=== PATIENT | female | born 1965 | race Caucasian/White ===

== ENCOUNTER 2025-08-10 14:55 | Emergency (ER) | payer OTHER, SELFPAY ==
--- NOTE | ~2025-08-10 | CT_ITS ---
Nanci Linder EXAMINATION: CT abdomen pelvis w con COMPARISON: None HISTORY: ab pain TECHNIQUE: Axial images were obtained through the abdomen, pelvis post administration of IV contrast. Oral contrast was also administered. Coronal reconstruction images were obtained from the axial views. CT scan performed using dose optimization techniques including the following automated exposure control; adjustment of mA and/or kV; use of iterative reconstruction technique. Automatic exposure control was used to reduce radiation dose. Permanent radiation dose record is archived to PACS. FINDINGS: CT abdomen: LUNG BASES: The lung bases demonstrate pulmonary fibrotic changes with basilar areas of atelectasis. LIVER: Mild hepatic steatosis. Portal vein patent. No intrahepatic biliary duct dilatation. SPLEEN: Unremarkable. KIDNEYS: Right Kidney: Right kidney subcentimeter renal cyst. Left Kidney: Left kidney subcentimeter renal cysts. ADRENAL GLANDS: Unremarkable. PANCREAS: Mild pancreatic atrophy. GALLBLADDER/BILIARY: Post cholecystectomy. STOMACH AND ESOPHAGUS: The stomach appears decompressed. BOWEL/MESENTERY: There are inflammatory changes surrounding the sigmoid colon consistent with acute diverticulitis, there is no perforation or abscess. Moderate fecal content throughout the remaining large bowel. Appendix normal. Mesentery normal. Small bowel prominent. Mild hyperemia noted of the rectum consistent with mild proctitis. ADENOPATHY/RETROPERITONEUM: No lymphadenopathy. AORTA/VASCULATURE: Partially imaged bilateral breast implants. FREE FLUID OR FREE AIR: Small amount of free fluid.. CT pelvis: SOLID ORGANS/REPRODUCTIVE: Uterine cavity is abnormally prominent in this postmenopausal patient, pelvic ultrasound recommended. No adnexal mass. BLADDER: Within normal limits. OSSEOUS STRUCTURES: No acute osseous abnormality.No suspicious lesions. OVERLYING SOFT TISSUES: Unremarkable. IMPRESSION: 1. Acute diverticulitis. No perforation or abscess. 2. incidental findings above Reviewed, dictated and finalized at location A.
[2025-08-10 15:03] VITALS: BP 155/110; PULSE 110; RESP 20; TEMP 36.6; O2SAT 96
--- NOTE | 2025-08-10 15:41 | ED.GENADULT ---
HPI - General Adult General Chief complaint: Abdominal Pain Stated complaint: abd pain Time Seen by Provider: 08/10/25 15:10 History of Present Illness HPI narrative: 60-year-old female presents emergency department for evaluation for diffuse abdominal pain. Patient states abdominal pain started last night and has progressively worsened. Patient stated initially began as lower abdominal pain and she suspected she was having issues with constipation. Patient reports over the course of the night that the pain became more diffuse. Patient states she did have some associated nausea and vomiting. Patient does have prior history of diverticulitis. Patient does have history of cholecystectomy. Patient still has her appendix. Related Data Allergies Allergy/AdvReac Type Severity Reaction Status Date / Time No Known Allergies Allergy Verified 08/10/25 15:00 Review of Systems Review of Systems: All systems reviewed & are unremarkable except as noted in HPI and below Exam Narrative: APPEARANCE: Well appearing, no pain, no distress, well-nourished. HEAD: normocephalic, atraumatic. EYES: PERRLA/EOMI, conjunctivae clear. NOSE: Normal no drainage EARS:TMS clear with good light reflex. THROAT: Pharynx clear, no exudate. NECK: Supple. No adenopathy, no masses. RESPIRATORY: Airway patent, respirations nonlabored. Clear to auscultation bilaterally, no rales, rhonchi, wheezing. CARDIOVASCULAR: Regular rate and rhythm without murmurs rubs or gallops. ABDOMINAL: Diffuse abdominal tenderness to palpation MUSCULOSKELETAL: Moves all extremities. Strength/ROM intact, No edema, No calf tenderness. NEURO: Alert. Cranial nerves II through XII intact. Good gait. Good coordination SKIN: Warm, dry. Normal Color Course Vital Signs Vital signs: Vital Signs Temperature 97.8 F 08/10/25 15:03 Pulse Rate 110 H 08/10/25 15:03 Respiratory Rate 08/10/25 15:03 Blood Pressure 155/110 H 08/10/25 15:03 Pulse Oximetry 96 08/10/25 15:03 Temperature 97.8 F 08/10/25 15:03 Pulse Rate 99 08/10/25 16:02 Respiratory Rate 08/10/25 16:02 Blood Pressure 164/105 H 08/10/25 16:02 Pulse Oximetry 100 08/10/25 16:02 Oxygen Delivery Room Air 08/10/25 16:02 Medical Decision Making [facility] Narrative Medical decision making narrative: 60-year-old female presents emergency department for evaluation for lower abdominal pain. Patient is afebrile but does have a leukocytosis of 18.7 hemoglobin 15.0. Patient is INR 1.0. No significant abnormalities on her CMP. UA was negative for infection. CT scan did show evidence of diverticulitis, with no abscess no perforation. Patient family updated the results of the workup. Patient was started on Augmentin in the emergency department will be discharged home on Augmentin. Patient did receive Dilaudid and a L of lactated Ringer's in the emergency department. Patient will be provided outpatient follow-up with GI. All questions concerns were addressed patient was well-appearing at time of discharge. Patient did feel improved with treatment. Differential Diagnosis Differential Diagnosis: Colitis, diverticulitis, UTI, appendicitis, perforated gastric ulcer Vital Signs Vital Signs: Vital Signs Temperature 97.8 F 08/10/25 15:03 Pulse Rate 110 H 08/10/25 15:03 Respiratory Rate 20 08/10/25 15:03 Blood Pressure 155/110 H 08/10/25 15:03 Pulse Oximetry 96 08/10/25 15:03 Temperature 97.8 F 08/10/25 15:03 Pulse Rate 99 08/10/25 16:02 Respiratory Rate 20 08/10/25 16:02 Blood Pressure 164/105 H 08/10/25 16:02 Pulse Oximetry 100 08/10/25 16:02 Oxygen Delivery Room Air 08/10/25 16:02 Lab Data Lab results reviewed: Yes I reviewed the patient's lab results. 08/10/25 16:01 08/10/25 16:01 Labs: Lab Results 08/10/25 Range/Units 16:01 WBC 18.7 H (4.5-10.0) K/mm3 RBC 4.81 (4.2-5.4) M/mm3 Hgb 15.0 (12.0-15.0) g/dL Hct 44.7 (37.0-47.0) % MCV 92.9 (80-100) fl MCH 31.2 (26-34) pg MCHC 33.6 (32-36) g/dl RDW 12.3 (11.5-14.5) % Plt Count 327 (150-375) k/mm3 MPV 9.0 (7.4-10.4) fl Immature Gran % (Auto) 0.5 (0-0.5) % Neut % (Auto) 85.4 H (45.5-73.1) % Lymph % (Auto) 6.2 L (18.3-44.2) % [place] % (Auto) 7.3 (2.6-8.5) % Eos % (Auto) 0.4 (0-4.4) % Baso % (Auto) 0.2 (0.2-1.2) % Lymph # (Auto) 1.15 (0.9-3.2) K/mm3 [place] # (Auto) 1.4 H (0.1-0.6) K/mm3 Eos # (Auto) 0.1 (0-0.3) K/mm3 Baso # (Auto) 0.0 (0.0-0.1) K/mm3 Abs Immat Gran (auto) 0.10 H (0.00-0.031) K/mm3 Absolute Neuts (auto) 15.9 H (1.3-6.7) K/mm3 Absolute Nucleated RBC 0.000 (0.0-0.012) K/mm3 Nucleated RBC % 0.0 (0.0-0.2) % PT 13.4 (11.1-14.7) Seconds INR 1.0 APTT 32.0 (22.3-36.8) Seconds Sodium 135 L (137-145) mmol/L Potassium 3.8 (3.4-5.0) mmol/L Chloride 101 (98-107) mmol/L Carbon Dioxide 25 (22-30) mmol/L Anion Gap 9 (4-12) mmol/L BUN 15 (7-17) mg/dL Creatinine 0.78 (0.7-1.0) mg/dL Estim Creat Clear Calc 57 ml/min Estimated GFR > 60 (59 - ) Glucose 119 H (65-110) mg/dL Lactic Acid 1.2 (0.7-2.0) mmol/L Calcium 9.1 (8.4-10.2) mg/dL Total Bilirubin 1.0 (0.2-1.3) mg/dL AST 25 (14-36) U/L ALT 22 (6-35) U/L Alkaline Phosphatase 102 (38-126) U/L Total Protein 7.2 (6.3-8.2) g/dL Albumin 4.1 (3.5-5.1) g/dL Lipase 25 (23-300) U/L Urine Color Dark yellow (Yellow) Urine Appearance Clear (Clear) Urine pH 6.0 (5.0-9.0) Ur Specific [place] 1.025 (1.001-1.035) Urine Protein Trace (Negative) mg/dL Urine Glucose (UA) Negative (Negative) mg/dL Urine Ketones Trace H (Negative) mg/dL Ur Blood (Man) 2+ H (Negative) Urine Nitrate Negative (Negative) Urine Bilirubin Negative (Negative) Urine Urobilinogen 1.0 (<2.0) mg/dL Leukocyte Esterase Rfl Trace H (Negative) LESLIE/UL Urine RBC 11-20 H (0-2) /hpf Urine WBC 0-5 (0-3) /hpf Ur Squamous Epith Cells Few (Few) /hpf Urine Bacteria None seen /hpf Urine Casts 0-2 Imaging Data Radiologist's impression: Impressions Abdomen/Pelvis CT 08/10/25 16:56 IMPRESSION: 1. Acute diverticulitis. No perforation or abscess. 2. incidental findings above Discharge Plan Discharge Clinical Impression: Diverticulitis Patient Disposition: Home Condition: Stable Instructions: Antibiotic Form, Diverticulitis (DC), Abdominal Pain (ED) Additional Instructions: Antibiotic as directed until completed. Ibuprofen for pain control. Media as needed for additional pain control. MiraLax to help with constipation. Switch to a clear liquid diet for the next 1-3 days. If you have any worsening symptoms please call or return to the emergency department. Have close follow-up with GI. Patient Language: Ivorian Prescriptions: New hydrocodone-acetaminophen 5-325 mg tablet 1 tablet PO Q12H PRN (Reason: pain) Qty: 10 0RF ondansetron 4 mg tablet,disintegrating 4 mg PO Q8H PRN (Reason: nausea and vomiting) Qty: 14 0RF amoxicillin-pot clavulanate 875-125 mg tablet 1 tablet PO Q12H 7 Days Qty: 14 0RF Follow-up/Referrals: PHYSICIAN,CIVIL ENGINEERING PROJECT MANAGER [Primary Care Provider, Internal Medicine] Foster Bhardwaj MD [Physician, Gastroenterology]
[2025-08-10 16:02] VITALS: BP 164/105; PULSE 99; RESP 20; O2SAT 100
[2025-08-10] MEDS: LACTATED RINGERS 1,000 ML 999 ML IV CONT (16:08)
[2025-08-10 16:09] LABS: Hematocrit 44.7 % (37.0-47.0); Hemoglobin 15.0 g/dL (12.0-15.0); Immature Granulocyte Percent A 0.5 % (0-0.5); Lymphocytes Absolute Auto 1.15 K/mm3 (0.9-3.2); Mean Corpuscular HGB Conc 33.6 g/dl (32-36); Mean Corpuscular Hemoglobin 31.2 pg (26-34); Mean Corpuscular Volume 92.9 fl (80-100); Nucleated Red Blood Cells Absolute Auto 0.000 K/mm3 (0.0-0.012); Nucleated Red Blood Cells Perc 0.0 % (0.0-0.2); Platelet Count Result 327 k/mm3 (150-375); Red Blood Count 4.81 M/mm3 (4.2-5.4); White Blood Count 18.7 K/mm3 (4.5-10.0)
[2025-08-10] MEDS: ONDANSETRON INJ 4 MG/2 ML VIAL IV PUSH (16:09)
[2025-08-10] MEDS: HYDROmorphone HCL INJ (*CRX) 1 MG/ML SYR IV PUSH (16:09)
[2025-08-10 16:13] LABS: Add Urine Microscopic? YES; Appearance Urine Clear (Clear); Glucose Urine UA Negative (Negative); Leukocyte Esterase Ur Trace LEU/UL (Negative); Nitrate Urine Negative (Negative); Non Pathogenic Casts 0-2; Specific Grav Ur 1.025 (1.001-1.035)
[2025-08-10 16:20] LABS: Alanine Aminotransferase 22 U/L (6-35); Albumin Level 4.1 g/dL (3.5-5.1); Alkaline Phosphatase 102 U/L (38-126); Anion Gap 9 mmol/L (4-12); Aspartate Amino Transferase 25 U/L (14-36); Bilirubin,Total 1.0 mg/dL (0.2-1.3); Blood Urea Nitrogen 15 mg/dL (7-17); Calcium 9.1 mg/dL (8.4-10.2); Carbon Dioxide 25 mmol/L (22-30); Chloride 101 mmol/L (98-107); Estimated CRCL calculation 57 ml/min; Estimated Glomerular Filt Rate > 60; Glucose 119 mg/dL (65-110); Lipase 25 U/L (23-300); Potassium 3.8 mmol/L (3.4-5.0); Sodium 135 mmol/L (137-145); Total Protein 7.2 g/dL (6.3-8.2)
[2025-08-10 16:27] LABS: INR 1.0; Prothrombin Time 13.4 Seconds (11.1-14.7)
[2025-08-10 16:28] LABS: Partial Thromboplastin Time 32.0 Seconds (22.3-36.8)
== END 2025-08-10 18:24 | disposition home or self-care (01) ==
PROVIDERS: Emergency Provider Emergency Medicine
DX: K57.92 Diverticulitis of intestine, part unspecified, without perforation or abscess without bleeding (principal)
CPT/HCPCS: 36415; 74177; 80053; 81001; 83605; 83690; 85025; 85610; 85730; 96361; 96374; 96375; 99284; A9270; J1171; J2405; J7120; Q9967

== ENCOUNTER 2025-08-11 22:27 | Inpatient (IN) | payer OTHER, SELFPAY ==
--- OUTSIDE RECORDS SUMMARY | 2025-07-15 09:45 | XMS_ITS | Continuity of Care Document ---
Author Organization [facility] Address [address] [place] [address] Phone Care Team Providers Care Liberal Arts Teacher Name Role Phone Scott Wood MD Unavailable Unavailable Allergies, Adverse Reactions, Alerts Substance Reaction Status Criticality alendronate sodium Other Active No Inform ation Medications Medication Instructions Dosage Effective Dates (start - stop) Status Comments Adderall 20 mg tablet take 4 tablets by oral route every day - Active F98.8 dicyclomine 20 mg tablet take 1 tablet by oral route 4 times every day as needed - Active Adderall 20 mg tablet take 4 tablets by oral route every day - No Longer Active F98.8 Procedures Procedure Date PREVENTATIVE-EST: 40-64 FALL PLAN OF CARE DOC'D URINE INCON PLAN DOC'D PRES/ABSN URINE INCON ASSESS OFFICE [id number] Advance Directives Directive Yes / No Effective Date File Name Life Support Not Answered N/A N/A Intubation Not Answered N/A N/A Antibiotics Not Answered N/A N/A IV Fluid Support Not Answered N/A N/A Tube Feed Not Answered N/A N/A Other Directive N/A N/A WARNING:The information contained in this section is historical and is provided for information only and does not constitute a legal document or any assurance that the information is still accurate. Please verify the information with the bateman of the legal document before using it for clinical purposes. Encounters Encounter Description Practice Location Reason(s) For Visit Diagnoses Date Provider Providers Copied on Encounter [facility], [address], [place], [place], [address] , tel: [phone] [facility] No Information 5 Israel Chavez. [address] [place] [address], [address] , [place], [place], [address], . tel:[phone] [facility], [address], [place], [place], [address] , tel: [phone] [facility] No Information 5 Israel Chavez. [address] [place] [address], [address], [place], [place], [address], . tel:[phone] [facility], [address], [place], [place], [address] , tel: [phone] [facility] No Information 4 Israel Chavez. [address] [place] [address], [address] , [place], [place], [address], . tel:[phone] PREVENTATIVE -EST: 40-64 [facility], [address], [place], [place], [address] , tel: [phone] [facility] Chronic Conditions (chief complaint) Encounter for annual health examinationAttenti on deficit disorder (ADD) without hyperactivityBody mass index [BMI] 28.0-28.9, adult 2 Israel Chavez. [address] [place] [address], [address] , [place], [place], [address], . tel:[phone] Referring Provider: Scott Wood, [address] [place] [address] Suite [facility], [place], [address] . tel:[phone] [facility], [address], [place], [place], [address] , tel: [phone] [facility] Chest pain, unspecified type 1 Israel Chavez. [address] [place] [address], [address] , [place], [place], [address], . tel:[phone] OFFICE [id number]-FMT-VN TAILED [facility], [address], [place], [place], [address] , tel: [phone] [facility] bumps in scalp (chief complaint) Scaly patch rashBody mass index (BMI) 28.0-28.9, adult 9 Ash Randolph. [address] [place] [address], [address] , [place], [place], [address], . tel:[phone] Referring Provider: Scott Wood, [address] [place] [address] [address] , [place], [address] . tel:[phone] [facility], [address], [place], [place], [address] , tel:[phone] [facility] Encounter for general health examinationLactose intoleranceADD (attention deficit disorder) without hyperactivityAnxie ty and depression 8 Israel Chavez. [address] [place] [address], [address] , [place], [place], [address], . tel:[phone] Referring Provider: Scott Wood, [address] [place] [address], [place], [place], [address] [place] [address] . tel:[phone] [facility] [address], [place], [place], [address] , tel:[phone] [facility] Encounter for general health examinationADD (attention deficit disorder)Anxiety and depressionIrritabl e bowel syndrome without diarrheaHeadache 5 Israel Chavez. [address] [place] [address], [address] , [place], [place], [address], . tel:[phone] Referring Provider: Scott Wood, [address] [place] [address] [address] , [place], [address] . tel:[phone] [facility], Box [facility], [place], [place], [address] , tel:[phone] [facility] Attention deficit disorder without mention of hyperactivityDysth ymic disorderAbdominal pain 2 Israel Chavez. [address] [place] [address], [address] , [place], [place], [address], . tel:[phone] Referring Provider: Scott Wood, [address] [place] [address] [address] , [place], [address] . tel:[phone] [facility], [address], [place], [place], [address] , tel: [phone] [facility] Menopausal or female climacteric states Israel Chavez. [address] [place] [address], [address], [place], [place], [address], . tel: [phone] [facility], [address], [place], [place], [address] , [place] tel: [phone] [facility] ATTN DEFIC NONHYPERACT 0 Israel Chavez. [address] [place] [address], [address], [place], [place], [address], [place]. tel: [phone] [facility], [address], [place], [place], [address] , [place] tel: [phone] [facility] DEPRESSIVE DISORDER NEC 0200 9 Conversion Doctor. [facility] [place], [address], [place]. [facility], [address], [place], [place], [address] , [place] tel: [phone] [facility] LUMBAGO 9200 8 Conversion Doctor. [facility] [place], [address], [place]. [facility], [address], [place], [place], [address] , [place] tel: [phone] [facility] ANXIETY STATE NOS 200 8 Conversion Doctor. [facility] [place], [address], [place]. [facility], [address], [place], [place], [address] , [place] tel: [phone] [facility] THRUSH 200 8 Conversion Doctor. [facility] [place], [address], [place]. [facility], [address], [place], [place], [address] , [place] tel: [phone] [facility] BONE & CARTILAGE DIS NOS 6 Israel Chavez. [address] [place] [address], [address], [place], [place], [address], [place]. tel: [phone] [facility], [address], [place], [place], [address] , [place] tel: [phone] [facility] ESOPHAGEAL REFLUX 5 Israel Chavez. [address] [place] [address], [address], [place], [place], [address], [place]. tel:[phone] [facility], [address], [place], [place], [address] , tel: [phone] [facility] GOITER NOS Sep-0 3 Israel Chavez. [address] [place] [address], [address], [place], [place], [address], [place]. tel:[phone] Family History Family Member Type Diagnosis Age At Onset Mother Problem (finding) Cancer, brain Mother Problem (finding) hypertension Mother Problem (finding) depression Payers Payer name Insurance type Covered republican ID Authoriza tion(s) No Information Social History Type Description Quantity Date Captured Comments Alcohol Use Details Unknown Caffeine Use Details Unknown Tobacco Use Status No Information Smoking Status No Information Sex Female Chief Complaint And Reason For Visit No Information Reason For Referral Reason For Referral No Information Plan Of Treatment Date Type Action Status Goal Dietary manageme nt education, guidance, and counseling completed Goal Dietary manageme nt education, guidance, and counseling completed Patient Education Rash: Care Instructions completed History Of Present Illness Encounter Date Complaint History Of Prese nt Illness Chronic Conditions *See Chronic Conditions HPI bumps in scalp The symptoms be alfonso 5 weeks ago. She notes for about 5 weeks she has had 'itchy bumps on her scalp. Initially on right side at base of scalp and neck, but now through out scalp. She states she has used antifungal cream, essential oils, olive oil, coconut oil, and apple cider vinegar. She states she used baby shampoo, Head and Shoulders shampoo but usually uses Suave or Equate Aussie. She states she has not recently used hair color on her hair. Functional Status Date Functional Assessmen t No Information Instructions Date Instruction Additional Infor mation Continue current medications for now. Related to Attention deficit disorder (ADD) without hyperactivity Get appropriate vacc steph. Return 1 year Related to Encounter for annual health examination Giving encouragement to exercise Related to Body mass index (BMI) 28.0-28.9, adult Dietary management e ducation, guidance, and counseling Related to Body mass index (BMI) 28.0-28.9, adult Disease process She notes for about 5 weeks she has had 'itchy bumps on her scalp. Initially on right side at base of scalp and neck, but now through out scalp. She states she has used antifungal cream, essential oils, olive oil, coconut oil, and apple cider vinegar. She states she used baby shampoo, Head and Shoulders shampoo but usually uses Suave or Equate Aussie. She states she has not recently used hair color on her hair. Related to Scaly patch rash Disease process Prescribed activity/ exercise education Related to Body mass index (BMI) 28.0-28.9, adult Dietary management e ducation, guidance, and counseling Related to Body mass index (BMI) 28.0-28.9, adult Assessments Type Assessment Date No Information Patient Care Teams Name Effective Dates (start - stop) Status Members No Information
--- OUTSIDE RECORDS SUMMARY | 2025-07-15 09:45 | XMS_ITS | Continuity of Care Document ---
Author Organization [facility] Address [address] [place] [address] Phone Care Team Providers Care Coal Inspector Name Role Phone Scott Wood MD Unavailable [...] PLAN DOC'D PRES/ABSN URINE INCON ASSESS OFFICE [id number] Advance Directives Directive Yes / No Effective [...] Diagnoses Date Provider Providers Copied on Encounter [facility], [address], [place], [place], [address] , tel: [phone] [facility] No Information 5 Israel Chavez. [address] [place] [address], [address] , [place], [place], [address], . tel:[phone] [facility], [address], [place], [place], [address] , tel: [phone] [facility] No Information 5 Israel Chavez. [address] [place] [address], [address], [place], [place], [address], . tel:[phone] [facility], [address], [place], [place], [address] , tel: [phone] [facility] No Information 4 Israel Chavez. [address] [place] [address], [address] , [place], [place], [address], . tel:[phone] PREVENTATIVE -EST: 40-64 [facility], [address], [place], [place], [address] , tel: [phone] [facility] Chronic Conditions (chief complaint) Encounter for annual health examinationAttenti on deficit disorder (ADD) without hyperactivityBody mass index [BMI] 28.0-28.9, adult 2 Israel Chavez. [address] [place] [address], [address] , [place], [place], [address], . tel: [phone] Referring Provider: Scott Wood, [address] [place] [address] Suite [facility], [place], [address] . tel:[phone] [facility], [address], [place], [place], [address] , tel: [phone] [facility] Chest pain, unspecified type 1 Israel Chavez. [address] [place] [address], [address] , [place], [place], [address], . tel:[phone] OFFICE [id number]-VZD-EP TAILED [facility], [address], [place], [place], [address] , tel: [phone] [facility] bumps in scalp (chief complaint) Scaly patch rashBody mass index (BMI) 28.0-28.9, adult 9 Ash Randolph. [address] [place] [address], [address] , [place], [place], [address], . tel:[phone] Referring Provider: Scott Wood, [address] [place] [address] [address] , [place], [address] . tel:[phone] [facility], [address], [place], [place], [address] , tel:[phone] [facility] Encounter for general health examinationLactose intoleranceADD (attention deficit disorder) without hyperactivityAnxie ty and depression 8 Israel Chavez. [address] [place] [address], [address] , [place], [place], [address], . tel:[phone] Referring Provider: Scott Wood, [address] [place] [address], [place], [address] [place] [address] . tel:[phone] [facility] [address], [place], [place], [address] , tel:[phone] [facility] Encounter for general health examinationADD (attention deficit disorder)Anxiety and depressionIrritabl e bowel syndrome without diarrheaHeadache 5 Israel Chavez. [address] [place] [address], [address] , [place], [place], [address], . tel:[phone] Referring Provider: Scott Wood, [address] [place] [address] [address] , [place], [address] . tel:[phone] [facility], Box [facility], [place], [place], [address] , tel:[phone] [facility] Attention deficit disorder without mention of hyperactivityDysth ymic disorderAbdominal pain 2 Israel Chavez. [address] [place] [address], [address] , [place], [place], [address], . tel:[phone] Referring Provider: Scott Wood, [address] [place] [address] [address] , [place], [address] . tel:[phone] [facility], [address], [place], [place], [address] , tel: [phone] [facility] Menopausal or female climacteric states Israel Chavez. [address] [place] [address], [address], [place], [place], [address], . tel: [phone] [facility], [address], [place], [place], [address] , [place] tel: [phone] [facility] ATTN DEFIC NONHYPERACT 0 Israel Chavez. [address] [place] [address], [address], [place], [place], [address], [place]. tel: [phone] [facility], [address], [place], [place], [address] , [place] tel: [phone] [facility] DEPRESSIVE DISORDER NEC 0200 9 Conversion Doctor. [facility] [place], [address], [place]. [facility], [address], [place], [place], [address] , [place] tel: [phone] [facility] LUMBAGO 9200 8 Conversion Doctor. [facility] [place], [address], [place]. [facility], [address], [place], [place], [address] , [place] tel: [phone] [facility] ANXIETY STATE NOS 200 8 Conversion Doctor. [facility] [place], [address], [place]. [facility], [address], [place], [place], [address] , [place] tel: [phone] [facility] THRUSH 200 8 Conversion Doctor. [facility] [place], [address], [place]. [facility], [address], [place], [place], [address] , [place] tel: [phone] [facility] BONE & CARTILAGE DIS NOS 6 Israel Chavez. [address] [place] [address], [address], [place], [place], [address], [place]. tel: [phone] [facility], [address], [place], [address] , [place] tel: [phone] [facility] ESOPHAGEAL REFLUX [address] [place] [address], [address], [place], [place], [address], [place]. tel:[phone] [facility], [address], [place], [place], [address] , tel: [phone] [facility] GOITER NOS Sep-0 3 Israel Chavez. [address] [place] [address], [address], [place], [place], [address], [place]. tel:[phone] Family History Family Member Type Diagnosis Age At Onset Mother Problem (finding) Cancer, brain Mother Problem (finding) hypertension Mother Problem (finding) depression Payers Payer name Insurance type Covered green party ID Authoriza tion(s) No Information Social History [...]
--- NOTE | ~2025-08-11 | XR_ITS ---
Examination: XR chest 1V portable Clinical History: chest pain Comparison: 08/12/2025 Technique: Portable AP Findings: Heart size normal. Worsening right basilar opacity. Unchanged to slight worsening left basilar opacity. No acute bony abnormality. IMPRESSION: 1. Further worsening bibasilar atelectasis and/or airspace disease. Reviewed, dictated and finalized at location R.
--- NOTE | ~2025-08-11 | XR_ITS ---
Abdominal radiograph(s) INDICATION: Abdominal pain COMPARISON: CT abdomen and pelvis 08/12/2025 TECHNIQUE: Supine AP abdomen FINDINGS: Gaseous dilatation of small bowel loops with air-fluid levels. Scattered colonic gas. Left upper quadrant subdiaphragmatic gastric air. Midline skin shannon. IMPRESSION: 1. Consistent with small bowel obstruction. Reviewed, dictated and finalized at location R.
--- NOTE | ~2025-08-11 | CT_ITS ---
CT abdomen pelvis w con Clinical History: small bowel obstruction . Comparison: X-rays today CT abdomen pelvis 08/19/2025 Technique: Axial images lung bases to symphysis pubis IV contrast information not listed in PACS Coronal, sagittal reformats CT images acquired with automatic exposure control for dose reduction DLP: 566 mGy-cm Findings: Lung bases: Small effusions, associated dependent atelectasis, right side worse. Visualized heart and pericardium: Unremarkable. Liver: Unremarkable. Gallbladder: Removed. Spleen: Unremarkable. Pancreas: Unremarkable. Adrenal glands: Unremarkable. Kidneys: Right kidney- No hydronephrosis. No renal stones. Small cyst. Left kidney- No hydronephrosis. No renal stones. Distal esophagus/stomach: Unremarkable. Small bowel loops: Dilated loops, air-fluid levels. Wall thickening loops lower mid abdomen. Transition point best seen left lower quadrant coronal sequence image 38. Colon: Leslee pouch. Left lower quadrant end colostomy. Diverticula. Normal right lower quadrant appendix. Nodes: No enlarged nodes. Peritoneum: Moderate scattered ascites. No free air. Urinary bladder: Unremarkable. Uterus: Unremarkable. Adnexa: No masses. Small pelvic free fluid, enhancing periphery. Bones: No acute bony abnormality. Soft tissues: Breast implants, with intracapsular rupture left side. Aorta: No aneurysm or dissection. IVC: Unremarkable. Main portal vein/SMV/splenic vein: Patent. IMPRESSION: 1. Small bowel obstruction due to enteritis. 2. Moderate scattered ascites, including fluid within rectouterine space. Peritonitis cannot be excluded. Reviewed, dictated and finalized at location R. IMPRESSION: 1. Small bowel obstruction due to enteritis. 2. Moderate scattered ascites, including fluid within rectouterine space. Lizeth tonitis cannot be excluded.
--- NOTE | ~2025-08-11 | XR_ITS ---
EXAMINATION: XR abdomen gastric tube insert, 08/17/2025 16:54 CDT HISTORY: NG confirmation COMPARISON: No comparisons available. Technique: 3 view. Findings: There are dilated loops of small bowel the largest 4 cm. No free air. No abnormal calcifications No acute osseous abnormality. Nasogastric tube terminates in the mid stomach. Impression: 1. Nasogastric tube in appropriate location. Small bowel obstruction Reviewed, dictated and finalized at location P. Impression: 1. Nasogastric tube in appropriate location. Small bowel obstruction
--- NOTE | ~2025-08-11 | CT_ITS ---
EXAMINATION: CT abdomen pelvis w con DATE: 08/12/2025 01:05 INDICATION: Generalized abdominal pain. TECHNIQUE: Computed tomography (CT) of the abdomen and pelvis was performed with 100 mL Omnipaque 350 intravenous contrast. Automated exposure control and iterative reconstruction technique were employed. The dose-length product was 648.90 mGy-cm. COMPARISON: CT abdomen and pelvis 08/10/2025 FINDINGS: The visualized portions of lung bases demonstrate moderate atelectasis. No pleural effusion. The heart size is normal. No pericardial effusion. There are bilateral breast implants with intracapsular rupture on the left. The liver and spleen are normal. There are changes of cholecystectomy. The pancreas and adrenal glands are normal. There are cysts in the kidneys measuring up to 12 mm on the right. There are scattered diverticula in the colon. There is distention of the sigmoid colon with surrounding fat stranding and extraluminal gas. The appendix is normal. There are no pathologically enlarged lymph nodes. There is a small volume of ascites. There is mild thoracic spondylosis and moderate lumbar spondylosis. IMPRESSION: 1. Perforated sigmoid diverticulitis. 2. Small volume of ascites. Reviewed, dictated and finalized at location E.
--- NOTE | ~2025-08-11 | XR_ITS ---
Examination: XR chest 1V portable Clinical History: hypoxia, abnormal lung exam Comparison: None Technique: Portable AP Findings: Heart size normal. Streaky bibasilar opacities. No acute bony abnormality. IMPRESSION: 1. Worsening bibasilar atelectasis and/or airspace disease. Reviewed, dictated and finalized at location R.
[2025-08-11 22:29] VITALS: BP 138/81; PULSE 133; RESP 18; TEMP 36.5; O2SAT 93
--- OUTSIDE RECORDS SUMMARY | 2025-08-11 22:30 | XMS_ITS | Encounter Summary ---
Author Organization [facility] Health Address [address] [place] [address] Care Team Providers Care Special Procedure Technologist Name Role Phone Unavailable Primary Care Provider Unavailabl e Prior Encounters Date Type Department Care Team Description 01/27/2023 11:30 AM MANAGER TRACK Office Visit [facility] [address] [place] [phone] Bobo Noe DDS Last Filed Vital Signs Vital Sign Reading Time Taken Comments Blood Pressure 151/96 01/27/2023 12:35 PM MANAGER TRACK Pulse 92 01/27/2023 12:35 PM MANAGER TRACK Temperature - - Respiratory Rate - - Oxygen Saturation - - Inhaled Oxygen Concentration - - Weight 68 kg (150 lb) 01/27/2023 12:35 PM MANAGER TRACK Height 154.9 cm (5' 1) 01/27/2023 12:35 PM MANAGER TRACK Body Mass Index 28.34 01/27/2023 12:35 PM MANAGER TRACK Plan of Treatment Not on file Procedures Procedure Name Priority Date/Time Associated Diagnosis Comments INTRAORAL PHOTO Routine 01/27/2023 11:30 AM MANAGER TRACK INTRAORAL PHOTO Routine 01/27/2023 11:30 AM MANAGER TRACK INTRAORAL PHOTO Routine 01/27/2023 11:30 AM MANAGER TRACK INTRAORAL PHOTO Routine 01/27/2023 11:30 AM MANAGER TRACK PANORAMIC RADIOGRAPHIC IMAGE Routine 01/27/2023 11:30 AM MANAGER TRACK INTRAORAL - COMPREHENSIVE SERIES OF RADIOGRAPHIC IMAGES Routine 01/27/2023 11:30 AM MANAGER TRACK COMPREHENSIVE ORAL EVALUATION - NEW OR ESTABLISHED PATIENT Routine 01/27/2023 11:30 AM MANAGER TRACK 30 MODL COMPOSITE FILLING Routine 2022 12:00 AM MANAGER TRACK 31 O AMALGAM FILLING Routine 01/27/2023 12:00 AM MANAGER TRACK 20 O AMALGAM FILLING Routine 01/27/2023 12:00 AM MANAGER TRACK 19 O AMALGAM FILLING Routine 01/27/2023 12:00 AM MANAGER TRACK 18 O AMALGAM FILLING Routine 01/27/2023 12:00 AM MANAGER TRACK 15 O AMALGAM FILLING Routine 01/27/2023 12:00 AM MANAGER TRACK 14 LO AMALGAM FILLING Routine 01/27/2023 12:00 AM MANAGER TRACK 13 O COMPOSITE FILLING Routine 12:00 AM MANAGER TRACK 10 L COMPOSITE FILLING Routine 12:00 AM MANAGER TRACK 4 O AMALGAM FILLING Routine 01/27/2023 1 2:00 AM MANAGER TRACK 3 LO AMALGAM FILLING Routine 01/27/2023 12:00 AM MANAGER TRACK 2 O AMALGAM FILLING Routine 01/27/2023 1 2:00 AM MANAGER TRACK Visit Diagnoses Not on file [facility]
--- OUTSIDE RECORDS SUMMARY | 2025-08-11 22:30 | XMS_ITS | Clinical Summary ---
Author Organization [facility] Health Address [address] [place] [address] Care Team Providers Care History Department Chair Name Role Phone Unavailable Primary Care Provider Unavailabl e Medications amphetamine-dext roamphetamine (ADDERALL) 20 mg tablet Take 20 mg by mouth 1 (one) time each day. Active Active Problems Problem Noted Date Diagnosed Date Screening for condition 11/15/2010 Overview (01/27/2023): Adult Abstraction Problem List Screening Pap Smear: Result: 11/01/2010 abnormal lgsil Mammogram: Unknown not in chart Social History Tobacco Use Types Packs/Day Years Used Date Smoking Tobacco: Never Assessed Comments Unknown Sex and Gender Information Value Date Recorded Sex Assigned at Not on file Legal Sex Female 7:21 AM PST Gender Identity Female 01/26/2023 6:30 AM PST Sexual Orientation Not on file Last Filed Vital Signs Vital Sign Reading Time Taken Comments Blood Pressure 151/96 01/27/2023 12:35 PM RELATIONS COORDINATOR Pulse 92 01/27/2023 12:35 PM RELATIONS COORDINATOR Temperature - - Respiratory Rate - - Oxygen Saturation - - Inhaled Oxygen Concentration - - Weight 68 kg (150 lb) 01/27/2023 12:35 PM RELATIONS COORDINATOR Height 154.9 cm (5' 1) 01/27/2023 12:35 PM RELATIONS COORDINATOR Body Mass Index 28.34 01/27/2023 12:35 PM RELATIONS COORDINATOR Plan of Treatment Health Maintenance Due Date Last Done Comments Dental Prophylaxis 1965 Dental Oral Exam 07/31/2023 01/27/2023 Dental X-Ray: Bitewings 07/31/2023 01/27/2023 Dental X-Ray: Full Mouth 01/28/2026 01/27/2023 Dental X-Ray: Panoramic 01/28/2026 01/27/2023 Procedures Procedure Name Priority Date/Time Associated Diagnosis Comments PANORAMIC RADIOGRAPHIC IMAGE Routine 01/27/2023 11:30 AM RELATIONS COORDINATOR INTRAORAL - COMPREHENSIVE SERIES OF RADIOGRAPHIC IMAGES Routine 01/27/2023 11:30 AM RELATIONS COORDINATOR COMPREHENSIVE ORAL EVALUATION - NEW OR ESTABLISHED PATIENT Routine 01/27/2023 11:30 AM RELATIONS COORDINATOR from Last 3 Months or Most Recently Relevant to Health Maintenance [facility] [place] [id number]
[2025-08-11 22:50] LABS: Hematocrit 42.8 % (37.0-47.0); Hemoglobin 14.5 g/dL (12.0-15.0); Immature Granulocyte Percent A 1.7 % (0-0.5); Lymphocytes Absolute Auto 1.34 K/mm3 (0.9-3.2); Mean Corpuscular HGB Conc 33.9 g/dl (32-36); Mean Corpuscular Hemoglobin 31.5 pg (26-34); Mean Corpuscular Volume 93.0 fl (80-100); Nucleated Red Blood Cells Absolute Auto 0.000 K/mm3 (0.0-0.012); Nucleated Red Blood Cells Perc 0.0 % (0.0-0.2); Platelet Count Result 311 k/mm3 (150-375); Red Blood Count 4.60 M/mm3 (4.2-5.4); White Blood Count 31.6 K/mm3 (4.5-10.0)
[2025-08-11 23:08] LABS: Alanine Aminotransferase 26 U/L (6-35); Albumin Level 3.7 g/dL (3.5-5.1); Alkaline Phosphatase 99 U/L (38-126); Anion Gap 9 mmol/L (4-12); Aspartate Amino Transferase 39 U/L (14-36); Bilirubin,Total 1.3 mg/dL (0.2-1.3); Blood Urea Nitrogen 13 mg/dL (7-17); Calcium 8.8 mg/dL (8.4-10.2); Carbon Dioxide 22 mmol/L (22-30); Chloride 100 mmol/L (98-107); Estimated CRCL calculation 56 ml/min; Estimated Glomerular Filt Rate > 60; Glucose 138 mg/dL (65-110); Lipase 14 U/L (23-300); Potassium 3.9 mmol/L (3.4-5.0); Sodium 131 mmol/L (137-145); Total Protein 6.8 g/dL (6.3-8.2)
[2025-08-11 23:16] VITALS: BP 123/81; PULSE 122; RESP 31; O2SAT 93
[2025-08-11 23:45] VITALS: BP 132/83; PULSE 112; RESP 19; O2SAT 91
[2025-08-11 23:51] VITALS: BP 141/75; PULSE 106; RESP 18; O2SAT 99
--- NOTE | 2025-08-11 23:55 | PC.NURSE ---
Pt was seen in ED yesterday for similar symptoms but have worsen, pt was diagnosed with diverticulitis but states medication has not helped.
--- OUTSIDE RECORDS SUMMARY | 2025-08-11 23:58 | XMS_ITS | Clinical Summary ---
Author Organization [facility] Health Address [address] [place] [address] Care Team Providers Care Leadership Program Associate Name Role Phone Unavailable Primary Care Provider [...] Comments Blood Pressure 151/96 01/27/2023 12:35 PM TRAINING INSTRUCTOR Pulse 92 01/27/2023 12:35 PM TRAINING INSTRUCTOR Temperature - - Respiratory Rate - - Oxygen Saturation - - Inhaled Oxygen Concentration - - Weight 68 kg (150 lb) 01/27/2023 12:35 PM TRAINING INSTRUCTOR Height 154.9 cm (5' 1) 01/27/2023 12:35 PM TRAINING INSTRUCTOR Body Mass Index 28.34 01/27/2023 12:35 PM TRAINING INSTRUCTOR Plan of Treatment Health Maintenance Due Date Last Done Comments Dental Prophylaxis 1965 Dental Oral Exam 07/31/2023 01/27/2023 Dental X-Ray: Bitewings 07/31/2023 01/27/2023 Dental X-Ray: Full Mouth 01/28/2026 01/27/2023 Dental X-Ray: Panoramic 01/28/2026 01/27/2023 Procedures Procedure Name Priority Date/Time Associated Diagnosis Comments PANORAMIC RADIOGRAPHIC IMAGE Routine 01/27/2023 11:30 AM TRAINING INSTRUCTOR INTRAORAL - COMPREHENSIVE SERIES OF RADIOGRAPHIC IMAGES Routine 01/27/2023 11:30 AM TRAINING INSTRUCTOR COMPREHENSIVE ORAL EVALUATION - NEW OR ESTABLISHED PATIENT Routine 01/27/2023 11:30 AM TRAINING INSTRUCTOR from Last 3 Months or Most Recently Relevant to Health Maintenance [facility] [place] [place] [id number]
--- OUTSIDE RECORDS SUMMARY | 2025-08-11 23:58 | XMS_ITS | Encounter Summary ---
Author Organization [facility] Health Address [address] [place] [address] Care Team Providers Care Torch Shearer Name Role Phone Unavailable Primary Care Provider Unavailabl e Prior Encounters Date Type Department Care Team Description 01/27/2023 11:30 AM FLASH DRIER OPERATOR Office Visit [facility] [address] [place] [phone] Bobo Noe DDS Last Filed Vital Signs Vital Sign Reading Time Taken Comments Blood Pressure 151/96 01/27/2023 12:35 PM FLASH DRIER OPERATOR Pulse 92 01/27/2023 12:35 PM FLASH DRIER OPERATOR Temperature - - Respiratory Rate - - Oxygen Saturation - - Inhaled Oxygen Concentration - - Weight 68 kg (150 lb) 01/27/2023 12:35 PM FLASH DRIER OPERATOR Height 154.9 cm (5' 1) 01/27/2023 12:35 PM FLASH DRIER OPERATOR Body Mass Index 28.34 01/27/2023 12:35 PM FLASH DRIER OPERATOR Plan of Treatment Not on file Procedures Procedure Name Priority Date/Time Associated Diagnosis Comments INTRAORAL PHOTO Routine 01/27/2023 11:30 AM FLASH DRIER OPERATOR INTRAORAL PHOTO Routine 01/27/2023 11:30 AM FLASH DRIER OPERATOR INTRAORAL PHOTO Routine 01/27/2023 11:30 AM FLASH DRIER OPERATOR INTRAORAL PHOTO Routine 01/27/2023 11:30 AM FLASH DRIER OPERATOR PANORAMIC RADIOGRAPHIC IMAGE Routine 01/27/2023 11:30 AM FLASH DRIER OPERATOR INTRAORAL - COMPREHENSIVE SERIES OF RADIOGRAPHIC IMAGES Routine 01/27/2023 11:30 AM FLASH DRIER OPERATOR COMPREHENSIVE ORAL EVALUATION - NEW OR ESTABLISHED PATIENT Routine 01/27/2023 11:30 AM FLASH DRIER OPERATOR 30 MODL COMPOSITE FILLING Routine 2022 12:00 AM FLASH DRIER OPERATOR 31 O AMALGAM FILLING Routine 01/27/2023 12:00 AM FLASH DRIER OPERATOR 20 O AMALGAM FILLING Routine 01/27/2023 12:00 AM FLASH DRIER OPERATOR 19 O AMALGAM FILLING Routine 01/27/2023 12:00 AM FLASH DRIER OPERATOR 18 O AMALGAM FILLING Routine 01/27/2023 12:00 AM FLASH DRIER OPERATOR 15 O AMALGAM FILLING Routine 01/27/2023 12:00 AM FLASH DRIER OPERATOR 14 LO AMALGAM FILLING Routine 01/27/2023 12:00 AM FLASH DRIER OPERATOR 13 O COMPOSITE FILLING Routine 12:00 AM FLASH DRIER OPERATOR 10 L COMPOSITE FILLING Routine 12:00 AM FLASH DRIER OPERATOR 4 O AMALGAM FILLING Routine 01/27/2023 1 2:00 AM FLASH DRIER OPERATOR 3 LO AMALGAM FILLING Routine 01/27/2023 12:00 AM FLASH DRIER OPERATOR 2 O AMALGAM FILLING Routine 01/27/2023 1 2:00 AM FLASH DRIER OPERATOR Visit Diagnoses Not on file [place] [address]
--- OUTSIDE RECORDS SUMMARY | 2025-08-11 23:58 | XMS_ITS | Clinical Summary ---
Author Organization [facility] Address [address] [place] [id number] Care Team Providers Care Senior Sales Representative Name Role Phone Scott Wood MD Primary Care Provider [phone] Medications dextroamphetamin e-amphetamine (ADDERALL) 20 mg tablet Take 20 mg by mouth daily. Active bupropion HCl (WELLBUTRIN ORAL) Take by mouth. Active ibuprofen (MOTRIN) 600 mg tablet Take 1 Tablet (600 mg) by mouth 3 times daily with meals. 20 Tablet 01/17/2019 Active Social History Tobacco Use Types Packs/Day Years Used Date Smoking Tobacco: Never Smokeless Tobacco: Never Alcohol Use Standard Drinks/Week Comments No 0 (1 standard drink = 0.6 oz pur e alcohol) Comments No Sex and Gender Information Value Date Recorded Sex Assigned at Not on file Legal Sex Female 3:06 PM ESTATE ATTORNEY Gender Identity Not on file Sexual Orientation Not on file Last Filed Vital Signs Vital Sign Reading Time Taken Comments Blood Pressure 151/83 01/17/2019 3:20 PM ESTATE ATTORNEY Pulse 116 01/17/2019 3:20 PM ESTATE ATTORNEY Temperature 36.7 C (98.1 F) 01/17/2019 3:20 PM ESTATE ATTORNEY Respiratory Rate 18 01/17/2019 3:20 PM ESTATE ATTORNEY Oxygen Saturation 98% 01/17/2019 3:20 PM ESTATE ATTORNEY Inhaled Oxygen Concentration - - Weight 65.8 kg (145 lb) 01/17/2019 3:20 PM ESTATE ATTORNEY Height 154.9 cm (5' 1) 01/17/2019 3:20 PM ESTATE ATTORNEY Body Mass Index 27.4 01/17/2019 3:20 PM ESTATE ATTORNEY Plan of Treatment Health Maintenance Due Date Last Done Comments DTAP/TDAP/TD VACCINES (1 - Tdap) 1982 HPV/Cotest (21-29) 1984 CERVICAL CANCER SCREENING 1993 HPV/Cotest (30-65) 1993 PAP SMEAR 1993 COLORECTAL SCREENING 2008 Colorectal Cancer Screening 2008 FIT-DNA Q 3 years 2008 FIT/FOBT Q 1 year 2008 Flex Sig/CT Colonography Q 5 years 2008 ZOSTER VACCINE (1 of 2) 2013 BREAST CANCER SCREENING 11/02/2017 11/02/2016, 11/02 INFLUENZA VACCINE (#1) 2025 RSV VACCINE (60+ or ) (1 - 1-dose 75+ series) 2038 Insurance [employer] Care Teams Senior Sales Representative Relationship Specialty [place] [id number] [facility] [address] [place] [address] PCP - General Internal Medicine 01/17/19
[2025-08-12] VITALS (45 sets, daily range): BP systolic 109–147; BP diastolic 66–97; PULSE 100–124; RESP 14–33; TEMP 36.6–37.4; O2SAT 83–99; BMI 34.4
[2025-08-12] MEDS: LACTATED RINGERS 1,000 ML 999 ML IV CONT ×2 (00:16→04:25)
[2025-08-12 00:32] LABS: Non Pathogenic Casts 0-2
[2025-08-12] MEDS: HYDROmorphone HCL INJ (*CRX) 1 MG/ML SYR 0.5 MG IV PUSH ×2 (00:36→06:07)
[2025-08-12] MEDS: METOCLOPRAMIDE HCL INJ 10 MG/2 ML VIAL IV PUSH (00:37)
[2025-08-12 00:42] LABS: Add Urine Microscopic? YES; Appearance Urine Cloudy (Clear); Glucose Urine UA Negative (Negative); Leukocyte Esterase Ur Trace LEU/UL (Negative); Nitrate Urine Negative (Negative); Specific Grav Ur 1.028 (1.001-1.035)
--- NOTE | 2025-08-12 01:11 | PC.NURSE ---
pt returned from CT
[2025-08-12] MEDS: HYDROmorphone HCL INJ (*CRX) 1 MG/ML SYR IV PUSH ×4 (03:10→20:53)
[2025-08-12] MEDS: PIPERACILLIN/TAZOBACTAM SOD 3.375 GM in SODIUM CHLORIDE 0.9% IV 50 ML 100 ML IVPB (03:58)
--- NOTE | 2025-08-12 05:34 | P.HP_ITS ---
H&P: HPI History of Present Illness Date/Time: 08/12/25 05:34 Chief Complaint: Abdominal pain Narrative: 60-year-old female, prior smoker, current vape addiction, presents with abdominal pain worse the day prior she was reportedly diagnosed with diverticulitis recently. She reports she drinks alcohol but cannot tell me how much. She is to focused on her abdominal pain. Initial evaluation in the ER revealed WBC 63109, hemoglobin 14.5, no bandemia but neutrophilia, INR PTT pending. Sodium 131, creatinine 0.79, glucose 138, lactic acid 1.2, AST 39, ALT 26, alkaline phosphatase 99, BNP pending, lipase 14. Urinalysis grossly contaminated. Abdomen pelvis CT preliminary read demonstrating perforated sigmoid diverticulitis. She received 2 L lactated Ringer's, morphine, Dilaudid, and diphenhydramine, Reglan, Zosyn. Afterwards, her pain was no better. Upon examination the patient screams when trying to lie on her back for examination. She has guarding, exquisite tenderness to palpation and distended abdomen. She was placed on 2 L nasal cannula, I am told this was after she received multiple narcotic doses. The patient however does not complain of shortness of breath or chest pain. Denies cough. Review of Systems Review of Systems: All systems reviewed & are unremarkable except as noted in HPI and below (Subjective) Meds Home Medications and Allergies Home Medications ?Medication ?Instructions ?Recorded ?Confirmed ?Type amoxicillin 875 mg-potassium 1 tablet PO Q12H 7 days # 14 tabs 08/10/25 Rx clavulanate 125 mg tablet hydrocodone 5 mg-acetaminophen 325 1 tablet PO Q12H ND N pain #10 tabs 08/10/25 Rx mg tablet ondansetron 4 mg disintegrating 4 mg PO Q8H PRN nausea and 08/10/25 Rx tablet vomiting #14 tabs Allergies Allergy/AdvReac Type Severity Reaction Status Date / Time No Known Allergies Allergy Verified 08/11/25 22:35 Vital Signs Vital Signs - 24 hr 08/11/25 22:29 08/11/25 23:16 08/11/25 23:45 Temperature 97.7 F Pulse Rate 133 H 122 H 112 H Respiratory Rate 18 31 H 19 Blood Pressure 138/81 123/81 132/83 Pulse Oximetry 93 93 91 08/11/25 23:51 08/12/25 00:00 08/12/25 00:01 Temperature Pulse Rate 106 H 110 H 114 H Respiratory Rate 18 25 H 19 Blood Pressure 141/75 H 126/71 Pulse Oximetry 99 94 92 08/12/25 00:15 08/12/25 00:16 08/12/25 00:32 Temperature Pulse Rate 112 H 110 H 112 H Respiratory Rate 20 29 H 25 H Blood Pressure 110/85 Pulse Oximetry 94 89 L 97 08/12/25 00:45 08/12/25 00:46 08/12/25 01:10 Temperature Pulse Rate 112 H 110 H 114 H Respiratory Rate 25 H 22 H 17 Blood Pressure 138/67 Pulse Oximetry 95 96 84 L 08/12/25 01:12 08/12/25 01:15 08/12/25 01:16 Temperature Pulse Rate 116 H 112 H 111 H Respiratory Rate 33 H 19 24 H Blood Pressure 133/84 122/97 H Pulse Oximetry 83 L 86 L 90 08/12/25 01:30 08/12/25 01:31 08/12/25 01:45 Temperature Pulse Rate 108 H 109 H 117 H Respiratory Rate 19 28 H 22 H Blood Pressure 122/66 Pulse Oximetry 93 08/12/25 02:00 08/12/25 02:01 08/12/25 02:15 Temperature Pulse Rate 106 H 108 H 111 H Respiratory Rate 26 H 22 H 28 H Blood Pressure 135/86 Pulse Oximetry 95 94 95 08/12/25 02:16 08/12/25 02:30 08/12/25 03:01 Temperature Pulse Rate 110 H 124 H 121 H Respiratory Rate 28 H 27 H 29 H Blood Pressure 132/78 Pulse Oximetry 94 08/12/25 03:03 08/12/25 04:00 08/12/25 04:14 Temperature Pulse Rate 119 H 112 H 115 H Respiratory Rate 21 H 19 25 H Blood Pressure 135/85 122/86 Pulse Oximetry 93 94 94 08/12/25 04:16 08/12/25 04:30 08/12/25 04:31 Temperature Pulse Rate 107 H 109 H 108 H Respiratory Rate 20 23 H 20 Blood Pressure 120/84 120/79 Pulse Oximetry 93 96 96 08/12/25 04:46 08/12/25 05:01 08/12/25 05:16 Temperature Pulse Rate 107 H 112 H Respiratory Rate 27 H 24 H Blood Pressure 111/83 128/90 139/81 Pulse Oximetry 99 95 97 Exam Const: General: in distress HENMT: Mouth: Yes moist mucous membranes Eyes: Pupils: Equal, round and reactive pupils present Neck: Neck: supple Resp: Effort & Inspection: normal respiratory effort Other: Significant crackles bibasilar Cardio: Rate: tachycardic Rhythm: regular rhythm GI: Inspection: distended GI Palp: Yes Tenderness to palpation present (GI) and Yes Guarding due to palpation present (GI) : General: Yes bladder normal to palpation Neuro: Motor exam (neuro): 5/5 motor strength present throughout Extrem: General: no edema H&P: Results Labs Labs: Short CBC 08/11/25 Range/Units 22:41 WBC 31.6 H (4.5-10.0) K/mm3 Hgb 14.5 (12.0-15.0) g/dL Hct 42.8 (37.0-47.0) % Plt Count 311 (150-375) k/mm3 BMP 08/11/25 22:40 Sodium 131 L Potassium 3.9 Chloride 100 Carbon Dioxide 22 BUN 13 Creatinine 0.79 Glucose 138 H Calcium 8.8 Liver Function 08/11/25 Range/Units 22:40 Total Bilirubin 1.3 (0.2-1.3) mg/dL AST 39 H (14-36) U/L ALT 26 (6-35) U/L Alkaline Phosphatase 99 (38-126) U/L Albumin 3.7 (3.5-5.1) g/dL Urine 08/11/25 Range/Units 23:40 Urine Color Dark yellow (Yellow) Urine Appearance Cloudy H (Clear) Urine pH 5.5 (5.0-9.0) Ur Specific [place] 1.028 (1.001-1.035) Urine Protein 2+ H (Negative) mg/dL Urine Glucose (UA) Negative (Negative) mg/dL Assessment and Plan Assessment and plan (1) Perforation of sigmoid colon due to diverticulitis: Code(s): K57.20 - Diverticulitis of large intestine with perforation and abscess without bleeding Status: Acute (2) Sepsis: Code(s): A41.9 - Sepsis, unspecified organism Status: Acute Plan 60-year-old female, prior smoker, current vape addiction, presents with abdominal pain worse the day prior she was reportedly diagnosed with diverticulitis recently. She reports she drinks alcohol but cannot tell me how much. She is to focused on her abdominal pain. Initial evaluation in the ER revealed WBC 78023, hemoglobin 14.5, no bandemia but neutrophilia, INR PTT pending. Sodium 131, creatinine 0.79, glucose 138, lactic acid 1.2, AST 39, ALT 26, alkaline phosphatase 99, BNP pending, lipase 14. Urinalysis grossly contaminated. Abdomen pelvis CT preliminary read demonstrating perforated sigmoid diverticulitis. She received 2 L lactated Ringer's, morphine, Dilaudid, and diphenhydramine, Reglan, Zosyn. Afterwards, her pain was no better. Upon examination the patient screams when trying to lie on her back for examination. She has guarding, exquisite tenderness to palpation and distended abdomen. She was placed on 2 L nasal cannula, I am told this was after she received multiple narcotic doses. The patient however does not complain of shortness of breath or chest pain. Denies cough. ----- Perforated sigmoid diverticulitis with peritonitis, lactic acid is normal but she does have sepsis with tachycardia, tachypnea, leukocytosis. I requested General surgery to be contacted for time sensitive intervention. ER physician made a call out again to General surgery, anticipate surgical intervention. Patient is amenable. Type and screen, check INR/PTT, check magnesium. Hold fluids for now. She received 2 L lactated Ringer's and she has bibasilar crackles. Also received narcotics. Denies any history of pulmonary edema or heart failure. Will do a chest x-ray, check BNP. Continue oxygen per protocol. She is already on Zosyn. Continue that. Order incentive spirometer after s urgery. Considered surface echocardiogram. Trend leukocytosis, follow-up on blood cultures. Bed rest and NPO for now. Patient wishes to be full code. SCDs. Saline lock IV. high level MDM performed. Hospitalist MIPS Advance Care Plan I have confirmed that the patient's Advanced Care Plan is present, code status is documented, or surrogate decision maker is listed in patient medical record.: Yes Medication Reconciliation I have utilized all available resources to obtain, update and review the patients current medications (includes all prescriptions, OTC, herbals, cannabis, and nutritional supplements).: Yes
--- NOTE | 2025-08-12 05:46 | ED_ITS ---
HPI - Abdominal Pain General Chief Complaint: Abdominal Pain Stated Complaint: Diverticulitis-Abd pain, No BM x 4-5 days Time Seen by Provider: 08/11/25 23:49 History of Present Illness HPI narrative: Patient seen here yesterday for diverticulitis, however the pain has gotten much worse and is completely intolerable; initially was only on 1 side but now her entire abdomen hurts. Also having fevers. Related Data Allergies Allergy/AdvReac Type Severity Reaction Status Date / Time No Known Allergies Allergy Verified 08/11/25 22:35 Review of Systems 2 Review of Systems: All systems reviewed & are unremarkable except as noted in HPI and below Exam 2 Narrative: EXAMINATION OF ORGAN SYSTEMS/BODY AREAS: Constitutional: Vital signs per nursing GENERAL: Moaning continuously and crying in pain HEAD: Normal with no signs of head trauma. EYES: EOMI, conjunctiva normal ENT: Hearing grossly intact LUNGS: Nonlabored breathing. HEART: Tachycardic ABD: Very tender to palpation over the diffuse abdomen EXT: Normal range of motion SKIN: [No rashes or lesions.] NEURO: [Alert and oriented x 3. No gross focal sensory or strength deficits.] PSYCH: Normal affect Course Vital Signs Vital signs: Vital Signs Temperature 97.7 F 08/11/25 22:29 Pulse Rate 133 H 08/11/25 22:29 Respiratory Rate 18 08/11/25 22:29 Blood Pressure 138/81 08/11/25 22:29 Pulse Oximetry 93 08/11/25 22:29 Temperature 97.7 F 08/11/25 22:29 Pulse Rate 112 H 08/12/25 05:01 Respiratory Rate 24 H 08/12/25 05:01 Blood Pressure 139/81 08/12/25 05:16 Pulse Oximetry 97 08/12/25 05:16 MDM - Abdominal Pain MDM Narrative Medical decision making narrative: Electronic medical record was reviewed. Patient presented to the ED with complaint of [severe diffuse abdominal pain; diagnosed with diverticulitis yesterday]. Vitals notable for tachycardia. Physical exam revealed severe tenderness over entire abdomen, patient moaning continuously and crying in pain, heart rate 133. Based on the patient's history and physical exam, I am highly concerned for perforated diverticulitis. [IV access was established by nursing staff. Patient was given Dilaudid]. CBC, BMP, lipase, LFTs, bilirubin and alk phos were obtained. Labs were pertinent for white count of 31.6, patient started on antibiotics. [Decision was made to obtain a CT-abdomen to evaluate for acute abdominal process. I was called by radiologist due to concern for perforated diverticulitis.] Patient updated. Case discussed with General surgery he will be taking patient to operating room. Discussed with hospitalist. I did update patient's over the phone. Lab Data 08/11/25 22:41 08/11/25 22:40 Labs: Lab Results 08/11/25 08/11/25 08/11/25 Range/Units 22:40 22:41 23:40 WBC 31.6 H (4.5-10.0) K/mm3 RBC 4.60 (4.2-5.4) M/mm3 Hgb 14.5 (12.0-15.0) g/dL Hct 42.8 (37.0-47.0) % MCV 93.0 (80-100) fl MCH 31.5 (26-34) pg MCHC 33.9 (32-36) g/dl RDW 12.8 (11.5-14.5) % Plt Count 311 (150-375) k/mm3 MPV 9.1 (7.4-10.4) fl Immature Gran % (Auto) 1.7 H (0-0.5) % Neut % (Auto) 86.4 H (45.5-73.1) % Lymph % (Auto) 4.2 L (18.3-44.2) % [place] % (Auto) 7.4 (2.6-8.5) % Eos % (Auto) 0.0 (0-4.4) % Baso % (Auto) 0.3 (0.2-1.2) % Lymph # (Auto) 1.34 (0.9-3.2) K/mm3 [place] # (Auto) 2.3 H (0.1-0.6) K/mm3 Eos # (Auto) 0.0 (0-0.3) K/mm3 Baso # (Auto) 0.1 (0.0-0.1) K/mm3 Abs Immat Gran (auto) 0.54 H (0.00-0.031) K/mm3 Absolute Neuts (auto) 27.3 H (1.3-6.7) K/mm3 Absolute Nucleated RBC 0.000 (0.0-0.012) K/mm3 Nucleated RBC % 0.0 (0.0-0.2) % PT (11.1-14.7) Seconds INR Sodium 131 L (137-145) mmol/L Potassium 3.9 (3.4-5.0) mmol/L Chloride 100 (98-107) mmol/L Carbon Dioxide 22 (22-30) mmol/L Anion Gap 9 (4-12) mmol/L BUN 13 (7-17) mg/dL Creatinine 0.79 (0.7-1.0) mg/dL Estim Creat Clear Calc 56 ml/min Estimated GFR > 60 (59 - ) Glucose 138 H (65-110) mg/dL Lactic Acid (0.7-2.0) mmol/L Calcium 8.8 (8.4-10.2) mg/dL Total Bilirubin 1.3 (0.2-1.3) mg/dL AST 39 H (14-36) U/L ALT 26 (6-35) U/L Alkaline Phosphatase 99 (38-126) U/L NT-Pro-B Natriuret Pep Total Protein 6.8 (6.3-8.2) g/dL Albumin 3.7 (3.5-5.1) g/dL Lipase 14 L (23-300) U/L Urine Color Dark yellow (Yellow) Urine Appearance Cloudy H (Clear) Urine pH 5.5 (5.0-9.0) Ur Specific [place] 1.028 (1.001-1.035) Urine Protein 2+ H (Negative) mg/dL Urine Glucose (UA) Negative (Negative) mg/dL Urine Ketones 2+ H (Negative) mg/dL Ur Blood (Man) 2+ H (Negative) Urine Nitrate Negative (Negative) Urine Bilirubin 1+ H (Negative) Urine Urobilinogen 1.0 (<2.0) mg/dL Leukocyte Esterase Rfl Trace H (Negative) LESLIE/UL Urine RBC 21-50 H (0-2) /hpf Urine WBC 11-20 H (0-3) /hpf Ur Squamous Epith Cells Many H (Few) /hpf Urine Bacteria None seen /hpf Urine Casts 0-2 Blood Type Antibody Screen 08/12/25 08/12/25 08/12/25 Range/Units 03:23 05:28 05:29 WBC (4.5-10.0) K/mm3 RBC (4.2-5.4) M/mm3 Hgb (12.0-15.0) g/dL Hct (37.0-47.0) % MCV (80-100) fl MCH (26-34) pg MCHC (32-36) g/dl RDW (11.5-14.5) % Plt Count (150-375) k/mm3 MPV (7.4-10.4) fl Immature Gran % (Auto) (0-0.5) % Neut % (Auto) (45.5-73.1) % Lymph % (Auto) (18.3-44.2) % [place] % (Auto) (2.6-8.5) % Eos % (Auto) (0-4.4) % Baso % (Auto) (0.2-1.2) % Lymph # (Auto) (0.9-3.2) K/mm3 [place] # (Auto) (0.1-0.6) K/mm3 Eos # (Auto) (0-0.3) K/mm3 Baso # (Auto) (0.0-0.1) K/mm3 Abs Immat Gran (auto) (0.00-0.031) K/mm3 Absolute Neuts (auto) (1.3-6.7) K/mm3 Absolute Nucleated RBC (0.0-0.012) K/mm3 Nucleated RBC % (0.0-0.2) % PT 15.4 H (11.1-14.7) Seconds INR 1.2 Sodium (137-145) mmol/L Potassium (3.4-5.0) mmol/L Chloride (98-107) mmol/L Carbon Dioxide (22-30) mmol/L Anion Gap (4-12) mmol/L BUN (7-17) mg/dL Creatinine (0.7-1.0) mg/dL Estim Creat Clear Calc ml/min Estimated GFR (59 - ) Glucose (65-110) mg/dL Lactic Acid 1.2 (0.7-2.0) mmol/L Calcium (8.4-10.2) mg/dL Total Bilirubin (0.2-1.3) mg/dL AST (14-36) U/L ALT (6-35) U/L Alkaline Phosphatase (38-126) U/L NT-Pro-B Natriuret Pep Pending Total Protein (6.3-8.2) g/dL Albumin (3.5-5.1) g/dL Lipase (23-300) U/L Urine Color (Yellow) Urine Appearance (Clear) Urine pH (5.0-9.0) Ur Specific [place] (1.001-1.035) Urine Protein (Negative) mg/dL Urine Glucose (UA) (Negative) mg/dL Urine Ketones (Negative) mg/dL Ur Blood (Man) (Negative) Urine Nitrate (Negative) Urine Bilirubin (Negative) Urine Urobilinogen (<2.0) mg/dL Leukocyte Esterase Rfl (Negative) LESLIE/UL Urine RBC (0-2) /hpf Urine WBC (0-3) /hpf Ur Squamous Epith Cells (Few) /hpf Urine Bacteria /hpf Urine Casts Blood Type Pending Antibody Screen Pending Critical Care Time Critical Care Time Critical Care Time: Yes Total Critical Care Time: 31 Discharge Plan Discharge Clinical Impression: Perforation of sigmoid colon due to diverticulitis, Sepsis Patient Disposition: Still a Patient Condition: Serious
[2025-08-12 05:48] LABS: INR 1.2; Prothrombin Time 15.4 Seconds (11.1-14.7)
[2025-08-12 06:02] LABS: NT Pro B Type Natriuretic Pept 223 pg/mL (19.9-100)
--- NOTE | 2025-08-12 06:21 | PM.CNGS ---
Assessment and Plan Assessment and plan (1) Perforation of sigmoid colon due to diverticulitis: Code(s): K57.20 - Diverticulitis of large intestine with perforation and abscess without bleeding Status: Acute Assessment and Plan: exam consistent with peritonitis and intra-abdominal sepsis, IV antibiotics, NPO, OR for emergent exploration (2) Sepsis: Code(s): A41.9 - Sepsis, unspecified organism Status: Acute Assessment and Plan: secondary to above, IV antibiotics, OR for emergent exploration History of Present Illness Consult details Consult date: 08/12/25 Reason for consult: abdominal pain Requesting physician: Shanelle Fuller MD Narrative: The patient is a 60-year-old female presenting to the emergency department complaining of severe abdominal pain. Patient was actually seen in the emergency department yesterday with left lower quadrant abdominal pain and acute uncomplicated diverticulitis. The patient reports the symptoms have been worsening over the last week. The patient reports after being discharged from the hospital she had worsening pain. She reports the pain is now throughout the entirety of her abdomen and is 10/10. The patient reports no appetite and reports subjective fevers and chills at home. The patient reports she has had multiple episodes of uncomplicated diverticulitis in the past. Workup, including imaging, is significant for acute perforated diverticulitis. Review of Systems Review of Systems: All systems reviewed & are unremarkable except as noted in HPI and below PMFSH Comments PMH - diverticulitis, nicotine and ETOH abuse PSH - cholecystectomy SH - +ETOH, +tobacco FH - no CRC Meds Home Medications and Allergies Home Medications ?Medication ?Instructions ?Recorded ?Confirmed ?Type amoxicillin 875 mg-potassium 1 tablet PO Q12H 7 days #14 tabs 08/10/25 Rx clavulanate 125 mg tablet hydrocodone 5 mg-acetaminophen 325 1 tablet PO Q12H PRN pain #10 tabs 08/10/25 Rx mg tablet ondansetron 4 mg disintegrating 4 mg PO Q8H PRN nausea and 08/10/25 Rx tablet vomiting #14 tabs Allergies Allergy/AdvReac Type Severity Reaction Status Date / Time No Known Allergies Allergy Verified 08/11/25 22:35 Vital Signs Vital Signs - 24 hr 08/11/25 22:29 08/11/25 23:16 08/11/25 23:45 Temperature 36.5 C Pulse Rate 133 H 122 H 112 H Respiratory Rate 18 31 H 19 Blood Pressure 138/81 123/81 132/83 Pulse Oximetry 93 93 91 08/11/25 23:51 08/12/25 00:00 08/12/25 00:01 Temperature Pulse Rate 106 H 110 H 114 H Respiratory Rate 18 25 H 19 Blood Pressure 141/75 H 126/71 Pulse Oximetry 99 94 92 08/12/25 00:15 08/12/25 00:16 08/12/25 00:32 Temperature Pulse Rate 112 H 110 H 112 H Respiratory Rate 20 29 H 25 H Blood Pressure 110/85 Pulse Oximetry 94 89 L 97 08/12/25 00:45 08/12/25 00:46 08/12/25 01:10 Temperature Pulse Rate 112 H 110 H 114 H Respiratory Rate 25 H 22 H 17 Blood Pressure 138/67 Pulse Oximetry 95 96 84 L 08/12/25 01:12 08/12/25 01:15 08/12/25 01:16 Temperature Pulse Rate 116 H 112 H 111 H Respiratory Rate 33 H 19 24 H Blood Pressure 133/84 122/97 H Pulse Oximetry 83 L 86 L 90 08/12/25 01:30 08/12/25 01:31 08/12/25 01:45 Temperature Pulse Rate 108 H 109 H 117 H Respiratory Rate 19 28 H 22 H Blood Pressure 122/66 Pulse Oximetry 93 08/12/25 02:00 08/12/25 02:01 08/12/25 02:15 Temperature Pulse Rate 106 H 108 H 111 H Respiratory Rate 26 H 22 H 28 H Blood Pressure 135/86 Pulse Oximetry 95 94 95 08/12/25 02:16 08/12/25 02:30 08/12/25 03:01 Temperature Pulse Rate 110 H 124 H 121 H Respiratory Rate 28 H 27 H 29 H Blood Pressure 132/78 Pulse Oximetry 94 08/12/25 03:03 08/12/25 04:00 08/12/25 04:14 Temperature Pulse Rate 119 H 112 H 115 H Respiratory Rate 21 H 19 25 H Blood Pressure 135/85 122/86 Pulse Oximetry 93 94 94 08/12/25 04:16 08/12/25 04:30 08/12/25 04:31 Temperature Pulse Rate 107 H 109 H 108 H Respiratory Rate 20 23 H 20 Blood Pressure 120/84 120/79 Pulse Oximetry 93 96 96 08/12/25 04:46 08/12/25 05:01 08/12/25 05:16 Temperature Pulse Rate 107 H 112 H Respiratory Rate 27 H 24 H Blood Pressure 111/83 128/90 139/81 Pulse Oximetry 99 95 97 Exam Const: General: acute distress severe, ill appearing, uncomfortable and overweight HENMT: Head: normal to inspection, normocephalic and atraumatic Eyes: General: appearance normal, both eyes and all related structures Neck: Neck: normal visual inspection, full ROM and no lymphadenopathy Resp: Auscultation: diminished lung sounds Cardio: Rate: tachycardic Rhythm: regular rhythm GI: Inspection: normal to inspection, distended and obesity GI Palp: Yes abdominal tenderness, Yes Soft to palpation, Yes Tenderness to palpation present (GI), Yes Guarding due to palpation present (GI) and Yes Rigid due to palpation Skin: General skin exam: normal color and no rashes or lesions noted Neuro: General: patient oriented x3 and CN's II-XI intact bilaterally Extrem: General: normal to inspection and full ROM Results Labs 08/11/25 22:41 08/11/25 22:40 Labs: Abnormal lab results 08/11/25 08/11/25 08/11/25 Range/Units 22:40 22:41 23:40 WBC 31.6 H (4.5-10.0) K/mm3 Immature Gran % (Auto) 1.7 H (0-0.5) % Neut % (Auto) 86.4 H (45.5-73.1) % Lymph % (Auto) 4.2 L (18.3-44.2) % [place] # (Auto) 2.3 H (0.1-0.6) K/mm3 Abs Immat Gran (auto) 0.54 H (0.00-0.031) K/mm3 Absolute Neuts (auto) 27.3 H (1.3-6.7) K/mm3 PT (11.1-14.7) Seconds Sodium 131 L (137-145) mmol/L Glucose 138 H (65-110) mg/dL AST 39 H (14-36) U/L NT-Pro-B Natriuret Pep (19.9-100) pg/mL Lipase 14 L (23-300) U/L Urine Appearance Cloudy H (Clear) Urine Protein 2+ H (Negative) mg/dL Urine Ketones 2+ H (Negative) mg/dL Ur Blood (Man) 2+ H (Negative) Urine Bilirubin 1+ H (Negative) Leukocyte Esterase Rfl Trace H (Negative) LESLIE/UL Urine RBC 21-50 H (0-2) /hpf Urine WBC 11-20 H (0-3) /hpf Ur Squamous Epith Cells Many H (Few) /hpf 08/12/25 08/12/25 Range/Units 05:28 05:29 WBC (4.5-10.0) K/mm3 Immature Gran % (Auto) (0-0.5) % Neut % (Auto) (45.5-73.1) % Lymph % (Auto) (18.3-44.2) % [place] # (Auto) (0.1-0.6) K/mm3 Abs Immat Gran (auto) (0.00-0.031) K/mm3 Absolute Neuts (auto) (1.3-6.7) K/mm3 PT 15.4 H (11.1-14.7) Seconds Sodium (137-145) mmol/L Glucose (65-110) mg/dL AST (14-36) U/L NT-Pro-B Natriuret Pep 223 H (19.9-100) pg/mL Lipase (23-300) U/L Urine Appearance (Clear) Urine Protein (Negative) mg/dL Urine Ketones (Negative) mg/dL Ur Blood (Man) (Negative) Urine Bilirubin (Negative) Leukocyte Esterase Rfl (Negative) LESLIE/UL Urine RBC (0-2) /hpf Urine WBC (0-3) /hpf Ur Squamous Epith Cells (Few) /hpf Diabetes panel 08/11/25 Range/Units 22:40 Sodium 131 L (137-145) mmol/L Potassium 3.9 (3.4-5.0) mmol/L Chloride 100 (98-107) mmol/L Carbon Dioxide 22 (22-30) mmol/L BUN 13 (7-17) mg/dL Creatinine 0.79 (0.7-1.0) mg/dL Glucose 138 H (65-110) mg/dL Calcium 8.8 (8.4-10.2) mg/dL AST 39 H (14-36) U/L ALT 26 (6-35) U/L Alkaline Phosphatase 99 (38-126) U/L Total Protein 6.8 (6.3-8.2) g/dL Albumin 3.7 (3.5-5.1) g/dL Calcium panel 08/11/25 Range/Units 22:40 Calcium 8.8 (8.4-10.2) mg/dL Albumin 3.7 (3.5-5.1) g/dL Pituitary panel 08/11/25 Range/Units 22:40 Sodium 131 L (137-145) mmol/L Potassium 3.9 (3.4-5.0) mmol/L Chloride 100 (98-107) mmol/L Carbon Dioxide 22 (22-30) mmol/L BUN 13 (7-17) mg/dL Creatinine 0.79 (0.7-1.0) mg/dL Glucose 138 H (65-110) mg/dL Calcium 8.8 (8.4-10.2) mg/dL Adrenal panel 08/11/25 Range/Units 22:40 Sodium 131 L (137-145) mmol/L Potassium 3.9 (3.4-5.0) mmol/L Chloride 100 (98-107) mmol/L Carbon Dioxide 22 (22-30) mmol/L BUN 13 (7-17) mg/dL Creatinine 0.79 (0.7-1.0) mg/dL Glucose 138 H (65-110) mg/dL Calcium 8.8 (8.4-10.2) mg/dL Total Bilirubin 1.3 (0.2-1.3) mg/dL AST 39 H (14-36) U/L ALT 26 (6-35) U/L Alkaline Phosphatase 99 (38-126) U/L Total Protein 6.8 (6.3-8.2) g/dL Albumin 3.7 (3.5-5.1) g/dL All other labs normal. Imaging Abdomen CT scan report/results: image reviewed
--- NOTE | 2025-08-12 06:27 | WPDHPUPDATE1 ---
History and Physical Update Update Date/Time: 08/12/25 06:27 History and Physical has been reviewed, including an updated exam of the patient. There are NO changes in the patient's condition. Risks, benefits, and alternatives have been discussed and questions answered. Patient agrees to proceed with procedure. OR for exploratory laparotomy, possible bowel resection, possible ostomy
--- NOTE | 2025-08-12 06:47 | WPDANESEPPF ---
Anes - Initial Pre Proc Eval Procedure: Operation Date: 08/12/25 07:00 Proposed Procedures p Exploratory Laparotomy, Pos Bowel Resec - Maxine Wolfe MD Date/Time: 08/12/25 06:47 Surgeon: Shanelle Fuller MD Pre Op Diagnosis: perf diverticulitis Patient Data Age: 60 Gender: F Height: 1.52 m Weight: 70.5 kg Last Vital Signs Temp 36.5 C 08/11/25 22:29 Pulse 118 H 08/12/25 06:36 Resp 14 08/12/25 06:36 BP 147/93 H 08/12/25 06:36 Pulse Ox 93 08/12/25 06:36 O2 Del Method Nasal Cannula 08/12/25 06:36 O2 Flow Rate 2 08/12/25 06:36 Allergies Allergy/AdvReac Type Severity Reaction Status Date / Time No Known Allergies Allergy Verified 08/11/25 22:35 Home Medications ?Medication ?Instructions ?Recorded ?Confirmed ?Type amoxicillin 875 mg-potassium 1 tablet PO Q12H 7 days #14 tabs 08/10/25 Rx clavulanate 125 mg tablet hydrocodone 5 mg-acetaminophen 325 1 tablet PO Q12H PRN pain #10 tabs 08/10/25 Rx mg tablet ondansetron 4 mg disintegrating 4 mg PO Q8H PRN nausea and 08/10/25 Rx tablet vomiting #14 tabs Laboratory Tests 08/11/25 08/11/25 08/11/25 22:40 22:41 23:40 WBC 31.6 H K/mm3 (4.5-10.0) RBC 4.60 M/mm3 (4.2-5.4) Hgb 14.5 g/dL (12.0-15.0) Hct 42.8 % (37.0-47.0) MCV 93.0 fl (80-100) MCH 31.5 pg (26-34) MCHC 33.9 g/dl (32-36) RDW 12.8 % (11.5-14.5) Plt Count 311 k/mm3 (150-375) MPV 9.1 fl (7.4-10.4) Immature Gran % (Auto) 1.7 H % (0-0.5) Neut % (Auto) 86.4 H % (45.5-73.1) Lymph % (Auto) 4.2 L % (18.3-44.2) [place] % (Auto) 7.4 % (2.6-8.5) Eos % (Auto) 0.0 % (0-4.4) Baso % (Auto) 0.3 % (0.2-1.2) Lymph # (Auto) 1.34 K/mm3 (0.9-3.2) [place] # (Auto) 2.3 H K/mm3 (0.1-0.6) Eos # (Auto) 0.0 K/mm3 (0-0.3) Baso # (Auto) 0.1 K/mm3 (0.0-0.1) Abs Immat Gran (auto) 0.54 H K/mm3 (0.00-0.031) Absolute Neuts (auto) 27.3 H K/mm3 (1.3-6.7) Absolute Nucleated RBC 0.000 K/mm3 (0.0-0.012) Nucleated RBC % 0.0 % (0.0-0.2) PT INR Sodium 131 L mmol/L (137-145) Potassium 3.9 mmol/L (3.4-5.0) Chloride 100 mmol/L (98-107) Carbon Dioxide 22 mmol/L (22-30) Anion Gap 9 mmol/L (4-12) BUN 13 mg/dL (7-17) Creatinine 0.79 mg/dL (0.7-1.0) Estim Creat Clear Calc 56 ml/min Estimated GFR > 60 (59 - ) Glucose 138 H mg/dL (65-110) Lactic Acid Calcium 8.8 mg/dL (8.4-10.2) Total Bilirubin 1.3 mg/dL (0.2-1.3) AST 39 H U/L (14-36) ALT 26 U/L (6-35) Alkaline Phosphatase 99 U/L (38-126) NT-Pro-B Natriuret Pep Total Protein 6.8 g/dL (6.3-8.2) Albumin 3.7 g/dL (3.5-5.1) Lipase 14 L U/L (23-300) Urine Color Dark yellow (Yellow) Urine Appearance Cloudy H (Clear) Urine pH 5.5 (5.0-9.0) Ur Specific [place] 1.028 (1.001-1.035) Urine Protein 2+ H mg/dL (Negative) Urine Glucose (UA) Negative mg/dL (Negative) Urine Ketones 2+ H mg/dL (Negative) Ur Blood (Man) 2+ H (Negative) Urine Nitrate Negative (Negative) Urine Bilirubin 1+ H (Negative) Urine Urobilinogen 1.0 mg/dL (<2.0) Leukocyte Esterase Rfl Trace H LESLIE/UL (Negative) Urine RBC 21-50 H /hpf (0-2) Urine WBC 11-20 H /hpf (0-3) Ur Squamous Epith Cells Many H /hpf (Few) Urine Bacteria None seen /hpf Urine Casts 0-2 Blood Type Antibody Screen 08/12/25 08/12/25 08/12/25 03:23 05:28 05:29 WBC RBC Hgb Hct MCV MCH MCHC RDW Plt Count MPV Immature Gran % (Auto) Neut % (Auto) Lymph % (Auto) [place] % (Auto) Eos % (Auto) Baso % (Auto) Lymph # (Auto) [place] # (Auto) Eos # (Auto) Baso # (Auto) Abs Immat Gran (auto) Absolute Neuts (auto) Absolute Nucleated RBC Nucleated RBC % PT 15.4 H Seconds (11.1-14.7) INR 1.2 Sodium Potassium Chloride Carbon Dioxide Anion Gap BUN Creatinine Estim Creat Clear Calc Estimated GFR Glucose Lactic Acid 1.2 mmol/L (0.7-2.0) Calcium Total Bilirubin AST ALT Alkaline Phosphatase NT-Pro-B Natriuret Pep 223 H pg/mL (19.9-100) Total Protein Albumin Lipase Urine Color Urine Appearance Urine pH Ur Specific [place] Urine Protein Urine Glucose (UA) Urine Ketones Ur Blood (Man) Urine Nitrate Urine Bilirubin Urine Urobilinogen Leukocyte Esterase Rfl Urine RBC Urine WBC Ur Squamous Epith Cells Urine Bacteria Urine Casts Blood Type O Positive Antibody Screen Negative Patient hx anesthesia problems: none Family hx anesthesia problems: none Results Review: All pre-operative results and documents have been reviewed as part of the pre-operative evaluation. [facility] Past Medical History Medical History Perforation of sigmoid colon due to diverticulitis Sepsis Overweight Smoker ETOH abuse Surgical History Surgical History (Updated 08/12/25 @ 06:48 by Hipolito Leslie MD) Hx of tonsillectomy H/O laparoscopy Social History Social History (Updated 08/12/25 @ 06:49 by Hipolito Leslie MD) Smoking status: Current every day smoker Alcohol intake: current Alcohol use details: every day drinker Anes - Eval Final PreProcedure Day of Procedure 08/12/25 06:47 Patient weight: obese Heart: regular rate and rhythm Lungs: clear to auscultation Airway: Mallampati scale class II Neurological: alert and oriented Last oral intake: >/= 8 hours ASA classification: III Emergent: yes Anesthetic plan: proceed Anesthesia type and monitoring: general ETT and standard monitoring Results Review: All pre-operative results and documents have been reviewed as part of the pre-operative evaluation. Informed Consent: The patient's anesthetic plan and its attendant risks and benefits were discussed with the patient/family/POA. Questions were solicited and answers provided to the satisfaction of the patient/family/POA.
--- NOTE | 2025-08-12 07:21 | S_PTH ---
PATIENT: Nanci Linder LOC: [id number] U#:[id number] AGE/SX: 60/F ROOM: 344 RE08/12/[address]: Edna Andrade MD : [id number] BED: 01 DIS: 08/20/2025 SPEC #: [id number] RECD: 08/12/25 07:43 STATUS: MARLIN REQ #: [id number] TONY: 08/12/25 07:[address]: Maxine Wolfe DEPT: [facility] Surgical RECD BY: Shonda Reich ENTERED: 08/12/25 07:43 SP TYPE: Surgical OTHR DR: Shanelle Fuller MD [facility] Tissues: A - Colon Segment NonTumor Procedures: Hematoxylin and Eosin Stain Gross and Microscopic Level 5
[2025-08-12] MEDS: SOD HYALURONATE/CARBOXYMETHYLCELLULOSE 5X6 1 EACH TOPICAL (07:31)
--- NOTE | 2025-08-12 08:06 | P.OP_ITS ---
Procedure Note - Detailed Date of Procedure 08/12/25 Pre-op Diagnosis acute perforated diverticulitis, intra-abdominal sepsis Post-op Diagnosis Same Procedure Performed exploratory laparotomy, resection of perforated sigmoid diverticulitis, creation of end colostomy Surgeon Maxine Wolfe MD Anesthesia General and Local Indications 60-year-old female presenting to the emergency department with sepsis secondary to perforated diverticulitis Findings perforated sigmoid diverticulitis Description of Procedure The patient was taken to the operating room and placed in the supine position. After adequate induction of general anesthesia, the patient was prepped and draped in the normal sterile fashion. A time-out was then done to verify the patient's identity, as well as the procedure being performed. I began by making a generous lower midline incision. This was carried down into the peritoneal cavity. Once access was gained into the peritoneal cavity, a gush of free air was noted indicating perforation. There was also a copious amount of inflammatory, serous fluid. I then gained access into the pelvis. Stuck down in this area was a very inflamed area of sigmoid colon. There was noted to be some areas of small perforation. Of note, there was some minimal intra- abdominal succus. This was copiously washed out. I then and examined the rest of the abdomen which was noted to be largely unremarkable. At this point, I was able to free up this area of sigmoid colon out of the pelvis this was done by taking down the lateral attachments. The area was severely inflamed and distended. The proximal sigmoid colon did have diverticulosis, however no acute diverticulitis was noted. The distal sigmoid colon and upper rectum were noted to be inflamed but no area of perforation was noted. Given these findings, the decision was made to perform a Leslee's type procedure. There was also noted to be a large amount of stool burden within the colon. The distal sigmoid colon was then transected with a contour stapler. I then transected the proximal sigmoid colon with a 75 MIKE stapler. The mesenteric attachments to the perforated area was taken down with a LigaSure device. We stayed close to the colon given the large amount of inflammation in the area. The specimen was then completely detached and sent to pathology for further review. I then copiously irrigated the abdomen. The distal stump was marked with PDS suture x2. The distal stump was wrapped with a piece of Seprafilm. I then freed up the lateral attachments of the proximal sigmoid colon and descending colon to allow creation of a end colostomy. Once freed up, the colon easily reached an area in the left lower quadrant. A circumferential incision was made in the left lower quadrant for the ostomy. This was done at the area of the lateral rectus. I made a cruciate incision in the anterior fascia and the rectus was split in the direction of its fibers. Finally the posterior fascia was cut. I was able to get 2 fingerbreadths through this opening. The proximal sigmoid colon was then brought out through this left lower quadrant ostomy site. I then closed the fascia at the midline using looped 0 PDS suture x2. The skin was then closed with skin shannon. I then matured the left lower quadrant colostomy using interrupted 3-0 Vicryl sutures. Sterile dressing and ostomy appliance was then placed. The patient tolerated the procedure well. Was largely stable throughout the procedure. She will be extubated and sent to the recovery room in stable condition. Estimated Blood Loss 25 Pathology Yes Complications No immediate complications Condition Stable Disposition PACU [facility] Billing Surgery - Charge Forward: Surgery Billing
[2025-08-12] MEDS: LACTATED RINGERS 1,000 ML 30 ML IV CONT ×2 (08:09)
--- NOTE | 2025-08-12 08:40 | P.PNIM_ITS ---
Progress Note: A&P Assessment and Plan (1) Perforation of sigmoid colon due to diverticulitis: Code(s): K57.20 - Diverticulitis of large intestine with perforation and abscess without bleeding Status: Inactive (2) Sepsis: Code(s): A41.9 - Sepsis, unspecified organism Status: Inactive Plan 60-year-old female, prior smoker, current vape addiction, presents with abdominal pain worse the day prior she was reportedly diagnosed with diverticulitis recently. Initial evaluation in the ER revealed WBC 71609, hemoglobin 14.5, no bandemia but neutrophilia, INR at 1.2. Sodium 131, creatinine 0.79, glucose 138, lactic acid 1.2, AST 39, ALT 26, alkaline phosphatase 99, lipase 14. Normal lactate. BNP 223 Urinalysis grossly contaminated. Abdomen pelvis CT preliminary read demonstrating perforated sigmoid diverticulitis. She received 2 L lactated Ringer's, morphine, Dilaudid, and diphenhydramine, Reglan, Zosyn. Chest x-ray with worsening bibasilar atelectasis/airspace disease # Perforated sigmoid diverticulitis with peritonitis, lactic acid is normal but she does have sepsis with tachycardia, tachypnea, leukocytosis. General surgery consulted. Status post exploratory laparotomy resection of perforated sigmoid diverticulitis recent of end-colostomy. Continue IV Zosyn DVT prophylaxis Lovenox Code status full code Subjective Date/time seen: 08/12/25 08:40 Interval history: Patient seen after surgery. Patient sleepy from anesthesia. Able to answer questions. Reports abdomen is sore. Family at bedside and discussed with him. Review of Systems Review of Systems: All systems reviewed & are unremarkable except as noted in HPI and below (Subjective) Exam Narrative: GENERAL: The patient is well developed, not in acute distress HEENT: Nonicteric sclerae, PERRLA, EOMI. Oropharynx clear. Moist mucous membranes. Conjunctivae appear well perfused. CHEST: Chest wall is nontender. HEART: Regular rate and rhythm without murmur, rubs, or gallops LUNGS: Clear to auscultation bilaterally. no respiratory distress ABDOMEN: Soft, surgical dressing in place left-sided colostomy in situ hypoactive bowel sounds SKIN: No rash, no excessive bruising, petechiae, or purpura. NEUROLOGIC: Cranial nerves II-XII intact, alert and oriented x 3, no gross motor deficits EXTREMITIES: no edema, cyanosis or clubbing Objective Data Vital Signs Vital Signs: Vital Signs - 24 hr 08/11/25 22:29 08/11/25 23:16 08/11/25 23:45 Temperature 97.7 F Pulse Rate 133 H 122 H 112 H Respiratory Rate 18 31 H 19 Blood Pressure 138/81 123/81 132/83 Pulse Oximetry 93 93 91 Oxygen Delivery Oxygen Flow Rate 08/11/25 23:51 08/12/25 00:00 08/12/25 00:01 Temperature Pulse Rate 106 H 110 H 114 H Respiratory Rate 18 25 H 19 Blood Pressure 141/75 H 126/71 Pulse Oximetry 99 94 92 Oxygen Delivery Oxygen Flow Rate 08/12/25 00:15 08/12/25 00:16 08/12/25 00:32 Temperature Pulse Rate 112 H 110 H 112 H Respiratory Rate 20 29 H 25 H Blood Pressure 110/85 Pulse Oximetry 94 89 L 97 Oxygen Delivery Oxygen Flow Rate 08/12/25 00:45 08/12/25 00:46 08/12/25 01:10 Temperature Pulse Rate 112 H 110 H 114 H Respiratory Rate 25 H 22 H 17 Blood Pressure 138/67 Pulse Oximetry 95 96 84 L Oxygen Delivery Oxygen Flow Rate 08/12/25 01:12 08/12/25 01:15 08/12/25 01:16 Temperature Pulse Rate 116 H 112 H 111 H Respiratory Rate 33 H 19 24 H Blood Pressure 133/84 122/97 H Pulse Oximetry 83 L 86 L 90 Oxygen Delivery Oxygen Flow Rate 08/12/25 01:30 08/12/25 01:31 08/12/25 01:45 Temperature Pulse Rate 108 H 109 H 117 H Respiratory Rate 19 28 H 22 H Blood Pressure 122/66 Pulse Oximetry 93 Oxygen Delivery Oxygen Flow Rate 08/12/25 02:00 08/12/25 02:01 08/12/25 02:15 Temperature Pulse Rate 106 H 108 H 111 H Respiratory Rate 26 H 22 H 28 H Blood Pressure 135/86 Pulse Oximetry 95 94 95 Oxygen Delivery Oxygen Flow Rate 08/12/25 02:16 08/12/25 02:30 08/12/25 03:01 Temperature Pulse Rate 110 H 124 H 121 H Respiratory Rate 28 H 27 H 29 H Blood Pressure 132/78 Pulse Oximetry 94 Oxygen Delivery Oxygen Flow Rate 08/12/25 03:03 08/12/25 04:00 08/12/25 04:14 Temperature Pulse Rate 119 H 112 H 115 H Respiratory Rate 21 H 19 25 H Blood Pressure 135/85 122/86 Pulse Oximetry 93 94 94 Oxygen Delivery Oxygen Flow Rate 08/12/25 04:16 08/12/25 04:30 08/12/25 04:31 Temperature Pulse Rate 107 H 109 H 108 H Respiratory Rate 20 23 H 20 Blood Pressure 120/84 120/79 Pulse Oximetry 93 96 96 Oxygen Delivery Oxygen Flow Rate 08/12/25 04:46 08/12/25 05:01 08/12/25 05:16 Temperature Pulse Rate 107 H 112 H Respiratory Rate 27 H 24 H Blood Pressure 111/83 128/90 139/81 Pulse Oximetry 99 95 97 Oxygen Delivery Oxygen Flow Rate 08/12/25 06:36 Temperature Pulse Rate 118 H Respiratory Rate 14 Blood Pressure 147/93 H Pulse Oximetry 93 Oxygen Delivery Nasal Cannula Oxygen Flow Rate 2 Intake/Output Intake/Output: Intake & Output 08/09/25 08/10/25 08/11/25 08/12/25 23:59 23:59 23:59 23:59 Intake Total 2049 Balance 2049 Meds/Results Medications: Active Medications Generic Name Dose Route Start Last Admin Trade Name Freq PRN Reason Stop Dose Admin Fentanyl Citrate 25 mcg 08/12/25 06:49 Fentanyl Citrate Inj (*Crx) 100 Mcg/2 Ml Vial IV PUSH Q2M PRN Pain Hydromorphone HCl 0.5 mg 08/12/25 05:33 08/12/25 06:07 Hydromorphone Hcl Inj (*Crx) 1 Mg/Ml Syr IV PUSH 0.5 mg Q3HR PRN Administration severe pain 7-10 Piperacillin Sod/Tazobactam 100 mls @ 200 mls/hr 08/12/25 10:00 Sod 4.5 gm/ Sodium Chloride IVPB Q6H ARSLAN Lactated Ringer's 1,000 mls @ 30 mls/hr 08/12/25 06:50 Lr - Lactated Ringers Iv IV CONT .Q24H ARSLAN Lactated Ringer's 1,000 mls @ 30 mls/hr 08/12/25 06:50 Lr - Lactated Ringers Iv IV CONT .Q24H ARSLAN Ondansetron HCl 4 mg 08/12/25 06:49 Ondansetron Inj 4 Mg/2 Ml Vial IV PUSH ONCE PRN Nausea Radiology Results: ITS Impressions Chest X-Ray 08/12/25 05:58 IMPRESSION: 1. Worsening bibasilar atelectasis and/or airspace disease. Labs Labs: Laboratory Results - last 24 hr 08/11/25 08/11/25 08/11/25 22:40 22:41 23:40 WBC 31.6 H RBC 4.60 Hgb 14.5 Hct 42.8 MCV 93.0 MCH 31.5 MCHC 33.9 RDW 12.8 Plt Count 311 MPV 9.1 Immature Gran % (Auto) 1.7 H Neut % (Auto) 86.4 H Lymph % (Auto) 4.2 L [place] % (Auto) 7.4 Eos % (Auto) 0.0 Baso % (Auto) 0.3 Lymph # (Auto) 1.34 [place] # (Auto) 2.3 H Eos # (Auto) 0.0 Baso # (Auto) 0.1 Abs Immat Gran (auto) 0.54 H Absolute Neuts (auto) 27.3 H Absolute Nucleated RBC 0.000 Nucleated RBC % 0.0 PT INR Sodium 131 L Potassium 3.9 Chloride 100 Carbon Dioxide 22 Anion Gap 9 BUN 13 Creatinine 0.79 Estim Creat Clear Calc 56 Estimated GFR > 60 Glucose 138 H Lactic Acid Calcium 8.8 Total Bilirubin 1.3 AST 39 H ALT 26 Alkaline Phosphatase 99 NT-Pro-B Natriuret Pep Total Protein 6.8 Albumin 3.7 Lipase 14 L Urine Color Dark yellow Urine Appearance Cloudy H Urine pH 5.5 Ur Specific [place] 1.028 Urine Protein 2+ H Urine Glucose (UA) Negative Urine Ketones 2+ H Ur Blood (Man) 2+ H Urine Nitrate Negative Urine Bilirubin 1+ H Urine Urobilinogen 1.0 Leukocyte Esterase Rfl Trace H Urine RBC 21-50 H Urine WBC 11-20 H Ur Squamous Epith Cells Many H Urine Bacteria None seen Urine Casts 0-2 Blood Type Antibody Screen 08/12/25 08/12/25 08/12/25 03:23 05:28 05:29 WBC RBC Hgb Hct MCV MCH MCHC RDW Plt Count MPV Immature Gran % (Auto) Neut % (Auto) Lymph % (Auto) [place] % (Auto) Eos % (Auto) Baso % (Auto) Lymph # (Auto) [place] # (Auto) Eos # (Auto) Baso # (Auto) Abs Immat Gran (auto) Absolute Neuts (auto) Absolute Nucleated RBC Nucleated RBC % PT 15.4 H INR 1.2 Sodium Potassium Chloride Carbon Dioxide Anion Gap BUN Creatinine Estim Creat Clear Calc Estimated GFR Glucose Lactic Acid 1.2 Calcium Total Bilirubin AST ALT Alkaline Phosphatase NT-Pro-B Natriuret Pep 223 H Total Protein Albumin Lipase Urine Color Urine Appearance Urine pH Ur Specific [place] Urine Protein Urine Glucose (UA) Urine Ketones Ur Blood (Man) Urine Nitrate Urine Bilirubin Urine Urobilinogen Leukocyte Esterase Rfl Urine RBC Urine WBC Ur Squamous Epith Cells Urine Bacteria Urine Casts Blood Type O Positive Antibody Screen Negative
[2025-08-12] MEDS: fentaNYL CITRATE INJ (*CRX) 100 MCG/2 ML VIAL 25 MCG IV PUSH ×4 (08:48→09:17)
[2025-08-12 09:03] LABS: Hematocrit 43.0 % (37.0-47.0); Hemoglobin 13.8 g/dL (12.0-15.0); Immature Granulocyte Percent A 2.0 % (0-0.5); Lymphocytes Absolute Auto 1.03 K/mm3 (0.9-3.2); Mean Corpuscular HGB Conc 32.1 g/dl (32-36); Mean Corpuscular Hemoglobin 31.5 pg (26-34); Mean Corpuscular Volume 98.2 fl (80-100); Nucleated Red Blood Cells Absolute Auto 0.000 K/mm3 (0.0-0.012); Nucleated Red Blood Cells Perc 0.0 % (0.0-0.2); Platelet Count Result 294 k/mm3 (150-375); Red Blood Count 4.38 M/mm3 (4.2-5.4); White Blood Count 23.6 K/mm3 (4.5-10.0)
[2025-08-12 09:14] LABS: Alanine Aminotransferase 29 U/L (6-35); Albumin Level 3.2 g/dL (3.5-5.1); Alkaline Phosphatase 118 U/L (38-126); Anion Gap 7 mmol/L (4-12); Aspartate Amino Transferase 51 U/L (14-36); Bilirubin,Total 1.3 mg/dL (0.2-1.3); Blood Urea Nitrogen 12 mg/dL (7-17); Calcium 8.4 mg/dL (8.4-10.2); Carbon Dioxide 23 mmol/L (22-30); Chloride 101 mmol/L (98-107); Estimated CRCL calculation 49 ml/min; Estimated Glomerular Filt Rate > 60; Glucose 125 mg/dL (65-110); Magnesium 1.6 mg/dL (1.6-2.3); Potassium 3.9 mmol/L (3.4-5.0); Sodium 131 mmol/L (137-145); Total Protein 6.0 g/dL (6.3-8.2)
--- NOTE | 2025-08-12 09:47 | ADMGEN ---
This patient, Nanci Linder, was admitted to Medical Room 344-01. Patient/family oriented to hospital policies and general routines including ID bracelet, bed and alarms, visiting hours, pain management, procedures, bathroom and other care routines, personal items, smoking policy, room service/diet, and visiting hours. Information on how to activate the Rapid Response Team has been discussed. Patient/Family are encouraged to report perceived risks to care and to ask questions if they do not understand what they are told or what they should do.
[2025-08-12] MEDS: PIPERACILLIN/TAZOBACTAM SOD 4.5 GM in SODIUM CHLORIDE 0.9% IV 100 ML 200 ML IVPB ×3 (10:15→20:54)
[2025-08-12] MEDS: LACTATED RINGERS 1,000 ML 100 ML IV CONT ×2 (10:18→20:52)
[2025-08-12] MEDS: ENOXAPARIN 40 MG/0.4 ML SYRINGE SUB-Q (10:29)
[2025-08-12] MEDS: FAMOTIDINE 20 MG/2 ML VIAL IV PUSH ×2 (10:30→20:52)
[2025-08-12] MEDS: IBUPROFEN IV 800 MG/200 ML 800 MG/200 ML BAG 400 MG IVPB (21:01)
[2025-08-13 04:41] VITALS: BP 100/62; PULSE 86; RESP 18; TEMP 37; O2SAT 95
[2025-08-13] MEDS: LACTATED RINGERS 1,000 ML 100 ML IV CONT ×2 (04:50→21:43)
[2025-08-13] MEDS: PIPERACILLIN/TAZOBACTAM SOD 4.5 GM in SODIUM CHLORIDE 0.9% IV 100 ML 200 ML IVPB ×4 (04:50→21:43)
[2025-08-13 05:29] LABS: Hematocrit 32.0 % (37.0-47.0); Hemoglobin 10.0 g/dL (12.0-15.0); Immature Granulocyte Percent A 0.7 % (0-0.5); Lymphocytes Absolute Auto 0.58 K/mm3 (0.9-3.2); Mean Corpuscular HGB Conc 31.3 g/dl (32-36); Mean Corpuscular Hemoglobin 31.2 pg (26-34); Mean Corpuscular Volume 99.7 fl (80-100); Nucleated Red Blood Cells Absolute Auto 0.000 K/mm3 (0.0-0.012); Nucleated Red Blood Cells Perc 0.0 % (0.0-0.2); Platelet Count Result 221 k/mm3 (150-375); Red Blood Count 3.21 M/mm3 (4.2-5.4); White Blood Count 13.5 K/mm3 (4.5-10.0)
[2025-08-13 05:47] LABS: Alanine Aminotransferase 16 U/L (6-35); Albumin Level 2.2 g/dL (3.5-5.1); Alkaline Phosphatase 72 U/L (38-126); Anion Gap 3 mmol/L (4-12); Aspartate Amino Transferase 23 U/L (14-36); Bilirubin,Total 1.0 mg/dL (0.2-1.3); Blood Urea Nitrogen 18 mg/dL (7-17); Calcium 7.7 mg/dL (8.4-10.2); Carbon Dioxide 21 mmol/L (22-30); Chloride 106 mmol/L (98-107); Estimated CRCL calculation 55 ml/min; Estimated Glomerular Filt Rate > 60; Glucose 114 mg/dL (65-110); Magnesium 2.1 mg/dL (1.6-2.3); Potassium 4.0 mmol/L (3.4-5.0); Sodium 130 mmol/L (137-145); Total Protein 4.9 g/dL (6.3-8.2)
[2025-08-13 05:55] LABS: Procalcitonin 4.0 ng/mL
[2025-08-13] MEDS: HYDROmorphone HCL INJ (*CRX) 1 MG/ML SYR IV PUSH ×2 (06:32→17:14)
[2025-08-13 08:45] VITALS: O2SAT 95
[2025-08-13] MEDS: ENOXAPARIN 40 MG/0.4 ML SYRINGE SUB-Q (08:45)
[2025-08-13] MEDS: FAMOTIDINE 20 MG/2 ML VIAL IV PUSH ×2 (08:45→21:42)
[2025-08-13] MEDS: IBUPROFEN IV 800 MG/200 ML 800 MG/200 ML BAG 400 MG IVPB (09:55)
--- NOTE | 2025-08-13 11:18 | PM.PNGS ---
Progress Note: A&P Assessment and Plan (1) Perforated abdominal viscus: Code(s): R19.8 - Other specified symptoms and signs involving the digestive system and abdomen Status: Acute Assessment and Plan: doing well, continue routine postoperative care, await ostomy function, continue NG tube and bowel rest for now, continue IV antibiotics Subjective Subjective Date/Time Seen: 08/13/25 11:18 Interval history: feels better, incisional soreness Review of Systems Review of Systems: All systems reviewed & are unremarkable except as noted in HPI and below Exam Const: General: cooperative, comfortable and no acute distress Resp: Auscultation: clear to auscultation bilaterally Cardio: Rate: regular rate Rhythm: regular rhythm GI: Inspection: normal to inspection, non-distended and incision Other: ostomy viable, some sweat Objective Data Vital Signs Vital Signs: Vital Signs - 24 hr 08/12/25 12:04 08/12/25 14:00 08/12/25 14:34 Temperature 36.7 C 36.6 C Pulse Rate 105 H 109 H Respiratory Rate 18 18 Blood Pressure 109/76 118/76 Pulse Oximetry 91 91 91 Oxygen Delivery Nasal Cannula Oxygen Flow Rate 3 08/12/25 20:00 08/12/25 23:09 08/13/25 04:41 Temperature 36.6 C 37.0 C Pulse Rate 100 86 Respiratory Rate 16 18 Blood Pressure 136/80 100/62 Pulse Oximetry 92 94 95 Oxygen Delivery Nasal Cannula Oxygen Flow Rate 3 Intake/Output Intake/Output: Intake & Output 08/10/25 08/11/25 08/12/25 08/13/25 23:59 23:59 23:59 23:59 Intake Total 3850 896.7 Output Total 410 300 Balance 3440 596.7 Meds/Results Medications: Active Medications Generic Name Dose Route Start Last Admin Trade Name Freq PRN Reason Stop Dose Admin Cyclobenzaprine HCl 10 mg 08/13/25 11:00 Cyclobenzaprine Hcl 10 Mg Tablet PO Q8H PRN Muscle Spasm Enoxaparin Sodium 40 mg 08/12/25 09:31 08/13/25 08:45 Enoxaparin 40 Mg/0.4 Ml Syringe SUB-Q 40 mg DAILY ARSLAN Administration Famotidine 20 mg 08/12/25 09:31 08/13/25 08:45 Famotidine 20 Mg/2 Ml Vial IV PUSH 20 mg Q12HR ARSLAN Administration Hydromorphone HCl 1 mg 08/12/25 09:31 08/13/25 06:32 Hydromorphone Hcl Inj (*Crx) 1 Mg/Ml Syr IV PUSH 1 mg Q2H PRN Administration Breakthrough Pain Rated 7-10 or NPO Hydromorphone HCl 0.5 mg 08/12/25 09:31 Hydromorphone Hcl Inj (*Crx) 1 Mg/Ml Syr IV PUSH Q2H PRN Breakthrough Pain Rated 4-6 or NPO Piperacillin Sod/Tazobactam 100 mls @ 200 mls/hr 08/12/25 10:00 08/13/25 09:49 Sod 4.5 gm/ Sodium Chloride IVPB 200 mls/hr Q6H ARSLAN Administration Lactated Ringer's 1,000 mls @ 100 mls/hr 08/12/25 09:31 08/13/25 04:50 Lr - Lactated Ringers Iv IV CONT 100 mls/hr .Q10H ARSLAN Administration Ibuprofen 800 mg in 200 mls @ 400 mls/hr 08/12/25 09:31 08/13/25 09:55 Caldolor 800 Mg/200 Ml IVPB 400 mls/hr Q6H PRN Administration Breakthrough Pain Rated 1-3 or NPO Naloxone HCl 0.1 mg 08/12/25 09:31 Naloxone Hcl 0.4 Mg/Ml Vial IV PUSH Q2M PRN Opiate Reversal Ondansetron HCl 4 mg 08/12/25 09:31 Ondansetron Inj 4 Mg/2 Ml Vial IV PUSH Q4H PRN Nausea And Vomiting Radiology Results: ITS Impressions Chest X-Ray 08/12/25 05:58 IMPRESSION: 1. Worsening bibasilar atelectasis and/or airspace disease. Abdomen/Pelvis CT 08/12/25 08:51 IMPRESSION: 1. Perforated sigmoid diverticulitis. 2. Small volume of ascites. Labs Labs: Laboratory Results - last 24 hr 08/13/25 05:09 WBC 13.5 H RBC 3.21 L Hgb 10.0 L D Hct 32.0 L MCV 99.7 MCH 31.2 MCHC 31.3 L RDW 12.9 Plt Count 221 MPV 9.7 Immature Gran % (Auto) 0.7 H Neut % (Auto) 88.5 H Lymph % (Auto) 4.3 L [place] % (Auto) 6.1 Eos % (Auto) 0.1 Baso % (Auto) 0.3 Lymph # (Auto) 0.58 L [place] # (Auto) 0.8 H Eos # (Auto) 0.0 Baso # (Auto) 0.0 Abs Immat Gran (auto) 0.10 H Absolute Neuts (auto) 11.9 H Absolute Nucleated RBC 0.000 Nucleated RBC % 0.0 Sodium 130 L Potassium 4.0 Chloride 106 Carbon Dioxide 21 L Anion Gap 3 L BUN 18 H Creatinine 0.87 Estim Creat Clear Calc 55 Estimated GFR > 60 Glucose 114 H Calcium 7.7 L Magnesium 2.1 Total Bilirubin 1.0 AST 23 ALT 16 Alkaline Phosphatase 72 Total Protein 4.9 L Albumin 2.2 L Procalcitonin 4.0
[2025-08-13] MEDS: CYCLOBENZAPRINE HCL 10 MG TABLET PO (12:32)
[2025-08-13 14:00] VITALS: BP 103/64; PULSE 78; RESP 18; TEMP 36.7; O2SAT 96
--- NOTE | 2025-08-13 14:26 | PM.IMPN ---
Progress Note: A&P Assessment and Plan (1) Perforation of sigmoid colon due to diverticulitis: Code(s): K57.20 - Diverticulitis of large intestine with perforation and abscess without bleeding Status: Acute (2) Sepsis: Code(s): A41.9 - Sepsis, unspecified organism Status: Acute (3) Diverticulitis: Code(s): K57.92 - Diverticulitis of intestine, part unspecified, without perforation or abscess without bleeding Status: Acute (4) Peritonitis: Code(s): K65.9 - Peritonitis, unspecified Status: Acute Plan 60-year-old female, prior smoker, current vape addiction, presents with abdominal pain worse the day prior she was reportedly diagnosed with diverticulitis recently. Initial evaluation in the ER revealed WBC 00935, hemoglobin 14.5, no bandemia but neutrophilia, INR at 1.2. Sodium 131, creatinine 0.79, glucose 138, lactic acid 1.2, AST 39, ALT 26, alkaline phosphatase 99, lipase 14. Normal lactate. BNP 223 Urinalysis grossly contaminated. Abdomen pelvis CT preliminary read demonstrating perforated sigmoid diverticulitis. She received 2 L lactated Ringer's, morphine, Dilaudid, and diphenhydramine, Reglan, Zosyn. Chest x-ray with worsening bibasilar atelectasis/airspace disease # Perforated sigmoid diverticulitis with peritonitis, lactic acid is normal but she does have sepsis with tachycardia, tachypnea, leukocytosis. General surgery consulted. Status post exploratory laparotomy resection of perforated sigmoid diverticulitis recent of end-colostomy. Increase activity when able. Remove Shah once out of bed and more mobile. Waiting for bowel function to return. WBC ru. Continue IV Zosyn DVT prophylaxis Lovenox Code status full code Subjective Date/time seen: 08/13/25 14:26 Interval history: 60-year-old female, prior smoker, current vape addiction, presents with abdominal pain worse the day prior she was reportedly diagnosed with diverticulitis recently. Assuming care. Chart reviewed. Patient having abdominal cramps. She has not been out of bed. Complains of nausea but this is improved overall. Exam Narrative: AF 98.6 100/62 86 18 95% 2L GENERAL: No acute distress HEENT: NG tube secured CHEST: Clear anteriorly in the flanks HEART: Regular rate and rhythm ABDOMEN: Soft, surgical dressing in place left-sided colostomy in situ hypoactive bowel sounds -urinary catheter secured draining clear yellow urine. SKIN: Warm and dry NEUROLOGIC: Nonfocal EXTREMITIES: no edema Objective Data Vital Signs Vital Signs: Vital Signs - 24 hr 08/12/25 14:34 08/12/25 20:00 08/12/25 23:09 Temperature 98 F Pulse Rate 100 Respiratory Rate 16 Blood Pressure 136/80 Pulse Oximetry 91 92 94 Oxygen Delivery Nasal Cannula Nasal Cannula Oxygen Flow Rate 3 3 08/13/25 04:41 08/13/25 08:45 Temperature 98.6 F Pulse Rate 86 Respiratory Rate 18 Blood Pressure 100/62 Pulse Oximetry 95 95 Oxygen Delivery Nasal Cannula Oxygen Flow Rate 2 Intake/Output Intake/Output: Intake & Output 08/10/25 08/11/25 08/12/25 08/13/25 23:59 23:59 23:59 23:59 Intake Total 3850 1196.7 Output Total 410 300 Balance 3440 896.7 Meds/Results Medications: Active Medications Generic Name Dose Route Start Last Admin Trade Name Freq PRN Reason Stop Dose Admin Cyclobenzaprine HCl 10 mg 08/13/25 11:00 08/13/25 12:32 Cyclobenzaprine Hcl 10 Mg Tablet PO 10 mg Q8H PRN Administration Muscle Spasm Enoxaparin Sodium 40 mg 08/12/25 09:31 08/13/25 08:45 Enoxaparin 40 Mg/0.4 Ml Syringe SUB-Q 40 mg DAILY ARSLAN Administration Famotidine 20 mg 08/12/25 09:31 08/13/25 08:45 Famotidine 20 Mg/2 Ml Vial IV PUSH 20 mg Q12HR ARSLAN Administration Hydromorphone HCl 1 mg 08/12/25 09:31 08/13/25 06:32 Hydromorphone Hcl Inj (*Crx) 1 Mg/Ml Syr IV PUSH 1 mg Q2H PRN Administration Breakthrough Pain Rated 7-10 or NPO Hydromorphone HCl 0.5 mg 08/12/25 09:31 Hydromorphone Hcl Inj (*Crx) 1 Mg/Ml Syr IV PUSH Q2H PRN Breakthrough Pain Rated 4-6 or NPO Piperacillin Sod/Tazobactam 100 mls @ 200 mls/hr 08/12/25 10:00 08/13/25 10:19 Sod 4.5 gm/ Sodium Chloride IVPB Infused Q6H ARSLAN Infusion Lactated Ringer's 1,000 mls @ 100 mls/hr 08/12/25 09:31 08/13/25 04:50 Lr - Lactated Ringers Iv IV CONT 100 mls/hr .Q10H ARSLAN Administration Ibuprofen 800 mg in 200 mls @ 400 mls/hr 08/12/25 09:31 08/13/25 10:25 Caldolor 800 Mg/200 Ml IVPB Infused Q6H PRN Infusion Breakthrough Pain Rated 1-3 or NPO Naloxone HCl 0.1 mg 08/12/25 09:31 Naloxone Hcl 0.4 Mg/Ml Vial IV PUSH Q2M PRN Opiate Reversal Ondansetron HCl 4 mg 08/12/25 09:31 Ondansetron Inj 4 Mg/2 Ml Vial IV PUSH Q4H PRN Nausea And Vomiting Radiology Results: ITS Impressions Chest X-Ray 08/12/25 05:58 IMPRESSION: 1. Worsening bibasilar atelectasis and/or airspace disease. Abdomen/Pelvis CT 08/12/25 08:51 IMPRESSION: 1. Perforated sigmoid diverticulitis. 2. Small volume of ascites. Labs Labs: Laboratory Results - last 24 hr 08/13/25 05:09 WBC 13.5 H RBC 3.21 L Hgb 10.0 L D Hct 32.0 L MCV 99.7 MCH 31.2 MCHC 31.3 L RDW 12.9 Plt Count 221 MPV 9.7 Immature Gran % (Auto) 0.7 H Neut % (Auto) 88.5 H Lymph % (Auto) 4.3 L [place] % (Auto) 6.1 Eos % (Auto) 0.1 Baso % (Auto) 0.3 Lymph # (Auto) 0.58 L [place] # (Auto) 0.8 H Eos # (Auto) 0.0 Baso # (Auto) 0.0 Abs Immat Gran (auto) 0.10 H Absolute Neuts (auto) 11.9 H Absolute Nucleated RBC 0.000 Nucleated RBC % 0.0 Sodium 130 L Potassium 4.0 Chloride 106 Carbon Dioxide 21 L Anion Gap 3 L BUN 18 H Creatinine 0.87 Estim Creat Clear Calc 55 Estimated GFR > 60 Glucose 114 H Calcium 7.7 L Magnesium 2.1 Total Bilirubin 1.0 AST 23 ALT 16 Alkaline Phosphatase 72 Total Protein 4.9 L Albumin 2.2 L Procalcitonin 4.0
[2025-08-13 20:00] VITALS: O2SAT 94
[2025-08-13 20:05] VITALS: PULSE 101; O2SAT 94
[2025-08-13 22:00] VITALS: BP 114/78; PULSE 98; RESP 18; TEMP 36.6; O2SAT 95
[2025-08-14] MEDS: LACTATED RINGERS 1,000 ML 100 ML IV CONT ×3 (05:00→20:11)
[2025-08-14] MEDS: IBUPROFEN IV 800 MG/200 ML 800 MG/200 ML BAG 400 MG IVPB (05:00)
[2025-08-14] MEDS: PIPERACILLIN/TAZOBACTAM SOD 4.5 GM in SODIUM CHLORIDE 0.9% IV 100 ML 200 ML IVPB ×4 (05:00→21:19)
[2025-08-14 06:00] VITALS: BP 135/80; PULSE 98; RESP 20; TEMP 36.7; O2SAT 93
[2025-08-14 06:14] LABS: Hematocrit 31.8 % (37.0-47.0); Hemoglobin 10.2 g/dL (12.0-15.0); Mean Corpuscular HGB Conc 32.1 g/dl (32-36); Mean Corpuscular Hemoglobin 31.3 pg (26-34); Mean Corpuscular Volume 97.5 fl (80-100); Platelet Count Result 254 k/mm3 (150-375); Red Blood Count 3.26 M/mm3 (4.2-5.4); White Blood Count 12.9 K/mm3 (4.5-10.0)
[2025-08-14 06:37] LABS: Anion Gap 6 mmol/L (4-12); Blood Urea Nitrogen 15 mg/dL (7-17); Calcium 8.0 mg/dL (8.4-10.2); Carbon Dioxide 24 mmol/L (22-30); Chloride 106 mmol/L (98-107); Estimated CRCL calculation 60 ml/min; Estimated Glomerular Filt Rate > 60; Glucose 66 mg/dL (65-110); Potassium 3.6 mmol/L (3.4-5.0); Sodium 136 mmol/L (137-145)
[2025-08-14 08:40] VITALS: O2SAT 93
[2025-08-14] MEDS: ENOXAPARIN 40 MG/0.4 ML SYRINGE SUB-Q (08:41)
[2025-08-14] MEDS: FAMOTIDINE 20 MG/2 ML VIAL IV PUSH ×2 (08:41→20:04)
--- NOTE | 2025-08-14 09:15 | PM.PNGS ---
Progress Note: A&P Assessment and Plan (1) Perforation of sigmoid colon due to diverticulitis: Code(s): K57.20 - Diverticulitis of large intestine with perforation and abscess without bleeding Status: Acute Assessment and Plan: doing well, clamp and likely remove NG, start clears if NG out, OOB/IS Subjective Subjective Date/Time Seen: 08/14/25 09:15 Interval history: feels pretty good, +ostomy fxn Review of Systems Review of Systems: All systems reviewed & are unremarkable except as noted in HPI and below Exam Const: General: cooperative, comfortable and no acute distress Resp: Auscultation: clear to auscultation bilaterally Cardio: Rate: regular rate Rhythm: regular rhythm GI: Inspection: normal to inspection, distended and incision GI Palp: Yes abdominal tenderness and Yes Soft to palpation Other: incision C/D/I, ostomy - +fxn Objective Data Vital Signs Vital Signs: Vital Signs - 24 hr 08/13/25 14:00 08/13/25 20:00 08/13/25 20:05 Temperature 36.7 C Pulse Rate 78 101 H Respiratory Rate 18 Blood Pressure 103/64 Pulse Oximetry 96 94 94 Oxygen Delivery Nasal Cannula Nasal Cannula Oxygen Flow Rate 1 1 08/13/25 22:00 08/14/25 06:00 Temperature 36.6 C 36.7 C Pulse Rate 98 98 Respiratory Rate 18 20 Blood Pressure 114/78 135/80 Pulse Oximetry 95 93 Oxygen Delivery Oxygen Flow Rate Intake/Output Intake/Output: Intake & Output 08/11/25 08/12/25 08/13/25 08/14/25 23:59 23:59 23:59 23:59 Intake Total 3850 2396.7 728.3 Output Total 410 710 650 Balance 3440 1686.7 78.3 Meds/Results Medications: Active Medications Generic Name Dose Route Start Last Admin Trade Name Freq PRN Reason Stop Dose Admin Cyclobenzaprine HCl 10 mg 08/13/25 11:00 08/13/25 12:32 Cyclobenzaprine Hcl 10 Mg Tablet PO 10 mg Q8H PRN Administration Muscle Spasm Diphenhydramine HCl 25 mg 08/13/25 21:01 08/13/25 21:47 Diphenhydramine Hcl Inj 50 Mg/Ml Vial IV PUSH 25 mg HS PRN Administration Insomnia Enoxaparin Sodium 40 mg 08/12/25 09:31 08/14/25 08:41 Enoxaparin 40 Mg/0.4 Ml Syringe SUB-Q 40 mg DAILY ARSLAN Administration Famotidine 20 mg 08/12/25 09:31 08/14/25 08:41 Famotidine 20 Mg/2 Ml Vial IV PUSH 20 mg Q12HR ARSLAN Administration Hydromorphone HCl 1 mg 08/12/25 09:08/13/25 17:14 Hydromorphone Hcl Inj (*Crx) 1 Mg/Ml Syr IV PUSH 1 mg Q2H PRN Administration Breakthrough Pain Rated 7-10 or NPO Hydromorphone HCl 0.5 mg 08/12/25 09:31 Hydromorphone Hcl Inj (*Crx) 1 Mg/Ml Syr IV PUSH Q2H PRN Breakthrough Pain Rated 4-6 or NPO Piperacillin Sod/Tazobactam 100 mls @ 200 mls/hr 08/12/25 10:00 08/14/25 05:00 Sod 4.5 gm/ Sodium Chloride IVPB 200 mls/hr Q6H ARSLAN Administration Lactated Ringer's 1,000 mls @ 100 mls/hr 08/12/25 09:31 08/14/25 05:00 Lr - Lactated Ringers Iv IV CONT 100 mls/hr .Q10H ARSLAN Administration Ibuprofen 800 mg in 200 mls @ 400 mls/hr 08/12/25 09:31 08/14/25 05:00 Caldolor 800 Mg/200 Ml IVPB 400 mls/hr Q6H PRN Administration Breakthrough Pain Rated 1-3 or NPO Naloxone HCl 0.1 mg 08/12/25 09:31 Naloxone Hcl 0.4 Mg/Ml Vial IV PUSH Q2M PRN Opiate Reversal Ondansetron HCl 4 mg 08/12/25 09:31 Ondansetron Inj 4 Mg/2 Ml Vial IV PUSH Q4H PRN Nausea And Vomiting Phenol 1 spray 08/13/25 21:01 Phenol/Sod Pheno [place] Mg (*Bkc) MUCOUS MEM PRN PRN Sore Throat Radiology Results: ITS Impressions Chest X-Ray 08/12/25 05:58 IMPRESSION: 1. Worsening bibasilar atelectasis and/or airspace disease. Abdomen/Pelvis CT 08/12/25 08:51 IMPRESSION: 1. Perforated sigmoid diverticulitis. 2. Small volume of ascites. Labs Labs: Laboratory Results - last 24 hr 08/14/25 05:50 WBC 12.9 H RBC 3.26 L Hgb 10.2 L Hct 31.8 L MCV 97.5 MCH 31.3 MCHC 32.1 RDW 12.8 Plt Count 254 MPV 9.9 Sodium 136 L Potassium 3.6 Chloride 106 Carbon Dioxide 24 Anion Gap 6 BUN 15 Creatinine 0.79 Estim Creat Clear Calc 60 Estimated GFR > 60 Glucose 66 Calcium 8.0 L
[2025-08-14] MEDS: CYCLOBENZAPRINE HCL 10 MG TABLET PO ×2 (09:55→20:08)
--- NOTE | 2025-08-14 11:27 | P.PNIM_ITS ---
Progress Note: A&P Assessment and Plan (1) Perforation of sigmoid colon due to diverticulitis: Code(s): K57.20 - Diverticulitis of large intestine with perforation and abscess without bleeding Status: Acute (2) Sepsis: Code(s): A41.9 - Sepsis, unspecified organism Status: Acute (3) Diverticulitis: Code(s): K57.92 - Diverticulitis of intestine, part unspecified, without perforation or abscess without bleeding Status: Acute (4) Peritonitis: Code(s): K65.9 - Peritonitis, unspecified Status: Acute Plan 60-year-old female, prior smoker, current vape addiction, presents with abdominal pain worse the day prior she was reportedly diagnosed with diverticulitis recently. Initial evaluation in the ER revealed WBC 23652, hemoglobin 14.5, no bandemia but neutrophilia, INR at 1.2. Sodium 131, creatinine 0.79, glucose 138, lactic acid 1.2, AST 39, ALT 26, alkaline phosphatase 99, lipase 14. Normal lactate. BNP 223 Urinalysis grossly contaminated. Abdomen pelvis CT preliminary read demonstrating perforated sigmoid diverticulitis. She received 2 L lactated Ringer's, morphine, Dilaudid, and diphenhydramine, Reglan, Zosyn. Chest x-ray with worsening bibasilar atelectasis/airspace disease # Perforated sigmoid diverticulitis with peritonitis, lactic acid is normal but she does have sepsis with tachycardia, tachypnea, leukocytosis. General surgery consulted. Status post exploratory laparotomy resection of perforated sigmoid diverticulitis recent of end-colostomy on 08/12. Shah is out. Waiting for bowel function to return. WBC slightly better. BCx NGTD. Continue IV Zosyn. Increase activity DVT prophylaxis Lovenox Code status full code Subjective Date/time seen: 08/14/25 11:27 Interval history: 60-year-old female, prior smoker, current vape addiction, presents with abdominal pain worse the day prior she was reportedly diagnosed with diverticulitis recently. Shah was removed earlier this morning. She had voided by the time of this visit. No nausea or vomiting. Abdominal pain is tolerable. No chest pain or shortness of breath. Exam Narrative: AF 98.0 135/80 98 20 93% 1L Gen - NARD HEENT: NG tube secured Chest -lungs clear anteriorly in the flanks. CV - RRR S1/S2 Abd -soft. Midline incision well approximated with shannon in place. One small area of dehiscence noted distal incision site. Colostomy left lower quadrant with pink stoma and serous sanguinous fluid in bag - urinary catheter secured draining clear yellow urine. Ext - No pedal edema Neuro - Alert and appropriate Psych - Nml mood and affect Skin - Warm and dry Objective Data Vital Signs Vital Signs: Vital Signs - 24 hr 08/13/25 14:00 08/13/25 20:00 08/13/25 20:05 Temperature 98.1 F Pulse Rate 78 101 H Respiratory Rate 18 Blood Pressure 103/64 Pulse Oximetry 96 94 94 Oxygen Delivery Nasal Cannula Nasal Cannula Oxygen Flow Rate 1 1 08/13/25 22:00 08/14/25 06:00 08/14/25 08:40 Temperature 97.9 F 98.0 F Pulse Rate 98 98 Respiratory Rate 18 20 Blood Pressure 114/78 135/80 Pulse Oximetry 95 93 93 Oxygen Delivery Nasal Cannula Oxygen Flow Rate 1 Intake/Output Intake/Output: Intake & Output 08/11/25 08/12/25 08/13/25 08/14/25 23:59 23:59 23:59 23:59 Intake Total 3850 2396.7 1320.0 Output Total 410 710 650 Balance 3440 1686.7 670.0 Meds/Results Medications: Active Medications Generic Name Dose Route Start Last Admin Trade Name Freq PRN Reason Stop Dose Admin Cyclobenzaprine HCl 10 mg 08/13/25 11:00 08/14/25 09:55 Cyclobenzaprine Hcl 10 Mg Tablet PO 10 mg Q8H PRN Administration Muscle Spasm Diphenhydramine HCl 25 mg 08/13/25 21:01 08/13/25 21:47 Diphenhydramine Hcl Inj 50 Mg/Ml Vial IV PUSH 25 mg HS PRN Administration Insomnia Enoxaparin Sodium 40 mg 08/12/25 09:31 08/14/25 08:41 Enoxaparin 40 Mg/0.4 Ml Syringe SUB-Q 40 mg DAILY ARSLAN Administration Famotidine 20 mg 08/12/25 09:31 08/14/25 08:41 Famotidine 20 Mg/2 Ml Vial IV PUSH 20 mg Q12HR ARSLAN Administration Hydromorphone HCl 1 mg 08/12/25 09:08/13/25 17:14 Hydromorphone Hcl Inj (*Crx) 1 Mg/Ml Syr IV PUSH 1 mg Q2H PRN Administration Breakthrough Pain Rated 7-10 or NPO Hydromorphone HCl 0.5 mg 08/12/25 09:31 Hydromorphone Hcl Inj (*Crx) 1 Mg/Ml Syr IV PUSH Q2H PRN Breakthrough Pain Rated 4-6 or NPO Piperacillin Sod/Tazobactam 100 mls @ 200 mls/hr 08/12/25 10:00 08/14/25 09:52 Sod 4.5 gm/ Sodium Chloride IVPB 200 mls/hr Q6H ARSLAN Administration Lactated Ringer's 1,000 mls @ 100 mls/hr 08/12/25 09:31 08/14/25 09:55 Lr - Lactated Ringers Iv IV CONT 100 mls/hr .Q10H ARSLAN Administration Ibuprofen 800 mg in 200 mls @ 400 mls/hr 08/12/25 09:31 08/14/25 05:00 Caldolor 800 Mg/200 Ml IVPB 400 mls/hr Q6H PRN Administration Breakthrough Pain Rated 1-3 or NPO Naloxone HCl 0.1 mg 08/12/25 09:31 Naloxone Hcl 0.4 Mg/Ml Vial IV PUSH Q2M PRN Opiate Reversal Ondansetron HCl 4 mg 08/12/25 09:31 Ondansetron Inj 4 Mg/2 Ml Vial IV PUSH Q4H PRN Nausea And Vomiting Phenol 1 spray 08/13/25 21:01 Phenol/Sod Pheno [place] Mg (*Bkc) MUCOUS MEM PRN PRN Sore Throat Radiology Results: ITS Impressions Chest X-Ray 08/12/25 05:58 IMPRESSION: 1. Worsening bibasilar atelectasis and/or airspace disease. Abdomen/Pelvis CT 08/12/25 08:51 IMPRESSION: 1. Perforated sigmoid diverticulitis. 2. Small volume of ascites. Labs Labs: Laboratory Results - last 24 hr 08/14/25 05:50 WBC 12.9 H RBC 3.26 L Hgb 10.2 L Hct 31.8 L MCV 97.5 MCH 31.3 MCHC 32.1 RDW 12.8 Plt Count 254 MPV 9.9 Sodium 136 L Potassium 3.6 Chloride 106 Carbon Dioxide 24 Anion Gap 6 BUN 15 Creatinine 0.79 Estim Creat Clear Calc 60 Estimated GFR > 60 Glucose 66 Calcium 8.0 L
[2025-08-14 14:00] VITALS: BP 133/87; PULSE 92; RESP 18; TEMP 36.1; O2SAT 95
[2025-08-14 20:03] VITALS: BP 148/93; PULSE 98; RESP 20; TEMP 36.8; O2SAT 96
[2025-08-14] MEDS: HYDROmorphone HCL INJ (*CRX) 1 MG/ML SYR IV PUSH (20:05)
[2025-08-14 21:35] VITALS: O2SAT 96
[2025-08-15 01:50] VITALS: BP 139/88
[2025-08-15] MEDS: HYDROmorphone HCL INJ (*CRX) 1 MG/ML SYR IV PUSH ×2 (01:53→08:11)
[2025-08-15] MEDS: PIPERACILLIN/TAZOBACTAM SOD 4.5 GM in SODIUM CHLORIDE 0.9% IV 100 ML 200 ML IVPB ×4 (04:08→22:16)
[2025-08-15 05:01] VITALS: BP 133/74; PULSE 90; RESP 20; TEMP 36.8; O2SAT 96
--- NOTE | 2025-08-15 07:59 | P.PNGS_ITS ---
Progress Note: A&P Assessment and Plan (1) Perforation of sigmoid colon due to diverticulitis: Code(s): K57.20 - Diverticulitis of large intestine with perforation and abscess without bleeding Status: Acute Assessment and Plan: doing well overall, will advance diet, encourage OOB/IS Subjective Subjective Date/Time Seen: 08/15/25 07:59 Interval history: feels ok, c/o rectal pressure this morning, also dizziness when getting up Review of Systems Review of Systems: All systems reviewed & are unremarkable except as noted in HPI and below Exam Const: General: cooperative, no acute distress and uncomfortable Resp: Auscultation: clear to auscultation bilaterally Cardio: Rate: regular rate Rhythm: regular rhythm GI: Inspection: normal to inspection, distended and incision GI Palp: Yes abdominal tenderness and Yes Soft to palpation Other: ostomy - good fxn Objective Data Vital Signs Vital Signs: Vital Signs - 24 hr 08/14/25 08:40 08/14/25 14:00 08/14/25 20:00 Temperature 36.1 C L Pulse Rate 92 Respiratory Rate 18 Blood Pressure 133/87 Pulse Oximetry 93 95 Oxygen Delivery Nasal Cannula Room Air Oxygen Flow Rate 1 08/14/25 20:03 08/14/25 21:35 08/15/25 01:50 Temperature 36.8 C Pulse Rate 98 Respiratory Rate 20 Blood Pressure 148/93 H 139/88 Pulse Oximetry 96 96 Oxygen Delivery Room Air Oxygen Flow Rate 08/15/25 05:01 Temperature 36.8 C Pulse Rate 90 Respiratory Rate 20 Blood Pressure 133/74 Pulse Oximetry 96 Oxygen Delivery Oxygen Flow Rate Intake/Output Intake/Output: Intake & Output 08/12/25 08/13/25 08/14/25 08/15/25 23:59 23:59 23:59 23:59 Intake Total 3850 2396.7 2740.0 220 Output Total 410 710 700 Balance 3440 1686.7 2040.0 220 Meds/Results Medications: Active Medications Generic Name Dose Route Start Last Admin Trade Name Freq PRN Reason Stop Dose Admin Cyclobenzaprine HCl 10 mg 08/13/25 11:00 08/14/25 20:08 Cyclobenzaprine Hcl 10 Mg Tablet PO 10 mg Q8H PRN Administration Muscle Spasm Diphenhydramine HCl 25 mg 08/13/25 21:01 08/13/25 21:47 Diphenhydramine Hcl Inj 50 Mg/Ml Vial IV PUSH 25 mg HS PRN Administration Insomnia Enoxaparin Sodium 40 mg 08/12/25 09:31 08/14/25 08:41 Enoxaparin 40 Mg/0.4 Ml Syringe SUB-Q 40 mg DAILY ARSLAN Administration Famotidine 20 mg 08/12/25 09:31 08/14/25 20:04 Famotidine 20 Mg/2 Ml Vial IV PUSH 20 mg Q12HR ARSLAN Administration Hydromorphone HCl 1 mg 08/12/25 09:31 08/15/25 01:53 Hydromorphone Hcl Inj (*Crx) 1 Mg/Ml Syr IV PUSH 1 mg Q2H PRN Administration Breakthrough Pain Rated 7-10 or NPO Hydromorphone HCl 0.5 mg 08/12/25 09:31 Hydromorphone Hcl Inj (*Crx) 1 Mg/Ml Syr IV PUSH Q2H PRN Breakthrough Pain Rated 4-6 or NPO Piperacillin Sod/Tazobactam 100 mls @ 200 mls/hr 08/12/25 10:00 08/15/25 04:38 Sod 4.5 gm/ Sodium Chloride IVPB Infused Q6H ARSLAN Infusion Lactated Ringer's 1,000 mls @ 100 mls/hr 08/12/25 09:31 08/14/25 20:11 Lr - Lactated Ringers Iv IV CONT 100 mls/hr .Q10H ARSLAN Administration Ibuprofen 800 mg in 200 mls @ 400 mls/hr 08/12/25 09:31 08/14/25 05:00 Caldolor 800 Mg/200 Ml IVPB 400 mls/hr Q6H PRN Administration Breakthrough Pain Rated 1-3 or NPO Naloxone HCl 0.1 mg 08/12/25 09:31 Naloxone Hcl 0.4 Mg/Ml Vial IV PUSH Q2M PRN Opiate Reversal Ondansetron HCl 4 mg 08/12/25 09:31 Ondansetron Inj 4 Mg/2 Ml Vial IV PUSH Q4H PRN Nausea And Vomiting Phenol 1 spray 08/13/25 21:01 Phenol/Sod Pheno [place] Mg (*Bkc) MUCOUS MEM PRN PRN Sore Throat Radiology Results: ITS Impressions Chest X-Ray 08/12/25 05:58 IMPRESSION: 1. Worsening bibasilar atelectasis and/or airspace disease. Abdomen/Pelvis CT 08/12/25 08:51 IMPRESSION: 1. Perforated sigmoid diverticulitis. 2. Small volume of ascites.
[2025-08-15] MEDS: CYCLOBENZAPRINE HCL 10 MG TABLET PO ×2 (09:18→20:40)
[2025-08-15] MEDS: ENOXAPARIN 40 MG/0.4 ML SYRINGE SUB-Q (09:19)
[2025-08-15] MEDS: FAMOTIDINE 20 MG/2 ML VIAL IV PUSH ×2 (09:19→20:39)
[2025-08-15] MEDS: LACTATED RINGERS 1,000 ML 100 ML IV CONT ×2 (09:20→22:19)
[2025-08-15 14:00] VITALS: BP 146/80; PULSE 86; RESP 19; TEMP 36.4; O2SAT 95
--- NOTE | 2025-08-15 14:26 | PM.IMPN ---
Progress Note: A&P Assessment and Plan (1) Perforation of sigmoid colon due to diverticulitis: Code(s): K57.20 - Diverticulitis of large intestine with perforation and abscess without bleeding Status: Acute (2) Sepsis: Code(s): A41.9 - Sepsis, unspecified organism Status: Acute (3) Diverticulitis: Code(s): K57.92 - Diverticulitis of intestine, part unspecified, without perforation or abscess without bleeding Status: Acute (4) Peritonitis: Code(s): K65.9 - Peritonitis, unspecified Status: Acute Plan 60-year-old female, prior smoker, current vape addiction, presents with abdominal pain worse the day prior she was reportedly diagnosed with diverticulitis recently. Initial evaluation in the ER revealed WBC 08531, hemoglobin 14.5, no bandemia but neutrophilia, INR at 1.2. Sodium 131, creatinine 0.79, glucose 138, lactic acid 1.2, AST 39, ALT 26, alkaline phosphatase 99, lipase 14. Normal lactate. BNP 223 Urinalysis grossly contaminated. Abdomen pelvis CT preliminary read demonstrating perforated sigmoid diverticulitis. She received 2 L lactated Ringer's, morphine, Dilaudid, and diphenhydramine, Reglan, Zosyn. Chest x-ray with worsening bibasilar atelectasis/airspace disease Perforated sigmoid diverticulitis with peritonitis. Lactic acid is normal but she does have sepsis with tachycardia, tachypnea, leukocytosis. General surgery was consulted and she underwent exploratory laparotomy with resection of perforated sigmoid diverticulitis and end-colostomy on 08/12. Shah is out. NGT is out. No stool output yet. Tolerating clear liquids. Now up to the recliner. BCx NGTD. Waiting for bowel function to return. Continue IV Zosyn. Add PT/OT. DVT prophylaxis Lovenox Code status full code Subjective Date/time seen: 08/15/25 14:26 Interval history: 60-year-old female, prior smoker, current vape addiction, presents with abdominal pain worse the day prior she was reportedly diagnosed with diverticulitis recently. Patient complaining of lower abdominal fullness and pressure. Voiding normally and with urine incontinence. Urine incontinence is chronic. Pain is worse with activity. Tolerating clear liquids without nausea. She does feel that her bladder empties normally. NGT out Exam Narrative: AF 98.2 133/74 90 20 96% ra Gen - NARD Chest -lungs clear anteriorly and flanks CV - RRR S1/S2 Abd -soft. Midline incision well approximated with shannon in place. One small area of dehiscence noted distal incision site. No drainage from incision. Colostomy left lower quadrant with dusky stoma and serous sanguinous fluid in bag Ext - No pedal edema Neuro - Alert and appropriate Psych - Nml mood and affect Skin - Warm and dry Objective Data Vital Signs Vital Signs: Vital Signs - 24 hr 08/14/25 20:00 08/14/25 20:03 08/14/25 21:35 Temperature 98.2 F Pulse Rate 98 Respiratory Rate 20 Blood Pressure 148/93 H Pulse Oximetry 96 96 Oxygen Delivery Room Air Room Air 08/15/25 01:50 08/15/25 05:01 08/15/25 08:00 Temperature 98.2 F Pulse Rate 90 Respiratory Rate 20 Blood Pressure 139/88 133/74 Pulse Oximetry 96 Oxygen Delivery Room Air Intake/Output Intake/Output: Intake & Output 08/12/25 08/13/25 08/14/25 08/15/25 23:59 23:59 23:59 23:59 Intake Total 3850 2396.7 2740.0 1320 Output Total 410 710 700 Balance 3440 1686.7 2040.0 1320 Meds/Results Medications: Active Medications Generic Name Dose Route Start Last Admin Trade Name Freq PRN Reason Stop Dose Admin Cyclobenzaprine HCl 10 mg 08/13/25 11:00 08/15/25 09:18 Cyclobenzaprine Hcl 10 Mg Tablet PO 10 mg Q8H PRN Administration Muscle Spasm Diphenhydramine HCl 25 mg 08/13/25 21:01 08/13/25 21:47 Diphenhydramine Hcl Inj 50 Mg/Ml Vial IV PUSH 25 mg HS PRN Administration Insomnia Enoxaparin Sodium 40 mg 08/12/25 09:31 08/15/25 09:19 Enoxaparin 40 Mg/0.4 Ml Syringe SUB-Q 40 mg DAILY ARSLAN Administration Famotidine 20 mg 08/12/25 09:31 08/15/25 09:19 Famotidine 20 Mg/2 Ml Vial IV PUSH 20 mg Q12HR ARSLAN Administration Hydromorphone HCl 1 mg 08/12/25 09:31 08/15/25 08:11 Hydromorphone Hcl Inj (*Crx) 1 Mg/Ml Syr IV PUSH 1 mg Q2H PRN Administration Breakthrough Pain Rated 7-10 or NPO Hydromorphone HCl 0.5 mg 08/12/25 09:31 Hydromorphone Hcl Inj (*Crx) 1 Mg/Ml Syr IV PUSH Q2H PRN Breakthrough Pain Rated 4-6 or NPO Piperacillin Sod/Tazobactam 100 mls @ 200 mls/hr 08/12/25 10:00 08/15/25 10:00 Sod 4.5 gm/ Sodium Chloride IVPB Infused Q6H ARSLAN Infusion Lactated Ringer's 1,000 mls @ 100 mls/hr 08/12/25 09:31 08/15/25 09:20 Lr - Lactated Ringers Iv IV CONT 100 mls/hr .Q10H ARSLAN Administration Ibuprofen 800 mg in 200 mls @ 400 mls/hr 08/12/25 09:31 08/14/25 05:00 Caldolor 800 Mg/200 Ml IVPB 400 mls/hr Q6H PRN Administration Breakthrough Pain Rated 1-3 or NPO Naloxone HCl 0.1 mg 08/12/25 09:31 Naloxone Hcl 0.4 Mg/Ml Vial IV PUSH Q2M PRN Opiate Reversal Ondansetron HCl 4 mg 08/12/25 09:31 Ondansetron Inj 4 Mg/2 Ml Vial IV PUSH Q4H PRN Nausea And Vomiting Phenol 1 spray 08/13/25 21:01 Phenol/Sod Pheno [place] Mg (*Bkc) MUCOUS MEM PRN PRN Sore Throat Radiology Results: ITS Impressions Chest X-Ray 08/12/25 05:58 IMPRESSION: 1. Worsening bibasilar atelectasis and/or airspace disease. Abdomen/Pelvis CT 08/12/25 08:51 IMPRESSION: 1. Perforated sigmoid diverticulitis. 2. Small volume of ascites. Labs Labs: Laboratory Results - last 24 hr 08/15/25 12:39 POC Capillary Glucose 94
--- NOTE | 2025-08-15 15:05 | PCPTNOTE ---
Attempted PT evaluation, but pt with OT/in too much pain to continue with PT once OT was completed.
[2025-08-15] MEDS: HYDROmorphone HCL INJ (*CRX) 1 MG/ML SYR 0.5 MG IV PUSH (20:40)
[2025-08-15 22:00] VITALS: BP 155/89; PULSE 102; RESP 17; TEMP 37; O2SAT 93
[2025-08-16] MEDS: PIPERACILLIN/TAZOBACTAM SOD 4.5 GM in SODIUM CHLORIDE 0.9% IV 100 ML 200 ML IVPB ×4 (04:11→21:23)
[2025-08-16] MEDS: IBUPROFEN IV 800 MG/200 ML 800 MG/200 ML BAG 400 MG IVPB ×2 (04:14→13:51)
[2025-08-16 05:44] LABS: Hematocrit 32.8 % (37.0-47.0); Hemoglobin 10.9 g/dL (12.0-15.0); Immature Granulocyte Percent A 1.2 % (0-0.5); Lymphocytes Absolute Auto 1.42 K/mm3 (0.9-3.2); Mean Corpuscular HGB Conc 33.2 g/dl (32-36); Mean Corpuscular Hemoglobin 31.2 pg (26-34); Mean Corpuscular Volume 94.0 fl (80-100); Nucleated Red Blood Cells Absolute Auto 0.000 K/mm3 (0.0-0.012); Nucleated Red Blood Cells Perc 0.0 % (0.0-0.2); Platelet Count Result 357 k/mm3 (150-375); Red Blood Count 3.49 M/mm3 (4.2-5.4); White Blood Count 10.8 K/mm3 (4.5-10.0)
[2025-08-16 06:00] VITALS: BP 146/87; PULSE 80; RESP 16; TEMP 36.9; O2SAT 93
[2025-08-16 06:11] LABS: Alanine Aminotransferase 20 U/L (6-35); Albumin Level 2.5 g/dL (3.5-5.1); Alkaline Phosphatase 137 U/L (38-126); Anion Gap 3 mmol/L (4-12); Aspartate Amino Transferase 25 U/L (14-36); Bilirubin,Total 0.7 mg/dL (0.2-1.3); Blood Urea Nitrogen 4 mg/dL (7-17); Calcium 7.9 mg/dL (8.4-10.2); Carbon Dioxide 26 mmol/L (22-30); Chloride 106 mmol/L (98-107); Estimated CRCL calculation 73 ml/min; Estimated Glomerular Filt Rate > 60; Glucose 110 mg/dL (65-110); Potassium 3.0 mmol/L (3.4-5.0); Sodium 135 mmol/L (137-145); Total Protein 5.3 g/dL (6.3-8.2)
[2025-08-16 07:45] VITALS: O2SAT 95
[2025-08-16] MEDS: LACTATED RINGERS 1,000 ML 100 ML IV CONT (09:05)
[2025-08-16] MEDS: FAMOTIDINE 20 MG/2 ML VIAL IV PUSH ×2 (10:25→21:26)
[2025-08-16] MEDS: POTASSIUM CHLORIDE 20 MEQ PACKET (FOR LIQUID) 40 MEQ PO (10:26)
[2025-08-16] MEDS: ENOXAPARIN 40 MG/0.4 ML SYRINGE SUB-Q (10:26)
--- NOTE | 2025-08-16 12:19 | PM.PNGS ---
Progress Note: A&P Assessment and Plan (1) Perforation of sigmoid colon due to diverticulitis: Code(s): K57.20 - Diverticulitis of large intestine with perforation and abscess without bleeding Status: Acute Assessment and Plan: Advanced to full liquids today. Will stop IV fluids. Continue IV Zosyn. Increase activity. Subjective Subjective Date/Time Seen: 08/16/25 12:19 Interval history: Tolerating clear liquids. Pain controlled. Ostomy functioning. Exam GI: Inspection: non-distended, incision (Intact with shannon) and other (Ileostomy pink and functioning) GI Palp: Yes Soft to palpation, Yes Tenderness to palpation present (GI) (Incisional), No Guarding due to palpation present (GI) and No Rebound tenderness present Auscultation: normal bowel sounds Objective Data Vital Signs Vital Signs: Vital Signs - 24 hr 08/15/25 14:00 08/15/25 14:44 08/15/25 20:00 Temperature 97.6 F Pulse Rate 86 Respiratory Rate 19 Blood Pressure 146/80 H Pulse Oximetry 95 Oxygen Delivery Room Air Room Air 08/15/25 22:00 08/16/25 06:00 08/16/25 07:45 Temperature 98.6 F 98.4 F Pulse Rate 102 H 80 Respiratory Rate 17 16 Blood Pressure 155/89 H 146/87 H Pulse Oximetry 93 93 95 Oxygen Delivery Room Air Intake/Output Intake/Output: Intake & Output 08/13/25 08/14/25 08/15/25 08/16/25 23:59 23:59 23:59 23:59 Intake Total 2396.7 2940.0 3120 1740 Output Total 665 026 2635 Balance 1686.7 2240.0 3120 -360 Meds/Results Medications: Active Medications Generic Name Dose Route Start Last Admin Trade Name Freq PRN Reason Stop Dose Admin Cyclobenzaprine HCl 10 mg 08/13/25 11:00 08/15/25 20:40 Cyclobenzaprine Hcl 10 Mg Tablet PO 10 mg Q8H PRN Administration Muscle Spasm Diphenhydramine HCl 25 mg 08/13/25 21:01 08/13/25 21:47 Diphenhydramine Hcl Inj 50 Mg/Ml Vial IV PUSH 25 mg HS PRN Administration Insomnia Enoxaparin Sodium 40 mg 08/12/25 09:31 08/16/25 10:26 Enoxaparin 40 Mg/0.4 Ml Syringe SUB-Q 40 mg DAILY ARSLAN Administration Famotidine 20 mg 08/12/25 09:31 08/16/25 10:25 Famotidine 20 Mg/2 Ml Vial IV PUSH 20 mg Q12HR ARSLAN Administration Hydromorphone HCl 1 mg 08/12/25 09:31 08/15/25 08:11 Hydromorphone Hcl Inj (*Crx) 1 Mg/Ml Syr IV PUSH 1 mg Q2H PRN Administration Breakthrough Pain Rated 7-10 or NPO Hydromorphone HCl 0.5 mg 08/12/25 09:31 08/15/25 20:40 Hydromorphone Hcl Inj (*Crx) 1 Mg/Ml Syr IV PUSH 0.5 mg Q2H PRN Administration Breakthrough Pain Rated 4-6 or NPO Piperacillin Sod/Tazobactam 100 mls @ 200 mls/hr 08/12/25 10:00 08/16/25 10:25 Sod 4.5 gm/ Sodium Chloride IVPB 200 mls/hr Q6H ARSLAN Administration Ibuprofen 800 mg in 200 mls @ 400 mls/hr 08/12/25 09:31 08/16/25 04:14 Caldolor 800 Mg/200 Ml IVPB 400 mls/hr Q6H PRN Administration Breakthrough Pain Rated 1-3 or NPO Naloxone HCl 0.1 mg 08/12/25 09:31 Naloxone Hcl 0.4 Mg/Ml Vial IV PUSH Q2M PRN Opiate Reversal Ondansetron HCl 4 mg 08/12/25 09:31 Ondansetron Inj 4 Mg/2 Ml Vial IV PUSH Q4H PRN Nausea And Vomiting Phenol 1 spray 08/13/25 21:01 Phenol/Sod Pheno [place] Mg (*Bkc) MUCOUS MEM PRN PRN Sore Throat Radiology Results: ITS Impressions Chest X-Ray 08/12/25 05:58 IMPRESSION: 1. Worsening bibasilar atelectasis and/or airspace disease. Abdomen/Pelvis CT 08/12/25 08:51 IMPRESSION: 1. Perforated sigmoid diverticulitis. 2. Small volume of ascites. Labs Labs: Laboratory Results - last 24 hr 08/15/25 08/16/25 12:39 05:29 WBC 10.8 H RBC 3.49 L Hgb 10.9 L Hct 32.8 L MCV 94.0 MCH 31.2 MCHC 33.2 RDW 12.9 Plt Count 357 MPV 9.2 Immature Gran % (Auto) 1.2 H Neut % (Auto) 75.2 H Lymph % (Auto) 13.1 L [place] % (Auto) 8.6 H Eos % (Auto) 1.5 Baso % (Auto) 0.4 Lymph # (Auto) 1.42 [place] # (Auto) 0.9 H Eos # (Auto) 0.2 Baso # (Auto) 0.0 Abs Immat Gran (auto) 0.13 H Absolute Neuts (auto) 8.1 H Absolute Nucleated RBC 0.000 Nucleated RBC % 0.0 Sodium 135 L Potassium 3.0 L Chloride 106 Carbon Dioxide 26 Anion Gap 3 L BUN 4 L D Creatinine 0.64 L Estim Creat Clear Calc 73 Estimated GFR > 60 Glucose 110 POC Capillary Glucose 94 Calcium 7.9 L Total Bilirubin 0.7 AST 25 ALT 20 Alkaline Phosphatase 137 H Total Protein 5.3 L Albumin 2.5 L
[2025-08-16] MEDS: HYDROmorphone HCL INJ (*CRX) 1 MG/ML SYR 0.5 MG IV PUSH ×3 (13:52→22:38)
--- NOTE | 2025-08-16 15:56 | P.PNIM_ITS ---
Progress Note: A&P Assessment and Plan (1) Sepsis: Code(s): A41.9 - Sepsis, unspecified organism Status: Acute (2) Perforation of sigmoid colon due to diverticulitis: Code(s): K57.20 - Diverticulitis of large intestine with perforation and abscess without bleeding Status: Acute (3) Diverticulitis: Code(s): K57.92 - Diverticulitis of intestine, part unspecified, without perforation or abscess without bleeding Status: Acute (4) Peritonitis: Code(s): K65.9 - Peritonitis, unspecified Status: Acute Plan 60-year-old female, prior smoker, current vape addiction, presents with abdominal pain worse the day prior she was reportedly diagnosed with diverticulitis recently. WBC 31K with neutrophilia. Sodium 131, lactic acid 1.2 CT Abd/Pelvis showing perforated sigmoid diverticulitis and bibasilar atelectasis. CXR also with worsening bibasilar atelectasis. She received 2 L lactated Ringer's, morphine, Dilaudid, and diphenhydramine, Reglan, Zosyn. Perforated sigmoid diverticulitis with peritonitis. Lactic acid is normal but she does have sepsis with tachycardia, tachypnea, leukocytosis. General surgery was consulted and she underwent exploratory laparotomy with resection of perforated sigmoid diverticulitis and end-colostomy on 08/12. She tolerated the surgery very well. Shah is out. NGT is out. No stool output yet. Tolerating clear liquids. Increase activity. BCx NGTD. Waiting for bowel function to return. Continue IV Zosyn. Continue PT/OT. DVT prophylaxis Lovenox Code status full code Subjective Date/time seen: 08/16/25 15:56 Interval history: 60-year-old female, prior smoker, current vape addiction, presents with abdominal pain worse the day prior she was reportedly diagnosed with diverticulitis recently. Feeling better. Abd pain better. Tolerating clear liquid. No n/v. Exam Narrative: AF 98.4 146/87 80 16 95% ra Gen - NARD Chest -lungs clear anteriorly and flanks CV - RRR S1/S2 Abd -soft. Midline incision well approximated with shannon in place. One small area of dehiscence noted distal incision site. No drainage from incision. Colostomy left lower quadrant with serous sanguinous fluid in bag Ext - No pedal edema Neuro - Alert and appropriate Psych - Nml mood and affect Skin - Warm and dry Objective Data Vital Signs Vital Signs: Vital Signs - 24 hr 08/15/25 20:00 08/15/25 22:00 08/16/25 06:00 Temperature 98.6 F 98.4 F Pulse Rate 102 H 80 Respiratory Rate 17 16 Blood Pressure 155/89 H 146/87 H Pulse Oximetry 93 93 Oxygen Delivery Room Air 08/16/25 07:45 Temperature Pulse Rate Respiratory Rate Blood Pressure Pulse Oximetry 95 Oxygen Delivery Room Air Intake/Output Intake/Output: Intake & Output 08/13/25 08/14/25 08/15/25 08/16/25 23:59 23:59 23:59 23:59 Intake Total 2396.7 2940.0 3120 2300 Output Total 596 726 0858 Balance 1686.7 2240.0 3120 200 Meds/Results Medications: Active Medications Generic Name Dose Route Start Last Admin Trade Name Freq PRN Reason Stop Dose Admin Cyclobenzaprine HCl 10 mg 08/13/25 11:00 08/15/25 20:40 Cyclobenzaprine Hcl 10 Mg Tablet PO 10 mg Q8H PRN Administration Muscle Spasm Diphenhydramine HCl 25 mg 08/13/25 21:01 08/13/25 21:47 Diphenhydramine Hcl Inj 50 Mg/Ml Vial IV PUSH 25 mg HS PRN Administration Insomnia Enoxaparin Sodium 40 mg 08/12/25 09:31 08/16/25 10:26 Enoxaparin 40 Mg/0.4 Ml Syringe SUB-Q 40 mg DAILY ARSLAN Administration Famotidine 20 mg 08/12/25 09:31 08/16/25 10:25 Famotidine 20 Mg/2 Ml Vial IV PUSH 20 mg Q12HR ARSLAN Administration Hydromorphone HCl 1 mg 08/12/25 09:31 08/15/25 08:11 Hydromorphone Hcl Inj (*Crx) 1 Mg/Ml Syr IV PUSH 1 mg Q2H PRN Administration Breakthrough Pain Rated 7-10 or NPO Hydromorphone HCl 0.5 mg 08/12/25 09:31 08/16/25 13:52 Hydromorphone Hcl Inj (*Crx) 1 Mg/Ml Syr IV PUSH 0.5 mg Q2H PRN Administration Breakthrough Pain Rated 4-6 or NPO Piperacillin Sod/Tazobactam 100 mls @ 200 mls/hr 08/12/25 10:00 08/16/25 10:25 Sod 4.5 gm/ Sodium Chloride IVPB 200 mls/hr Q6H ARSLAN Administration Ibuprofen 800 mg in 200 mls @ 400 mls/hr 08/12/25 09:31 08/16/25 13:51 Caldolor 800 Mg/200 Ml IVPB 400 mls/hr Q6H PRN Administration Breakthrough Pain Rated 1-3 or NPO Naloxone HCl 0.1 mg 08/12/25 09:31 Naloxone Hcl 0.4 Mg/Ml Vial IV PUSH Q2M PRN Opiate Reversal Ondansetron HCl 4 mg 08/12/25 09:31 Ondansetron Inj 4 Mg/2 Ml Vial IV PUSH Q4H PRN Nausea And Vomiting Phenol 1 spray 08/13/25 21:01 Phenol/Sod Pheno [place] Mg (*Bkc) MUCOUS MEM PRN PRN Sore Throat Radiology Results: ITS Impressions Chest X-Ray 08/12/25 05:58 IMPRESSION: 1. Worsening bibasilar atelectasis and/or airspace disease. Abdomen/Pelvis CT 08/12/25 08:51 IMPRESSION: 1. Perforated sigmoid diverticulitis. 2. Small volume of ascites. Labs Labs: Laboratory Results - last 24 hr 08/16/25 05:29 WBC 10.8 H RBC 3.49 L Hgb 10.9 L Hct 32.8 L MCV 94.0 MCH 31.2 MCHC 33.2 RDW 12.9 Plt Count 357 MPV 9.2 Immature Gran % (Auto) 1.2 H Neut % (Auto) 75.2 H Lymph % (Auto) 13.1 L [place] % (Auto) 8.6 H Eos % (Auto) 1.5 Baso % (Auto) 0.4 Lymph # (Auto) 1.42 [place] # (Auto) 0.9 H Eos # (Auto) 0.2 Baso # (Auto) 0.0 Abs Immat Gran (auto) 0.13 H Absolute Neuts (auto) 8.1 H Absolute Nucleated RBC 0.000 Nucleated RBC % 0.0 Sodium 135 L Potassium 3.0 L Chloride 106 Carbon Dioxide 26 Anion Gap 3 L BUN 4 L D Creatinine 0.64 L Estim Creat Clear Calc 73 Estimated GFR > 60 Glucose 110 Calcium 7.9 L Total Bilirubin 0.7 AST 25 ALT 20 Alkaline Phosphatase 137 H Total Protein 5.3 L Albumin 2.5 L
[2025-08-16 15:58] VITALS: BP 147/96; PULSE 81; RESP 16; TEMP 36.2; O2SAT 96
[2025-08-16] MEDS: CYCLOBENZAPRINE HCL 10 MG TABLET PO (21:23)
[2025-08-16 21:40] VITALS: BP 150/91; PULSE 86; RESP 16; TEMP 36.6; O2SAT 97
[2025-08-17] VITALS (10 sets, daily range): BP systolic 150–165; BP diastolic 88–114; PULSE 81–111; RESP 16–18; TEMP 36.3–36.9; O2SAT 94–96
[2025-08-17] MEDS: HYDROmorphone HCL INJ (*CRX) 1 MG/ML SYR 0.5 MG IV PUSH ×2 (03:42→22:50)
[2025-08-17] MEDS: PIPERACILLIN/TAZOBACTAM SOD 4.5 GM in SODIUM CHLORIDE 0.9% IV 100 ML 200 ML IVPB ×4 (03:49→21:30)
[2025-08-17] MEDS: ALPRAZolam (*CRX) 0.25 MG TABLET PO (06:03)
[2025-08-17 06:17] LABS: Anion Gap 6 mmol/L (4-12); Blood Urea Nitrogen 6 mg/dL (7-17); Calcium 8.5 mg/dL (8.4-10.2); Carbon Dioxide 25 mmol/L (22-30); Chloride 106 mmol/L (98-107); Estimated CRCL calculation 63 ml/min; Estimated Glomerular Filt Rate > 60; Glucose 145 mg/dL (65-110); Magnesium 1.8 mg/dL (1.6-2.3); Potassium 3.5 mmol/L (3.4-5.0); Sodium 137 mmol/L (137-145)
--- NOTE | 2025-08-17 06:39 | ECG_ITS ---
Test Date: 2025-08-17 06:46:56 Measurements Intervals [place] Rate: 109 P: 42 KS: 150 QRS: 13 QRSD: 126 T: 32 QT: 377 QTc: 509 Interpretive Statements SINUS TACHYCARDIA RIGHT BUNDLE BRANCH BLOCK [120+ ms QRS DURATION, UPRIGHT V1, 40+ ms S IN I/aVL/V4/V5/V6] No previous ECG available for comparison Electronically Signed On 08-17-2025 10:19:13 CDT by Sidney Andrade M.D.
--- NOTE | 2025-08-17 07:32 | P.PNIM_ITS ---
Progress Note: A&P Assessment and Plan (1) Chest pain: Code(s): R07.9 - Chest pain, unspecified Status: Acute Assessment and Plan: Patient developed CP earlier this morning. BP around that time was elevated but unclear if CP is caused by elevated BP or in response to CP. EKG showing Rt BBB but otherwise no acute findings. Renal fxn panel unrevealing except glucose 145. Etiology includes: anxiety/panic attack, related to elevated BP, PE, AMI, alcohol w/d PE less likely since Rt BBB but no other EKG findings to suggest PE/strain. Also, no hypoxia, HoTN, tachycardia,, pleurtic component to CP. But consider CTA chest given her recent surgery and bedrest (despite lovenox) More concerned for AMI: check Troponin. Metoprolol IV x1 then oral metoprolol. Check BNP, CXR. Check Echo. Move to IMU if elevated Troponin. Consider Heparin drip. She appears anxious but able to be calmed possibly related to recent alprazolam dose. Alcohol w/d is possible but she has been here for 5 days so seems less likely. (2) Elevated blood pressure reading without diagnosis of hypertension: Code(s): R03.0 - Elevated blood-pressure reading, without diagnosis of hypertension Status: Acute Assessment and Plan: as above. (3) Sepsis: Code(s): A41.9 - Sepsis, unspecified organism Status: Acute Assessment and Plan: Patient recently diagnosed with diverticulitis. WBC 31K with neutrophilia. Lactic acid is normal but she does have sepsis with tachycardia, tachypnea, leukocytosis. CT Abd/Pelvis showing perforated sigmoid diverticulitis and bibasilar atelectasis. CXR also with worsening bibasilar atelectasis. Sepsis related to sigmoid perforation with peritonitis. Zosyn started. She received 2 L lactated Ringer's, morphine, Dilaudid, and diphenhydramine, Reglan, Zosyn. She underwent surgical repair. BCx NGTD. Sepsis symptoms resolving (4) Perforation of sigmoid colon due to diverticulitis: Code(s): K57.20 - Diverticulitis of large intestine with perforation and abscess without bleeding Status: Acute Assessment and Plan: General surgery was consulted and she underwent exploratory laparotomy with resection of perforated sigmoid diverticulitis and end-colostomy on 08/12. She tolerated the surgery very well. Shah is out. NGT is out. No stool output yet. Tolerating clear liquids. Increase activity. Waiting for bowel function to return. Continue IV Zosyn. Continue PT/OT. (5) Peritonitis: Code(s): K65.9 - Peritonitis, unspecified Status: Acute Assessment and Plan: treatment as above. (6) Diverticulitis: Code(s): K57.92 - Diverticulitis of intestine, part unspecified, without perforation or abscess without bleeding Status: Acute Assessment and Plan: s/p sigmoid resection. Plan DVT prophylaxis Lovenox Code status full code Subjective Date/time seen: 08/17/25 07:32 Interval history: 60-year-old female, prior smoker, current vape addiction, presents with abdominal pain worse the day prior she was reportedly diagnosed with diverticulitis recently. Patient was having insomnia and received IV benadryl last night. She slept until financial officer but had chest pain when she woke (not sure if pain woke her up). She received hydromorphone 0.5mg at 0342 and Zosyn was given 0349. BP was mildly elevated over night with SBP 140-150. At 0441, BP was 165/100 and hydralaine 10mg given at 0452. She became anxious and alprazolam given 0544. EKG performed and reviewed personally showing Rt BBB but no acute ST-T wave changes. She describes the chest pain as 'heavy and dull'. Nor palpable, pleurtic or positional. No radiation to the pain but complains of nausea and diaphoresis. No hx of CAD, HTN, or DM. No fmhx of early heart disease. She vapes. She has untreated HLD. She was told recently that her BP was 'a little high'. She drinks 16o of mariana mixed drink most days. Abd pain is present but tolerable. Exam Narrative: AF 98.5 159/114 81 18 94% ra Gen - NARD lying almost flat in bed Chest -lungs clear anteriorly and flanks CV - RRR S1/S2. No murmurs Abd -soft. Midline incision well approximated with shannon in place except for one small area of dehiscence noted distal incision site. No drainage from incision. Colostomy left lower quadrant with serous sanguinous fluid in bag. Referred pain to the LLQ. No rebound Ext - No pedal edema. Negative Homans. No cords Neuro - Alert and appropriate Psych - anxious Skin - Warm and dry Objective Data Vital Signs Vital Signs: Vital Signs - 24 hr 08/16/25 07:45 08/16/25 10:30 08/16/25 15:58 Temperature 97.2 F L Pulse Rate 81 Respiratory Rate 16 Blood Pressure 147/96 H Pulse Oximetry 95 96 Oxygen Delivery Room Air Room Air 08/16/25 20:00 08/16/25 21:40 08/17/25 04:41 Temperature 98 F 98.5 F Pulse Rate 86 81 Respiratory Rate 16 18 Blood Pressure 150/91 H 165/100 H Pulse Oximetry 97 94 Oxygen Delivery Room Air 08/17/25 05:34 Temperature Pulse Rate Respiratory Rate Blood Pressure 159/114 H Pulse Oximetry Oxygen Delivery Intake/Output Intake/Output: Intake & Output 08/14/25 08/15/25 08/16/25 08/17/25 23:59 23:59 23:59 23:59 Intake Total 2940.0 3120 3598 Output Total 700 2800 400 Balance 2240.0 3120 798 -400 Meds/Results Medications: Active Medications Generic Name Dose Route Start Last Admin Trade Name Freq PRN Reason Stop Dose Admin Cyclobenzaprine HCl 10 mg 08/13/25 11:00 08/16/25 21:23 Cyclobenzaprine Hcl 10 Mg Tablet PO 10 mg Q8H PRN Administration Muscle Spasm Diphenhydramine HCl 25 mg 08/13/25 21:01 08/16/25 21:32 Diphenhydramine Hcl Inj 50 Mg/Ml Vial IV PUSH 25 mg HS PRN Administration Insomnia Enoxaparin Sodium 40 mg 08/12/25 09:31 08/16/25 10:26 Enoxaparin 40 Mg/0.4 Ml Syringe SUB-Q 40 mg DAILY ARSLAN Administration Famotidine 20 mg 08/12/25 09:31 08/16/25 21:26 Famotidine 20 Mg/2 Ml Vial IV PUSH 20 mg Q12HR ARSLAN Administration Hydralazine HCl 10 mg 08/17/25 04:35 08/17/25 04:52 Hydralazine Hcl 20 Mg/Ml Vial IV PUSH 10 mg Q4H PRN Administration Blood Pressure - High Hydromorphone HCl 1 mg 08/12/25 09:31 08/15/25 08:11 Hydromorphone Hcl Inj (*Crx) 1 Mg/Ml Syr IV PUSH 1 mg Q2H PRN Administration Breakthrough Pain Rated 7-10 or NPO Hydromorphone HCl 0.5 mg 08/12/25 09:31 08/17/25 03:42 Hydromorphone Hcl Inj (*Crx) 1 Mg/Ml Syr IV PUSH 0.5 mg Q2H PRN Administration Breakthrough Pain Rated 4-6 or NPO Piperacillin Sod/Tazobactam 100 mls @ 200 mls/hr 08/12/25 10:00 08/17/25 03:49 Sod 4.5 gm/ Sodium Chloride IVPB 200 mls/hr Q6H ARSLAN Administration Ibuprofen 800 mg in 200 mls @ 400 mls/hr 08/12/25 09:31 08/16/25 14:21 Caldolor 800 Mg/200 Ml IVPB Infused Q6H PRN Infusion Breakthrough Pain Rated 1-3 or NPO Metoprolol Tartrate 5 mg 08/17/25 07:30 Metoprolol Tartrate Inj 5 Mg/5 Ml Vial IV PUSH 08/17/25 07:31 ONCE ONE Metoprolol Tartrate 25 mg 08/17/25 09:00 Metoprolol Tartrate 25 Mg Tablet PO Q12HR ARSLAN Naloxone HCl 0.1 mg 08/12/25 09:31 Naloxone Hcl 0.4 Mg/Ml Vial IV PUSH Q2M PRN Opiate Reversal Ondansetron HCl 4 mg 08/12/25 09:31 Ondansetron Inj 4 Mg/2 Ml Vial IV PUSH Q4H PRN Nausea And Vomiting Perflutren Lipid Microsphere 0 ml 08/17/25 07:30 Perflutren Lipid Microspheres 1.5 Ml Vial Diluted To 10 Ml Total Volume IV PUSH 08/20/25 07:30 ONCE PRN adequate visualization Protocol Phenol 1 spray 08/13/25 21:01 Phenol/Sod Pheno [place] Mg (*Bkc) MUCOUS MEM PRN PRN Sore Throat Radiology Results: ITS Impressions Chest X-Ray 08/12/25 05:58 IMPRESSION: 1. Worsening bibasilar atelectasis and/or airspace disease. Abdomen/Pelvis CT 08/12/25 08:51 IMPRESSION: 1. Perforated sigmoid diverticulitis. 2. Small volume of ascites. Labs Labs: Laboratory Results - last 24 hr 08/17/25 05:30 Sodium 137 Potassium 3.5 Chloride 106 Carbon Dioxide 25 Anion Gap 6 BUN 6 L Creatinine 0.74 Estim Creat Clear Calc 63 Estimated GFR > 60 Glucose 145 H Calcium 8.5 Magnesium 1.8
[2025-08-17 07:51] LABS: Cholesterol 189 mg/dL (0-200); HDL Direct 22 mg/dL; Triglycerides 238 mg/dL (<150)
[2025-08-17 08:00] LABS: Troponin I < 0.012 ng/mL (0.000-0.034)
[2025-08-17 08:09] LABS: Hematocrit 42.3 % (37.0-47.0); Hemoglobin 13.9 g/dL (12.0-15.0); Immature Granulocyte Percent A 2.5 % (0-0.5); Lymphocytes Absolute Auto 1.26 K/mm3 (0.9-3.2); Mean Corpuscular HGB Conc 32.9 g/dl (32-36); Mean Corpuscular Hemoglobin 30.6 pg (26-34); Mean Corpuscular Volume 93.2 fl (80-100); Nucleated Red Blood Cells Absolute Auto 0.000 K/mm3 (0.0-0.012); Nucleated Red Blood Cells Perc 0.0 % (0.0-0.2); Platelet Count Result 514 k/mm3 (150-375); Red Blood Count 4.54 M/mm3 (4.2-5.4); White Blood Count 14.1 K/mm3 (4.5-10.0)
[2025-08-17 08:34] LABS: NT Pro B Type Natriuretic Pept 617 pg/mL (19.9-100)
[2025-08-17] MEDS: FAMOTIDINE 20 MG/2 ML VIAL IV PUSH ×2 (08:37→21:31)
[2025-08-17] MEDS: ONDANSETRON INJ 4 MG/2 ML VIAL IV PUSH (08:37)
[2025-08-17] MEDS: METOPROLOL TARTRATE INJ 5 MG/5 ML VIAL IV PUSH (08:37)
[2025-08-17] MEDS: ENOXAPARIN 40 MG/0.4 ML SYRINGE SUB-Q (08:46)
[2025-08-17] MEDS: METOPROLOL TARTRATE 25 MG TABLET PO (10:49)
[2025-08-17] MEDS: ASPIRIN 81 MG CHEWABLE TABLET 324 MG PO (10:49)
[2025-08-17 11:02] LABS: Troponin I < 0.012 ng/mL (0.000-0.034)
--- NOTE | 2025-08-17 12:48 | P.PNGS_ITS ---
Progress Note: A&P Assessment and Plan (1) Perforation of sigmoid colon due to diverticulitis: Code(s): K57.20 - Diverticulitis of large intestine with perforation and abscess without bleeding Status: Acute Assessment and Plan: * Patient was tolerating liquids yesterday, but now having nausea and vomiting. X-ray showing possible bowel obstruction or ileus. Will get CT abdomen pelvis today. * Continue Zosyn. * Patient placed back to NPO and IV fluids restarted Subjective Subjective Date/Time Seen: 08/17/25 12:48 Interval history: Patient had increased abdominal pain with nausea and vomiting that started this morning. She was doing well yesterday and tolerating liquids. Abdominal x-ray ordered just recently and showed evidence of small-bowel obstruction. Exam GI: Inspection: distended and other (Ostomy patent with small amount of stool in bag) GI Palp: Yes Soft to palpation and Yes Tenderness to palpation present (GI) (Left lower quadrant and right lower quadrant) Objective Data Vital Signs Vital Signs: Vital Signs - 24 hr 08/16/25 15:58 08/16/25 20:00 08/16/25 21:40 Temperature 97.2 F L 98 F Pulse Rate 81 86 Respiratory Rate 16 16 Blood Pressure 147/96 H 150/91 H Pulse Oximetry 96 97 Oxygen Delivery Room Air 08/17/25 04:41 08/17/25 05:34 08/17/25 08:00 Temperature 98.5 F Pulse Rate 81 Respiratory Rate 18 Blood Pressure 165/100 H 159/114 H Pulse Oximetry 94 Oxygen Delivery Room Air 08/17/25 08:37 08/17/25 10:49 Temperature Pulse Rate 111 H 87 Respiratory Rate Blood Pressure Pulse Oximetry Oxygen Delivery Intake/Output Intake/Output: Intake & Output 08/14/25 08/15/25 08/16/25 08/17/25 23:59 23:59 23:59 23:59 Intake Total 2940.0 3120 3598 100 Output Total 700 2800 400 Balance 2240.0 3120 798 -300 Meds/Results Medications: Active Medications Generic Name Dose Route Start Last Admin Trade Name Freq PRN Reason Stop Dose Admin Cyclobenzaprine HCl 10 mg 08/13/25 11:00 08/16/25 21:23 Cyclobenzaprine Hcl 10 Mg Tablet PO 10 mg Q8H PRN Administration Muscle Spasm Enoxaparin Sodium 40 mg 08/12/25 09:31 08/17/25 08:46 Enoxaparin 40 Mg/0.4 Ml Syringe SUB-Q 40 mg DAILY ARSLAN Administration Famotidine 20 mg 08/12/25 09:31 08/17/25 08:37 Famotidine 20 Mg/2 Ml Vial IV PUSH 20 mg Q12HR ARSLAN Administration Hydralazine HCl 10 mg 08/17/25 04:35 08/17/25 04:52 Hydralazine Hcl 20 Mg/Ml Vial IV PUSH 10 mg Q4H PRN Administration Blood Pressure - High Hydromorphone HCl 1 mg 08/12/25 09:31 08/15/25 08:11 Hydromorphone Hcl Inj (*Crx) 1 Mg/Ml Syr IV PUSH 1 mg Q2H PRN Administration Breakthrough Pain Rated 7-10 or NPO Hydromorphone HCl 0.5 mg 08/12/25 09:31 08/17/25 03:42 Hydromorphone Hcl Inj (*Crx) 1 Mg/Ml Syr IV PUSH 0.5 mg Q2H PRN Administration Breakthrough Pain Rated 4-6 or NPO Piperacillin Sod/Tazobactam 100 mls @ 200 mls/hr 08/12/25 10:00 08/17/25 10:49 Sod 4.5 gm/ Sodium Chloride IVPB 200 mls/hr Q6H ARSLAN Administration Ibuprofen 800 mg in 200 mls @ 400 mls/hr 08/12/25 09:31 08/16/25 14:21 Caldolor 800 Mg/200 Ml IVPB Infused Q6H PRN Infusion Breakthrough Pain Rated 1-3 or NPO Potassium Chloride/Dextrose/Sod Cl 1,000 mls @ 125 mls/hr 08/17/25 12:50 Kcl 20 Meq/D5/0.45% Sod Chl IV CONT .Q8H ARSLAN Metoprolol Tartrate 25 mg 08/17/25 09:00 08/17/25 10:49 Metoprolol Tartrate 25 Mg Tablet PO 25 mg Q12HR ARSLAN Administration Naloxone HCl 0.1 mg 08/12/25 09:31 Naloxone Hcl 0.4 Mg/Ml Vial IV PUSH Q2M PRN Opiate Reversal Ondansetron HCl 4 mg 08/12/25 09:31 08/17/25 08:37 Ondansetron Inj 4 Mg/2 Ml Vial IV PUSH 4 mg Q4H PRN Administration Nausea And Vomiting Perflutren Lipid Microsphere 0 ml 08/17/25 07:30 Perflutren Lipid Microspheres 1.5 Ml Vial Diluted To 10 Ml Total Volume IV PUSH 08/20/25 07:30 ONCE PRN adequate visualization Protocol Phenol 1 spray 08/13/25 21:01 Phenol/Sod Pheno [place] Mg (*Bkc) MUCOUS MEM PRN PRN Sore Throat Radiology Results: ITS Impressions Abdomen/Pelvis CT 08/12/25 08:51 IMPRESSION: 1. Perforated sigmoid diverticulitis. 2. Small volume of ascites. Chest X-Ray 08/17/25 08:33 IMPRESSION: 1. Further worsening bibasilar atelectasis and/or airspace disease. Abdomen X-Ray 08/17/25 11:02 IMPRESSION: 1. Consistent with small bowel obstruction. Labs Labs: Laboratory Results - last 24 hr 08/17/25 08/17/25 08/17/25 05:30 07:34 10:24 WBC 14.1 H RBC 4.54 Hgb 13.9 D Hct 42.3 MCV 93.2 MCH 30.6 MCHC 32.9 RDW 13.1 Plt Count 514 H MPV 9.3 Immature Gran % (Auto) 2.5 H Neut % (Auto) 79.7 H Lymph % (Auto) 8.9 L [place] % (Auto) 6.7 Eos % (Auto) 1.6 Baso % (Auto) 0.6 Lymph # (Auto) 1.26 [place] # (Auto) 1.0 H Eos # (Auto) 0.2 Baso # (Auto) 0.1 Abs Immat Gran (auto) 0.36 H Absolute Neuts (auto) 11.2 H Absolute Nucleated RBC 0.000 Nucleated RBC % 0.0 Sodium 137 Potassium 3.5 Chloride 106 Carbon Dioxide 25 Anion Gap 6 BUN 6 L Creatinine 0.74 Estim Creat Clear Calc 63 Estimated GFR > 60 Glucose 145 H Calcium 8.5 Magnesium 1.8 Troponin I < 0.012 < 0.012 NT-Pro-B Natriuret Pep 617 H Triglycerides 238 H Cholesterol 189 LDL Cholesterol Direct 129 HDL Direct 22
--- NOTE | 2025-08-17 13:12 | PCPTNOTE ---
Pt out of room 1313 for imaging. Will return as able for PT evaluation
[2025-08-17] MEDS: KCL 20 MEQ/D5/0.45% SOD CHL 1,000 ML 125 ML IV CONT (14:13)
[2025-08-17 14:53] LABS: Troponin I < 0.012 ng/mL (0.000-0.034)
[2025-08-18] VITALS (11 sets, daily range): BP systolic 144–186; BP diastolic 88–115; PULSE 81–112; RESP 18–20; TEMP 36.1–36.9; O2SAT 95–96; BMI 34.6
--- NOTE | 2025-08-18 | ECHO_ITS ---
Patient Info Name: Nanci Linder Age: 60 years : 1965 Gender: Female Ht: 24 in Wt: 172 lbs BSA: 1.28 m2 HR: 90 bpm BP: 144 / 94 mmHg Technical Quality: Poor Exam Date: 08/18/2025 9:08 AM Patient Status: I Admit Date: 08/12/2025 Exam Type: CA echo dop color flow w con Complete two-dimensional, color flow and Doppler transthoracic echocardiogram is performed with contrast to opacify the left ventricle and to improve the deliniation of the left ventricle endocardial borders. Staff Referring Physician: Marcio Henry DO Improvement Lead: Solis Nichols III Attending Provider: Shanelle Fuller Contrast/Agitated Saline Contrast/Ag. Saline: Definity Amount: 2.00 ml Administered By: Solis Nichols III Existing IV Access: Yes IV Access Condition: patent with no signs of infiltration Reason for Poor Study: poor echocardiographic windows Summary 1. Left ventricular systolic function is normal, estimated at 50-55. 2. The left ventricular diastolic function is grade I diastolic dysfunction. 3. technically difficult study. Left Ventricle Left ventricular chamber dimension is normal. Left ventricular systolic function is normal, estimated at 50-55. There is no increased left ventricular wall thickness. Left ventricular septal wall motion is normal. The left ventricular diastolic function is grade I diastolic dysfunction. Right Ventricle Right ventricular chamber dimension is not well visualized. Left Atria Left atrial chamber dimension is normal. Right Atria Right atrial chamber dimension is normal. Aortic Valve The aortic valve is not well visualized. There is no aortic valve sclerosis. There is no aortic valve stenosis. There is no aortic valve regurgitation. Pulmonic Valve The pulmonic valve is normal. There is no pulmonic valve stenosis. There is no pulmonic regurgitation. Mitral Valve The mitral valve has normal leaflets. There is no mitral valve stenosis. There is mild mitral valve regurgitation. Tricuspid Valve The tricuspid valve leaflets are normal. There is no significant tricuspid valve stenosis. There is no tricuspid valve regurgitation. Pericardium/Pleural The pericardium appears normal. There is no pericardial effusion. Inferior Vena Cava Normal inferior vena cava with >50% collapse upon inspiration consistent with normal right atrial pressure, 5 mmHg. Aorta The aortic root size at the sinus of Valsalva is normal. The prox ascending aorta size is normal. Left Ventricular Outflow Tract Name Value Normal LVOT 2D LVOT Diameter 2.1 cm LVOT Doppler LVOT Peak Velocity 93 cm/s LVOT Peak Gradient 3 mmHg LVOT Mean Gradient 2 mmHg LVOT VTI 21 cm LVOT VTI/AV VTI Ratio 0.9 LVOT Stroke Volume 73 ml LVOT CO 6.4 l/min LVOT CI 5.0 l/min/m2 Mitral Valve Name Value Normal MV Doppler MV Peak Gradient 6 mmHg MV Mean Gradient 3 mmHg MV Area (Cont Eq VTI) 3.3 cm2 MV Diastolic Function MV E Peak Velocity 67 cm/s MV A Peak Velocity 115 cm/s MV E/A 0.6 MV Decel Time (PW) 232 ms MV Annular TDI MV E/e' (Septal) 8.8 MV E/e' (Lateral) 8.7 MV E/e' (Average) 8.7 Tricuspid Valve Name Value Normal Estimated PAP/RSVP RA Pressure 5 mmHg <=5 Aortic Valve Name Value Normal AV Doppler AV Peak Velocity 128 cm/s AV Peak Gradient 7 mmHg AV Mean Gradient 4 mmHg AV VTI 24 cm AV Area (Cont Eq VTI) 3.0 cm2 >=3.0 AV Area (Cont Eq Evaristo) 2.5 cm2 AV DI (Evaristo) 0.73 AV Regurgitation 2D LVOT Area 3.4 cm2 Ventricles Name Value Normal LV Dimensions 2D/MM LVOT Diameter 2.1 cm LV Fractional Shortening/Ejection Fraction 2D/MM LV Diastolic Volume (4C MOD) 47 ml LV EF (4C MOD) 50 % LV Diastolic Length (4C) 6.0 cm LV Systolic Length (4C) 5.2 cm LV Stroke Volume (4C MOD) 24 ml Atria Name Value Normal LA Dimensions LA Volume (4C A-L) 32 ml Report Signatures
[2025-08-18] MEDS: KCL 20 MEQ/D5/0.45% SOD CHL 1,000 ML 125 ML IV CONT (04:11)
[2025-08-18] MEDS: PIPERACILLIN/TAZOBACTAM SOD 4.5 GM in SODIUM CHLORIDE 0.9% IV 100 ML 200 ML IVPB ×3 (04:12→21:30)
[2025-08-18 05:41] LABS: Hematocrit 35.5 % (37.0-47.0); Hemoglobin 11.4 g/dL (12.0-15.0); Immature Granulocyte Percent A 2.7 % (0-0.5); Lymphocytes Absolute Auto 1.78 K/mm3 (0.9-3.2); Mean Corpuscular HGB Conc 32.1 g/dl (32-36); Mean Corpuscular Hemoglobin 30.8 pg (26-34); Mean Corpuscular Volume 95.9 fl (80-100); Nucleated Red Blood Cells Absolute Auto 0.000 K/mm3 (0.0-0.012); Nucleated Red Blood Cells Perc 0.0 % (0.0-0.2); Platelet Count Result 503 k/mm3 (150-375); Red Blood Count 3.70 M/mm3 (4.2-5.4); White Blood Count 12.1 K/mm3 (4.5-10.0)
[2025-08-18 06:11] LABS: Alanine Aminotransferase 31 U/L (6-35); Albumin Level 2.6 g/dL (3.5-5.1); Alkaline Phosphatase 98 U/L (38-126); Anion Gap 5 mmol/L (4-12); Aspartate Amino Transferase 41 U/L (14-36); Bilirubin,Total 0.3 mg/dL (0.2-1.3); Blood Urea Nitrogen 8 mg/dL (7-17); Calcium 8.0 mg/dL (8.4-10.2); Carbon Dioxide 24 mmol/L (22-30); Chloride 106 mmol/L (98-107); Estimated CRCL calculation 58 ml/min; Estimated Glomerular Filt Rate > 60; Glucose 140 mg/dL (65-110); Magnesium 1.9 mg/dL (1.6-2.3); Potassium 3.7 mmol/L (3.4-5.0); Sodium 135 mmol/L (137-145); Total Protein 5.3 g/dL (6.3-8.2)
[2025-08-18] MEDS: FAMOTIDINE 20 MG/2 ML VIAL IV PUSH ×2 (10:31→21:29)
[2025-08-18] MEDS: ENOXAPARIN 40 MG/0.4 ML SYRINGE SUB-Q (10:31)
[2025-08-18] MEDS: PERFLUTREN LIPID MICROSPHERES 1.5 ML VIAL DILUTED TO 10 ML TOTAL VOLUME IV PUSH (10:33)
--- NOTE | 2025-08-18 10:33 | IVDEFINITY ---
Prior to administration of IV Definity the patient was educated on the risks and benefits of the imaging enhancing agent including potential adverse side effects. The patient verbalized understanding. Allergies were verified. No exclusion criteria were identified and at least one of the following inclusion criteria were met: 1) physician request, 2) patient technically difficult to image (per the [place] [employer] guidelines of two or more segments not discernable within the apical view), or 3) questionable left ventricular function. ?
--- NOTE | 2025-08-18 11:55 | P.CDI_ITS ---
CDI Query Clarification Request BMI: 32.9 Nutritional Diagnostic Statement: Please refer to the comprehensive nutrition assessment for further information. If you agree with diagnosis of Moderate Protein Calorie Malnutrition related to inadequate oral intake in setting of acute disease or injury (SBO) as evidenced by < 75% of EER for > 7 days ; significant weight loss of 5% (8 ibs) in 1 week. Please specify severity if known: * Mild * Moderate * Severe * Other/Unknown
--- NOTE | 2025-08-18 13:19 | PM.IMPN ---
Progress Note: A&P Assessment and Plan (1) Chest pain: Code(s): R07.9 - Chest pain, unspecified Status: Acute Assessment and Plan: Patient developed CP earlier yesterday morning. BP around that time was elevated but unclear if CP is caused by elevated BP or in response to CP. EKG showing Rt BBB but otherwise no acute findings. Renal fxn panel unrevealing except glucose 145. CXR showing worsening bibasilar atelectasis. Troponin negative x3. BNP 617. Consider left diaphragmatic irritation causing referred pain. Follow on tele. (2) Elevated blood pressure reading without diagnosis of hypertension: Code(s): R03.0 - Elevated blood-pressure reading, without diagnosis of hypertension Status: Acute Assessment and Plan: Blood pressure elevated again related to pain. She is fluid positive over 10 L. Lasix x1. Monitor for now. (3) Sepsis: Code(s): A41.9 - Sepsis, unspecified organism Status: Acute Assessment and Plan: Patient recently diagnosed with diverticulitis. WBC 31K with neutrophilia. Lactic acid is normal but she does have sepsis with tachycardia, tachypnea, leukocytosis. CT Abd/Pelvis showing perforated sigmoid diverticulitis and bibasilar atelectasis. CXR also with worsening bibasilar atelectasis. Sepsis related to sigmoid perforation with peritonitis. Zosyn started. She received 2 L lactated Ringer's, morphine, Dilaudid, and diphenhydramine, Reglan, Zosyn. She underwent surgical repair. BCx NGTD. Sepsis symptoms resolving (4) Perforation of sigmoid colon due to diverticulitis: Code(s): K57.20 - Diverticulitis of large intestine with perforation and abscess without bleeding Status: Acute Assessment and Plan: General surgery was consulted and she underwent exploratory laparotomy with resection of perforated sigmoid diverticulitis and end-colostomy on 08/12. She tolerated the surgery very well. Shah is out. NGT was out. She developed abd distention and n/v on 08/17. CT Abd/Pelvis showing small effusions with dependent atelectasis, dilated loops of SB with transition point LLL, moderate ascites but no free air. Increase activity. Bowel function has returned but with recurrent ileus. Continue IV Zosyn. Continue PT/OT. TPN started. (5) Peritonitis: Code(s): K65.9 - Peritonitis, unspecified Status: Acute Assessment and Plan: treatment as above. (6) Diverticulitis: Code(s): K57.92 - Diverticulitis of intestine, part unspecified, without perforation or abscess without bleeding Status: Acute Assessment and Plan: s/p sigmoid resection. (7) Ileus: Code(s): K56.7 - Ileus, unspecified Status: Acute Assessment and Plan: As above. Serial xray and exams. Stool noted in colostomy now. Follow Plan DVT prophylaxis Lovenox Code status full code Subjective Date/time seen: 08/18/25 13:19 Interval history: 60-year-old female, prior smoker, current vape addiction, presents with abdominal pain worse the day prior she was reportedly diagnosed with diverticulitis recently. No longer having chest pain. No nausea or vomiting. NG tube had to be replaced for recurrent ileus. She denies shortness of breath. Abdominal pain is better. She actually feels hungry. Exam Narrative: AF 98.4 144/94 87 16 95% ra Gen - NARD HEENT -NG tube secured with light brown fluid in the tubing. Chest -lungs clear anteriorly and flanks CV - RRR S1/S2. Telemetry showing no significant dysrhythmias Abd -soft. Midline incision well approximated with shannon in place except for one small area of dehiscence noted distal incision site. No drainage from incision. Colostomy left lower quadrant with light brown stool in bag. Ext - No pedal edema. Neuro - Alert and appropriate Psych -normal mood and affect Skin - Warm and dry Objective Data Vital Signs Vital Signs: Vital Signs - 24 hr 08/17/25 14:00 08/17/25 16:00 08/17/25 20:00 Temperature 97.4 F L Pulse Rate 83 83 Respiratory Rate 16 Blood Pressure 152/88 H Pulse Oximetry 96 Oxygen Delivery Room Air 08/17/25 20:00 08/17/25 20:18 08/17/25 22:00 Temperature 98.4 F Pulse Rate 88 90 84 Respiratory Rate 18 Blood Pressure 150/98 H Pulse Oximetry 96 Oxygen Delivery 08/18/25 00:00 08/18/25 04:00 08/18/25 06:18 Temperature 98.4 F Pulse Rate 84 81 90 Respiratory Rate 19 Blood Pressure 144/94 H Pulse Oximetry 95 Oxygen Delivery 08/18/25 07:50 08/18/25 07:50 08/18/25 07:59 Temperature Pulse Rate 88 Respiratory Rate Blood Pressure Pulse Oximetry Oxygen Delivery Room Air Room Air 08/18/25 10:31 Temperature Pulse Rate 87 Respiratory Rate Blood Pressure Pulse Oximetry Oxygen Delivery Intake/Output Intake/Output: Intake & Output 08/15/25 08/16/25 08/17/25 08/18/25 23:59 23:59 23:59 23:59 Intake Total 3120 3598 1400 200 Output Total 2800 1800 500 Balance 3120 798 -400 -300 Meds/Results Medications: Active Medications Generic Name Dose Route Start Last Admin Trade Name Freq PRN Reason Stop Dose Admin Cyclobenzaprine HCl 10 mg 08/13/25 11:00 08/16/25 21:23 Cyclobenzaprine Hcl 10 Mg Tablet PO 10 mg Q8H PRN Administration Muscle Spasm Enoxaparin Sodium 40 mg 08/12/25 09:31 08/18/25 10:31 Enoxaparin 40 Mg/0.4 Ml Syringe SUB-Q 40 mg DAILY ARSLAN Administration Famotidine 20 mg 08/12/25 09:31 08/18/25 10:31 Famotidine 20 Mg/2 Ml Vial IV PUSH 20 mg Q12HR ARSLAN Administration Hydralazine HCl 10 mg 08/17/25 04:35 08/17/25 04:52 Hydralazine Hcl 20 Mg/Ml Vial IV PUSH 10 mg Q4H PRN Administration Blood Pressure - High Hydromorphone HCl 1 mg 08/12/25 09:31 08/15/25 08:11 Hydromorphone Hcl Inj (*Crx) 1 Mg/Ml Syr IV PUSH 1 mg Q2H PRN Administration Breakthrough Pain Rated 7-10 or NPO Hydromorphone HCl 0.5 mg 08/12/25 09:31 08/17/25 22:50 Hydromorphone Hcl Inj (*Crx) 1 Mg/Ml Syr IV PUSH 0.5 mg Q2H PRN Administration Breakthrough Pain Rated 4-6 or NPO Piperacillin Sod/Tazobactam 100 mls @ 200 mls/hr 08/12/25 10:00 08/18/25 11:01 Sod 4.5 gm/ Sodium Chloride IVPB Infused Q6H ARSLAN Infusion Ibuprofen 800 mg in 200 mls @ 400 mls/hr 08/12/25 09:31 08/16/25 14:21 Caldolor 800 Mg/200 Ml IVPB Infused Q6H PRN Infusion Breakthrough Pain Rated 1-3 or NPO Potassium Chloride/Dextrose/Sod Cl 1,000 mls @ 125 mls/hr 08/17/25 12:50 08/18/25 04:11 Kcl 20 Meq/D5/0.45% Sod Chl IV CONT 125 mls/hr .Q8H ARSLAN Administration Metoprolol Tartrate 25 mg 08/17/25 09:00 08/18/25 10:31 Metoprolol Tartrate 25 Mg Tablet PO 25 mg Q12HR ARSLAN Administration Metoprolol Tartrate 5 mg 08/17/25 21:09 Metoprolol Tartrate Inj 5 Mg/5 Ml Vial IV PUSH ONCE PRN HR greater than 120 for >10min Naloxone HCl 0.1 mg 08/12/25 09:31 Naloxone Hcl 0.4 Mg/Ml Vial IV PUSH Q2M PRN Opiate Reversal Ondansetron HCl 4 mg 08/12/25 09:31 08/17/25 08:37 Ondansetron Inj 4 Mg/2 Ml Vial IV PUSH 4 mg Q4H PRN Administration Nausea And Vomiting Phenol 1 spray 08/13/25 21:01 Phenol/Sod Pheno [place] Mg (*Bkc) MUCOUS MEM PRN PRN Sore Throat Radiology Results: ITS Impressions Chest X-Ray 08/17/25 08:33 IMPRESSION: 1. Further worsening bibasilar atelectasis and/or airspace disease. Abdomen/Pelvis CT 08/17/25 13:26 IMPRESSION: 1. Small bowel obstruction due to enteritis. 2. Moderate scattered ascites, including fluid within rectouterine space. Peritonitis cannot be excluded. Abdomen X-Ray 08/17/25 17:06 Impression: 1. Nasogastric tube in appropriate location. Small bowel obstruction Labs Labs: Laboratory Results - last 24 hr 08/17/25 08/18/25 14:22 05:21 WBC 12.1 H RBC 3.70 L Hgb 11.4 L Hct 35.5 L MCV 95.9 MCH 30.8 MCHC 32.1 RDW 13.2 Plt Count 503 H MPV 9.2 Immature Gran % (Auto) 2.7 H Neut % (Auto) 71.8 Lymph % (Auto) 14.7 L [place] % (Auto) 7.1 Eos % (Auto) 3.2 Baso % (Auto) 0.5 Lymph # (Auto) 1.78 [place] # (Auto) 0.9 H Eos # (Auto) 0.4 H Baso # (Auto) 0.1 Abs Immat Gran (auto) 0.33 H Absolute Neuts (auto) 8.7 H Absolute Nucleated RBC 0.000 Nucleated RBC % 0.0 Sodium 135 L Potassium 3.7 Chloride 106 Carbon Dioxide 24 Anion Gap 5 BUN 8 Creatinine 0.81 Estim Creat Clear Calc 58 Estimated GFR > 60 Glucose 140 H Calcium 8.0 L Phosphorus 3.1 Magnesium 1.9 Total Bilirubin 0.3 AST 41 H ALT 31 Alkaline Phosphatase 98 Troponin I < 0.012 Total Protein 5.3 L Albumin 2.6 L
--- NOTE | 2025-08-18 13:33 | P.PNGS_ITS ---
Progress Note: A&P Assessment and Plan (1) Perforation of sigmoid colon due to diverticulitis: Code(s): K57.20 - Diverticulitis of large intestine with perforation and abscess without bleeding Status: Acute Assessment and Plan: * CT abdomen/pelvis showed evidence of a SBO secondary to enteritis. NG tube placed and she is now NPO. * Will continue NG tube decompression and bowel rest. Will also consult the akiko titian and start PPN. * Continue IV Zosyn * Encouraged her to get up and ambulate in the halls and sit in the chair a few times today. Continue PT/OT Plan I have discussed the patient's case and plan of care with Dr. Wolfe. Subjective Subjective Date/Time Seen: 08/18/25 13:33 Post Op day: 6 (Leslee's procedure) Patient reports: no new complaints and afebrile Interval history: Patient had nausea, bloating and vomiting yesterday. CT a/p showed small bowel obstruction secondary to enteritis. She had an NG tube placed and reports feeling less distended and bloated since the NG was placed. Nausea has resolved. She has a few small pellets of stool in the bag, no gas. No output from her ostomy documented from the past few days. Patient does state they emptied a small amount of stool out earlier this morning. Exam Const: General: comfortable and no acute distress Orientation/consciousness: patient oriented x3 GI: Inspection: distended and other (Ostomy patent with small amount of stool in bag) GI Palp: Yes Soft to palpation, Yes Tenderness to palpation present (GI) (less tender today) and No Guarding due to palpation present (GI) Auscultation: Hypoactive bowel sounds present Other: Midline incision dry with shannon intact. There is one small area of skin s eparation at the bottom half of the incision where a staple came detached from the skin on one side of the incision, there is a 1 cm gap in the skin with subcutaneous tissue exposed, this gap is about 3-4 cm in length. I applied benzoin and steri strips to reapproximate the skin. No surrounding erythema Extrem: General: normal to inspection, no calf tenderness bilaterally and no edema Objective Data Vital Signs Vital Signs: Vital Signs - 24 hr 08/17/25 14:00 08/17/25 16:00 09/28/25 20:00 Temperature 97.4 F L Pulse Rate 83 83 Respiratory Rate 16 Blood Pressure 152/88 H Pulse Oximetry 96 Oxygen Delivery Room Air 08/17/25 20:00 08/17/25 20:18 08/17/25 22:00 Temperature 98.4 F Pulse Rate 88 90 84 Respiratory Rate 18 Blood Pressure 150/98 H Pulse Oximetry 96 Oxygen Delivery 08/18/25 00:00 08/18/25 04:00 08/18/25 06:18 Temperature 98.4 F Pulse Rate 84 81 90 Respiratory Rate 19 Blood Pressure 144/94 H Pulse Oximetry 95 Oxygen Delivery 08/18/25 07:50 08/18/25 07:50 08/18/25 07:59 Temperature Pulse Rate 88 Respiratory Rate Blood Pressure Pulse Oximetry Oxygen Delivery Room Air Room Air 08/18/25 10:31 Temperature Pulse Rate 87 Respiratory Rate Blood Pressure Pulse Oximetry Oxygen Delivery Intake/Output Intake/Output: Intake & Output 08/15/25 08/16/25 08/17/25 08/18/25 23:59 23:59 23:59 23:59 Intake Total 3120 3598 1400 200 Output Total 2800 1800 500 Balance 3120 798 -400 -300 Meds/Results Medications: Active Medications Generic Name Dose Route Start Last Admin Trade Name Freq PRN Reason Stop Dose Admin Cyclobenzaprine HCl 10 mg 08/13/25 11:00 08/16/25 21:23 Cyclobenzaprine Hcl 10 Mg Tablet PO 10 mg Q8H PRN Administration Muscle Spasm Enoxaparin Sodium 40 mg 08/12/25 09:31 08/18/25 10:31 Enoxaparin 40 Mg/0.4 Ml Syringe SUB-Q 40 mg DAILY ARSLAN Administration Famotidine 20 mg 08/12/25 09:31 08/18/25 10:31 Famotidine 20 Mg/2 Ml Vial IV PUSH 20 mg Q12HR ARSLAN Administration Hydralazine HCl 10 mg 08/17/25 04:35 08/17/25 04:52 Hydralazine Hcl 20 Mg/Ml Vial IV PUSH 10 mg Q4H PRN Administration Blood Pressure - High Hydromorphone HCl 1 mg 08/12/25 09:31 08/15/25 08:11 Hydromorphone Hcl Inj (*Crx) 1 Mg/Ml Syr IV PUSH 1 mg Q2H PRN Administration Breakthrough Pain Rated 7-10 or NPO Hydromorphone HCl 0.5 mg 08/12/25 09:31 08/17/25 22:50 Hydromorphone Hcl Inj (*Crx) 1 Mg/Ml Syr IV PUSH 0.5 mg Q2H PRN Administration Breakthrough Pain Rated 4-6 or NPO Piperacillin Sod/Tazobactam 100 mls @ 200 mls/hr 08/12/25 10:00 08/18/25 11:01 Sod 4.5 gm/ Sodium Chloride IVPB Infused Q6H ARSLAN Infusion Ibuprofen 800 mg in 200 mls @ 400 mls/hr 08/12/25 09:31 08/16/25 14:21 Caldolor 800 Mg/200 Ml IVPB Infused Q6H PRN Infusion Breakthrough Pain Rated 1-3 or NPO Potassium Chloride/Dextrose/Sod Cl 1,000 mls @ 125 mls/hr 08/17/25 12:50 08/18/25 04:11 Kcl 20 Meq/D5/0.45% Sod Chl IV CONT 125 mls/hr .Q8H ARSLAN Administration Metoprolol Tartrate 25 mg 08/17/25 09:00 08/18/25 10:31 Metoprolol Tartrate 25 Mg Tablet PO 25 mg Q12HR ARSLAN Administration Metoprolol Tartrate 5 mg 08/17/25 21:09 Metoprolol Tartrate Inj 5 Mg/5 Ml Vial IV PUSH ONCE PRN HR greater than 120 for >10min Naloxone HCl 0.1 mg 08/12/25 09:31 Naloxone Hcl 0.4 Mg/Ml Vial IV PUSH Q2M PRN Opiate Reversal Ondansetron HCl 4 mg 08/12/25 09:31 08/17/25 08:37 Ondansetron Inj 4 Mg/2 Ml Vial IV PUSH 4 mg Q4H PRN Administration Nausea And Vomiting Phenol 1 spray 08/13/25 21:01 Phenol/Sod Pheno [place] Mg (*Bkc) MUCOUS MEM PRN PRN Sore Throat Radiology Results: ITS Impressions Chest X-Ray 08/17/25 08:33 IMPRESSION: 1. Further worsening bibasilar atelectasis and/or airspace disease. Abdomen/Pelvis CT 08/17/25 13:26 IMPRESSION: 1. Small bowel obstruction due to enteritis. 2. Moderate scattered ascites, including fluid within rectouterine space. Peritonitis cannot be excluded. Abdomen X-Ray 08/17/25 17:06 Impression: 1. Nasogastric tube in appropriate location. Small bowel obstruction Labs Labs: Laboratory Results - last 24 hr 08/17/25 08/18/25 14:22 05:21 WBC 12.1 H RBC 3.70 L Hgb 11.4 L Hct 35.5 L MCV 95.9 MCH 30.8 MCHC 32.1 RDW 13.2 Plt Count 503 H MPV 9.2 Immature Gran % (Auto) 2.7 H Neut % (Auto) 71.8 Lymph % (Auto) 14.7 L [place] % (Auto) 7.1 Eos % (Auto) 3.2 Baso % (Auto) 0.5 Lymph # (Auto) 1.78 [place] # (Auto) 0.9 H Eos # (Auto) 0.4 H Baso # (Auto) 0.1 Abs Immat Gran (auto) 0.33 H Absolute Neuts (auto) 8.7 H Absolute Nucleated RBC 0.000 Nucleated RBC % 0.0 Sodium 135 L Potassium 3.7 Chloride 106 Carbon Dioxide 24 Anion Gap 5 BUN 8 Creatinine 0.81 Estim Creat Clear Calc 58 Estimated GFR > 60 Glucose 140 H Calcium 8.0 L Phosphorus 3.1 Magnesium 1.9 Total Bilirubin 0.3 AST 41 H ALT 31 Alkaline Phosphatase 98 Troponin I < 0.012 Total Protein 5.3 L Albumin 2.6 L
--- NOTE | 2025-08-18 14:01 | PC.NURSE ---
RN spoke with surgery TERRENCE Esparza and it is okay for patient to have ice chips sparingly.
--- NOTE | 2025-08-18 14:30 | PC.NURSE ---
Dr Wolfe spoke with this RN at nurses station. Stated to clamp patient's tube, start her on full liquids, and do not give ordered PPN and lipids.
[2025-08-18] MEDS: IBUPROFEN IV 800 MG/200 ML 800 MG/200 ML BAG 400 MG IVPB (14:52)
--- NOTE | 2025-08-18 16:16 | PC.NURSE ---
Patient wants to walk the halls. RN told patient she cannot leave the unit due to IV access and cardiac cath technician being on. RN was with another patient in another room. When coming out of another room [employer] and RN told this RN that patient has left the unit and her cardiac cath technician is not registering. RN called hot metal charger and updated her. RN to call security to locate patient.
--- NOTE | 2025-08-18 17:27 | PC.NURSE ---
RN spoke with Dr Wolfe via telephone. Okay to remove NG at this time.
[2025-08-18] MEDS: FUROSEMIDE INJ 40 MG/4 ML VIAL 20 MG IV PUSH (18:25)
[2025-08-18] MEDS: METOPROLOL TARTRATE 25 MG TABLET PO (21:29)
[2025-08-19] VITALS (12 sets, daily range): BP systolic 135–180; BP diastolic 94–110; PULSE 77–96; RESP 18–20; TEMP 36.6–36.9; O2SAT 90–100
[2025-08-19] MEDS: PIPERACILLIN/TAZOBACTAM SOD 4.5 GM in SODIUM CHLORIDE 0.9% IV 100 ML 200 ML IVPB ×4 (05:22→23:59)
[2025-08-19 06:02] LABS: Hematocrit 38.1 % (37.0-47.0); Hemoglobin 12.2 g/dL (12.0-15.0); Mean Corpuscular HGB Conc 32.0 g/dl (32-36); Mean Corpuscular Hemoglobin 30.3 pg (26-34); Mean Corpuscular Volume 94.5 fl (80-100); Platelet Count Result 648 k/mm3 (150-375); Red Blood Count 4.03 M/mm3 (4.2-5.4); White Blood Count 11.4 K/mm3 (4.5-10.0)
[2025-08-19 06:13] LABS: Transferrin 182 mg/dL (206-381)
[2025-08-19 06:37] LABS: Anion Gap 7 mmol/L (4-12); Blood Urea Nitrogen 5 mg/dL (7-17); Calcium 8.6 mg/dL (8.4-10.2); Carbon Dioxide 22 mmol/L (22-30); Chloride 105 mmol/L (98-107); Estimated CRCL calculation 61 ml/min; Estimated Glomerular Filt Rate > 60; Glucose 103 mg/dL (65-110); Potassium 3.8 mmol/L (3.4-5.0); Sodium 134 mmol/L (137-145)
[2025-08-19] MEDS: FAMOTIDINE 20 MG/2 ML VIAL IV PUSH ×2 (09:24→20:46)
[2025-08-19] MEDS: ENOXAPARIN 40 MG/0.4 ML SYRINGE SUB-Q (09:24)
[2025-08-19] MEDS: METOPROLOL TARTRATE 25 MG TABLET PO ×2 (09:24→20:46)
--- NOTE | 2025-08-19 10:43 | PCNFU ---
Nutrition Follow-Up Complete: Moderate Protein Calorie Malnutrition related to inadequate oral intake in setting of acute disease or injury (SBO) as evidenced by < 75% of EER for > 7 days ; significant weight loss of 5% (8 ibs) in 1 week. Goal:Meet estimated nutritional needs. Pt progressing towards goal Pt current nutrition is Full liquids. Nutrition recommendation: Add Ensure+HP BID for an additional 350kcals, 20g protein Last recorded weight is 77.8 kg. Bowel Motility: +BM 08/19 Labs Reviewed: NA:134, BUN:5 Meds Noted: lovenox Skin: WNL Additional Notes: Pt diet advanced to full liquids, no PPN or TPN started, NGT removed today. Pt to start on liquids today and nursing will monitor tolerance. Recommend to add Ensure shakes BID, advance diet as tolerated Will monitor weight, labs, skin, diet orders, meds. Follow up in 3 days.
[2025-08-19] MEDS: IBUPROFEN IV 800 MG/200 ML 800 MG/200 ML BAG 400 MG IVPB (12:04)
--- NOTE | 2025-08-19 12:31 | P.PNGS_ITS ---
Progress Note: A&P Assessment and Plan (1) Perforation of sigmoid colon due to diverticulitis: Code(s): K57.20 - Diverticulitis of large intestine with perforation and abscess without bleeding Status: Acute Assessment and Plan: * SBO seems to be resolving. NG tube removed and she is tolerating full liquids. * Advance to solid food for dinner. * Continue IV Zosyn and repeat CBC tomorrow. Hopefully transition to oral antibiotics in the next 1-2 days. * Continue ambulating in the halls, up to chair, IS use Plan I have discussed the patient's case and plan of care with Dr. Wolfe. Subjective Subjective Date/Time Seen: 08/19/25 12:31 Patient reports: no new complaints, voiding w/o difficulty and afebrile Interval history: Patient feeling well today. No nausea or vomiting. She still feels bloated, but better. Her ostomy has had 325 cc stool output in the past 24 hours. She tolerated full liquids this morning. She is ambulating in the halls and tolerating this well. Review of Systems Review of Systems: All systems reviewed & are unremarkable except as noted in HPI and below Exam Const: General: comfortable and no acute distress GI: Inspection: other (mildly distended) GI Palp: Yes Soft to palpation, Yes Tenderness to palpation present (GI) (incisional tenderness and leftsided tenderness), No Guarding due to palpation present (GI) and No Rebound tenderness present Auscultation: Hypoactive bowel sounds present (better today) Other: Midline incision dry with shannon and steri strips intact. No surrounding erythema. Ostomy functioning with soft brown stool in the bag, stoma viable and pink. Extrem: General: no calf tenderness bilaterally and no edema Objective Data Vital Signs Vital Signs: Vital Signs - 24 hr 08/18/25 14:00 08/18/25 16:00 08/18/25 20:00 Temperature 97.0 F L Pulse Rate 87 106 H Respiratory Rate 18 Blood Pressure 185/88 H Pulse Oximetry 96 Oxygen Delivery Room Air Fraction of Inspired Oxygen 08/18/25 20:00 08/18/25 20:50 08/18/25 21:25 Temperature 98.4 F Pulse Rate 112 H 99 99 Respiratory Rate 20 Blood Pressure 186/115 H Pulse Oximetry 96 95 Oxygen Delivery Room Air Fraction of Inspired Oxygen 21 08/18/25 21:29 08/19/25 00:00 08/19/25 04:00 Temperature Pulse Rate 90 82 79 Respiratory Rate Blood Pressure Pulse Oximetry Oxygen Delivery Fraction of Inspired Oxygen 08/19/25 05:14 08/19/25 06:49 08/19/25 08:00 Temperature 98.2 F Pulse Rate 87 86 Respiratory Rate 20 Blood Pressure 180/110 H 148/94 H Pulse Oximetry 90 Oxygen Delivery Fraction of Inspired Oxygen 08/19/25 09:24 Temperature Pulse Rate 96 Respiratory Rate Blood Pressure Pulse Oximetry Oxygen Delivery Fraction of Inspired Oxygen Intake/Output Intake/Output: Intake & Output 08/16/25 08/17/25 08/18/25 08/19/25 23:59 23:59 23:59 23:59 Intake Total 3598 1400 740 340 Output Total 2800 1800 2100 725 Balance 798 -400 -1360 -385 Meds/Results Medications: Active Medications Generic Name Dose Route Start Last Admin Trade Name Freq PRN Reason Stop Dose Admin Cyclobenzaprine HCl 10 mg 08/13/25 11:00 08/16/25 21:23 Cyclobenzaprine Hcl 10 Mg Tablet PO 10 mg Q8H PRN Administration Muscle Spasm Enoxaparin Sodium 40 mg 08/12/25 09:31 08/19/25 09:24 Enoxaparin 40 Mg/0.4 Ml Syringe SUB-Q 40 mg DAILY ARSLAN Administration Famotidine 20 mg 08/12/25 09:31 08/19/25 09:24 Famotidine 20 Mg/2 Ml Vial IV PUSH 20 mg Q12HR ARSLAN Administration Hydralazine HCl 10 mg 08/17/25 04:35 08/19/25 05:22 Hydralazine Hcl 20 Mg/Ml Vial IV PUSH 10 mg Q4H PRN Administration Blood Pressure - High Hydromorphone HCl 1 mg 08/12/25 09:31 08/15/25 08:11 Hydromorphone Hcl Inj (*Crx) 1 Mg/Ml Syr IV PUSH 1 mg Q2H PRN Administration Breakthrough Pain Rated 7-10 or NPO Hydromorphone HCl 0.5 mg 08/12/25 09:31 08/17/25 22:50 Hydromorphone Hcl Inj (*Crx) 1 Mg/Ml Syr IV PUSH 0.5 mg Q2H PRN Administration Breakthrough Pain Rated 4-6 or NPO Ibuprofen 800 mg in 200 mls @ 400 mls/hr 08/12/25 09:31 08/19/25 12:04 Caldolor 800 Mg/200 Ml IVPB 400 mls/hr Q6H PRN Administration Breakthrough Pain Rated 1-3 or NPO Dextrose 1,000 mls @ 50 mls/hr 08/18/25 13:33 Dextrose 10% IV CONT .Q20H PRN if PN is interrupted Piperacillin Sod/Tazobactam 100 mls @ 200 mls/hr 08/19/25 17:00 Sod 4.5 gm/ Sodium Chloride IVPB Q6HR ARSLAN Metoprolol Tartrate 25 mg 08/17/25 09:00 08/19/25 09:24 Metoprolol Tartrate 25 Mg Tablet PO 25 mg Q12HR ARSLAN Administration Metoprolol Tartrate 5 mg 08/17/25 21:09 Metoprolol Tartrate Inj 5 Mg/5 Ml Vial IV PUSH ONCE PRN HR greater than 120 for >10min Naloxone HCl 0.1 mg 08/12/25 09:31 Naloxone Hcl 0.4 Mg/Ml Vial IV PUSH Q2M PRN Opiate Reversal Ondansetron HCl 4 mg 08/12/25 09:31 08/17/25 08:37 Ondansetron Inj 4 Mg/2 Ml Vial IV PUSH 4 mg Q4H PRN Administration Nausea And Vomiting Phenol 1 spray 08/13/25 21:01 Phenol/Sod Pheno [place] Mg (*Bkc) MUCOUS MEM PRN PRN Sore Throat Radiology Results: ITS Impressions Chest X-Ray 08/17/25 08:33 IMPRESSION: 1. Further worsening bibasilar atelectasis and/or airspace disease. Abdomen/Pelvis CT 08/17/25 13:26 IMPRESSION: 1. Small bowel obstruction due to enteritis. 2. Moderate scattered ascites, including fluid within rectouterine space. Peritonitis cannot be excluded. Abdomen X-Ray 08/17/25 17:06 Impression: 1. Nasogastric tube in appropriate location. Small bowel obstruction Labs Labs: Laboratory Results - last 24 hr 08/19/25 05:20 WBC 11.4 H RBC 4.03 L Hgb 12.2 Hct 38.1 MCV 94.5 MCH 30.3 MCHC 32.0 RDW 13.1 Plt Count 648 H MPV 9.2 Sodium 134 L Potassium 3.8 Chloride 105 Carbon Dioxide 22 Anion Gap 7 BUN 5 L Creatinine 0.77 Estim Creat Clear Calc 61 Estimated GFR > 60 Glucose 103 Calcium 8.6 Phosphorus 3.3 Transferrin 182 L
--- NOTE | 2025-08-19 12:35 | PM.IMPN ---
Progress Note: A&P Assessment and Plan (1) Chest pain: Code(s): R07.9 - Chest pain, unspecified Status: Acute Assessment and Plan: Patient developed CP the morning on 08/17. BP around that time was elevated but unclear if CP is caused by elevated BP or in response to CP. EKG showing Rt BBB but otherwise no acute findings. Renal fxn panel at that time was unrevealing except glucose 145. CXR showing worsening bibasilar atelectasis. Troponin negative x3. BNP 617. Consider left diaphragmatic irritation causing referred pain. No recurrence. Follow on tele. (2) Elevated blood pressure reading without diagnosis of hypertension: Code(s): R03.0 - Elevated blood-pressure reading, without diagnosis of hypertension Status: Acute Assessment and Plan: Blood pressure elevated but no hx of HTN She is fluid positive over 10L and could be the etiology of the elevated BP. She received Lasix x1 with good UOP. Monitor for now. Schedule low dose lasix (3) Sepsis: Code(s): A41.9 - Sepsis, unspecified organism Status: Acute Assessment and Plan: Patient recently diagnosed with diverticulitis. WBC 31K with neutrophilia. Lactic acid is normal but she does have sepsis with tachycardia, tachypnea, leukocytosis. CT Abd/Pelvis showing perforated sigmoid diverticulitis and bibasilar atelectasis. CXR also with worsening bibasilar atelectasis. Sepsis related to sigmoid perforation with peritonitis. Zosyn started. She received 2 L lactated Ringer's, morphine, Dilaudid, and diphenhydramine, Reglan, Zosyn. She underwent surgical repair. BCx NGTD. Sepsis symptoms resolving (4) Perforation of sigmoid colon due to diverticulitis: Code(s): K57.20 - Diverticulitis of large intestine with perforation and abscess without bleeding Status: Acute Assessment and Plan: General surgery was consulted and she underwent exploratory laparotomy with resection of perforated sigmoid diverticulitis and end-colostomy on 08/12. She tolerated the surgery very well. She developed abd distention and n/v on 08/17. CT Abd/Pelvis showing small effusions with dependent atelectasis, dilated loops of SB with transition point LLL, moderate ascites but no free air. NGT was replaced but now out again. TPN stopped Increase activity. Continue IV Zosyn. Continue PT/OT. (5) Peritonitis: Code(s): K65.9 - Peritonitis, unspecified Status: Acute Assessment and Plan: treatment as above. (6) Diverticulitis: Code(s): K57.92 - Diverticulitis of intestine, part unspecified, without perforation or abscess without bleeding Status: Acute Assessment and Plan: s/p sigmoid resection. (7) Ileus: Code(s): K56.7 - Ileus, unspecified Status: Acute Assessment and Plan: As above. Serial xray and exams. Stool noted in colostomy now. Follow Plan DVT prophylaxis Lovenox Code status full code Subjective Date/time seen: 08/19/25 12:35 Interval history: 60-year-old female, prior smoker, current vape addiction, presents with abdominal pain worse the day prior she was reportedly diagnosed with diverticulitis recently. NGT out. Tolerating full liquid diet. No CP. Abd pain better. Up walking in room Exam Narrative: AF 98.2 148/94 96 20 90% ra Gen - NARD Chest - Clear bilaterally CV - RRR S1/S2. Telemetry showing no significant dysrhythmias Abd -soft. Colostomy left lower quadrant with light brown stool in bag. Ext - No pedal edema. Neuro - Alert and appropriate Psych -normal mood and affect Skin - Warm and dry Objective Data Vital Signs Vital Signs: Vital Signs - 24 hr 08/18/25 14:00 08/18/25 16:00 08/18/25 20:00 Temperature 97.0 F L Pulse Rate 87 106 H Respiratory Rate 18 Blood Pressure 185/88 H Pulse Oximetry 96 Oxygen Delivery Room Air Fraction of Inspired Oxygen 08/18/25 20:00 08/18/25 20:50 08/18/25 21:25 Temperature 98.4 F Pulse Rate 112 H 99 99 Respiratory Rate 20 Blood Pressure 186/115 H Pulse Oximetry 96 95 Oxygen Delivery Room Air Fraction of Inspired Oxygen 21 08/18/25 21:29 08/19/25 00:00 08/19/25 04:00 Temperature Pulse Rate 90 82 79 Respiratory Rate Blood Pressure Pulse Oximetry Oxygen Delivery Fraction of Inspired Oxygen 08/19/25 05:14 08/19/25 06:49 08/19/25 08:00 Temperature 98.2 F Pulse Rate 87 86 Respiratory Rate 20 Blood Pressure 180/110 H 148/94 H Pulse Oximetry 90 Oxygen Delivery Fraction of Inspired Oxygen 08/19/25 09:24 Temperature Pulse Rate 96 Respiratory Rate Blood Pressure Pulse Oximetry Oxygen Delivery Fraction of Inspired Oxygen Intake/Output Intake/Output: Intake & Output 08/16/25 08/17/25 08/18/25 08/19/25 23:59 23:59 23:59 23:59 Intake Total 3598 1400 740 340 Output Total 2800 1800 2100 725 Balance 798 -400 -1360 -385 Meds/Results Medications: Active Medications Generic Name Dose Route Start Last Admin Trade Name Freq PRN Reason Stop Dose Admin Cyclobenzaprine HCl 10 mg 08/13/25 11:00 08/16/25 21:23 Cyclobenzaprine Hcl 10 Mg Tablet PO 10 mg Q8H PRN Administration Muscle Spasm Enoxaparin Sodium 40 mg 08/12/25 09:31 08/19/25 09:24 Enoxaparin 40 Mg/0.4 Ml Syringe SUB-Q 40 mg DAILY ARSLAN Administration Famotidine 20 mg 08/12/25 09:31 08/19/25 09:24 Famotidine 20 Mg/2 Ml Vial IV PUSH 20 mg Q12HR ARSLAN Administration Hydralazine HCl 10 mg 08/17/25 04:35 08/19/25 05:22 Hydralazine Hcl 20 Mg/Ml Vial IV PUSH 10 mg Q4H PRN Administration Blood Pressure - High Hydromorphone HCl 1 mg 08/12/25 09:31 08/15/25 08:11 Hydromorphone Hcl Inj (*Crx) 1 Mg/Ml Syr IV PUSH 1 mg Q2H PRN Administration Breakthrough Pain Rated 7-10 or NPO Hydromorphone HCl 0.5 mg 08/12/25 09:31 08/17/25 22:50 Hydromorphone Hcl Inj (*Crx) 1 Mg/Ml Syr IV PUSH 0.5 mg Q2H PRN Administration Breakthrough Pain Rated 4-6 or NPO Ibuprofen 800 mg in 200 mls @ 400 mls/hr 08/12/25 09:31 08/19/25 12:04 Caldolor 800 Mg/200 Ml IVPB 400 mls/hr Q6H PRN Administration Breakthrough Pain Rated 1-3 or NPO Dextrose 1,000 mls @ 50 mls/hr 08/18/25 13:33 Dextrose 10% IV CONT .Q20H PRN if PN is interrupted Piperacillin Sod/Tazobactam 100 mls @ 200 mls/hr 08/19/25 17:00 Sod 4.5 gm/ Sodium Chloride IVPB Q6HR ARSLAN Metoprolol Tartrate 25 mg 08/17/25 09:00 08/19/25 09:24 Metoprolol Tartrate 25 Mg Tablet PO 25 mg Q12HR ARSLAN Administration Metoprolol Tartrate 5 mg 08/17/25 21:09 Metoprolol Tartrate Inj 5 Mg/5 Ml Vial IV PUSH ONCE PRN HR greater than 120 for >10min Naloxone HCl 0.1 mg 08/12/25 09:31 Naloxone Hcl 0.4 Mg/Ml Vial IV PUSH Q2M PRN Opiate Reversal Ondansetron HCl 4 mg 08/12/25 09:31 08/17/25 08:37 Ondansetron Inj 4 Mg/2 Ml Vial IV PUSH 4 mg Q4H PRN Administration Nausea And Vomiting Phenol 1 spray 08/13/25 21:01 Phenol/Sod Pheno [place] Mg (*Bkc) MUCOUS MEM PRN PRN Sore Throat Radiology Results: ITS Impressions Chest X-Ray 08/17/25 08:33 IMPRESSION: 1. Further worsening bibasilar atelectasis and/or airspace disease. Abdomen/Pelvis CT 08/17/25 13:26 IMPRESSION: 1. Small bowel obstruction due to enteritis. 2. Moderate scattered ascites, including fluid within rectouterine space. Peritonitis cannot be excluded. Abdomen X-Ray 08/17/25 17:06 Impression: 1. Nasogastric tube in appropriate location. Small bowel obstruction Labs Labs: Laboratory Results - last 24 hr 08/19/25 05:20 WBC 11.4 H RBC 4.03 L Hgb 12.2 Hct 38.1 MCV 94.5 MCH 30.3 MCHC 32.0 RDW 13.1 Plt Count 648 H MPV 9.2 Sodium 134 L Potassium 3.8 Chloride 105 Carbon Dioxide 22 Anion Gap 7 BUN 5 L Creatinine 0.77 Estim Creat Clear Calc 61 Estimated GFR > 60 Glucose 103 Calcium 8.6 Phosphorus 3.3 Transferrin 182 L
[2025-08-19] MEDS: FUROSEMIDE 20 MG TABLET PO (17:56)
[2025-08-20] VITALS (7 sets, daily range): BP systolic 144–147; BP diastolic 87; PULSE 79–88; RESP 16–18; TEMP 36.1–36.8; O2SAT 97
[2025-08-20 03:53] LABS: Add Urine Microscopic? NO; Appearance Urine Clear (Clear); Glucose Urine UA Negative (Negative); Leukocyte Esterase Ur Negative LEU/UL (Negative); Nitrate Urine Negative (Negative); Specific Grav Ur 1.014 (1.001-1.035)
[2025-08-20] MEDS: PIPERACILLIN/TAZOBACTAM SOD 4.5 GM in SODIUM CHLORIDE 0.9% IV 100 ML 200 ML IVPB (05:02)
[2025-08-20 05:42] LABS: Hematocrit 35.1 % (37.0-47.0); Hemoglobin 11.1 g/dL (12.0-15.0); Immature Granulocyte Percent A 1.8 % (0-0.5); Lymphocytes Absolute Auto 1.54 K/mm3 (0.9-3.2); Mean Corpuscular HGB Conc 31.6 g/dl (32-36); Mean Corpuscular Hemoglobin 30.2 pg (26-34); Mean Corpuscular Volume 95.4 fl (80-100); Nucleated Red Blood Cells Absolute Auto 0.000 K/mm3 (0.0-0.012); Nucleated Red Blood Cells Perc 0.0 % (0.0-0.2); Platelet Count Result 585 k/mm3 (150-375); Red Blood Count 3.68 M/mm3 (4.2-5.4); White Blood Count 8.6 K/mm3 (4.5-10.0)
[2025-08-20 06:30] LABS: Anion Gap 5 mmol/L (4-12); Blood Urea Nitrogen 10 mg/dL (7-17); Calcium 8.4 mg/dL (8.4-10.2); Carbon Dioxide 21 mmol/L (22-30); Chloride 108 mmol/L (98-107); Estimated CRCL calculation 52 ml/min; Estimated Glomerular Filt Rate > 60; Glucose 114 mg/dL (65-110); Potassium 3.8 mmol/L (3.4-5.0); Sodium 134 mmol/L (137-145)
[2025-08-20] MEDS: METOPROLOL TARTRATE 25 MG TABLET PO (08:21)
[2025-08-20] MEDS: FUROSEMIDE 20 MG TABLET PO (08:21)
--- NOTE | 2025-08-20 14:41 | PM.PNGS ---
Progress Note: A&P Assessment and Plan (1) Perforation of sigmoid colon due to diverticulitis: Code(s): K57.20 - Diverticulitis of large intestine with perforation and abscess without bleeding Status: Acute Assessment and Plan: SBO resolved. Patient having good output from ostomy. Tolerating solid diet without nausea or vomiting. Ok to switch to oral antibiotics today. Patient is surgically stable for discharge. She will continue antibiotics for 8 more days for a total of 2 weeks on antibiotics. follow up with Dr. Wolfe in 1 week for staple removal. Continue ambulating in the halls, up to chair, IS use Plan I have discussed the patient's case and plan of care with Dr. Wolfe. Subjective Subjective Date/Time Seen: 08/20/25 14:41 Interval history: Patient is doing very well today. No new complaints. Stable overnight. Having good stool output from ostomy. Afebrile. WBC normalized to 11.4. Exam Const: General: comfortable and no acute distress GI: Inspection: non-distended GI Palp: Yes Soft to palpation, No Tenderness to palpation present (GI) and No Guarding due to palpation present (GI) Other: Ostomy with gas and soft brown stool in bag. Midline incision looks clean and dry. [place] intact. No purulent discharge or drainage from wound. No surrounding redness. Objective Data Vital Signs Vital Signs: Vital Signs - 24 hr 08/19/25 16:00 08/19/25 20:31 08/19/25 20:46 Temperature 98 F Pulse Rate 87 84 86 Respiratory Rate 18 Blood Pressure 152/95 H Pulse Oximetry 100 Oxygen Delivery 08/19/25 20:46 08/20/25 00:00 08/20/25 04:00 Temperature Pulse Rate 86 80 79 Respiratory Rate Blood Pressure Pulse Oximetry Oxygen Delivery 08/20/25 04:01 08/20/25 08:04 08/20/25 08:21 Temperature 97 F L Pulse Rate 80 88 80 Respiratory Rate 18 Blood Pressure 144/87 H Pulse Oximetry 97 Oxygen Delivery 08/20/25 08:30 08/20/25 12:06 Temperature Pulse Rate 85 Respiratory Rate Blood Pressure Pulse Oximetry Oxygen Delivery Room Air Intake/Output Intake/Output: Intake & Output 08/17/25 08/18/25 08/19/25 08/20/25 23:59 23:59 23:59 23:59 Intake Total 3570 471 4948 620 Output Total 1800 2100 725 20 Balance -400 -1360 485 600 Meds/Results Medications: Active Medications Generic Name Dose Route Start Last Admin Trade Name Freq PRN Reason Stop Dose Admin Acetaminophen 650 mg 08/19/25 12:49 Acetaminophen 325 Mg Tablet PO Q4H PRN Mild Pain (1-3) or Fever Hydrocodone Bitart/Acetaminophen 1 tab 08/19/25 12:49 Hydrocodone/Acetaminophen (*Crx) 5-325 Mg Tablet PO Q4H PRN Pain Rated 4-6 Hydrocodone Bitart/Acetaminophen 1 tab 08/19/25 12:49 Hydrocodone/Acetaminophen (*Crx) 10-325 Mg Tablet PO Q6H PRN Pain Rated 7-10 Cyclobenzaprine HCl 10 mg 08/13/25 11:00 08/16/25 21:23 Cyclobenzaprine Hcl 10 Mg Tablet PO 10 mg Q8H PRN Administration Muscle Spasm Enoxaparin Sodium 40 mg 08/12/25 09:31 08/20/25 08:22 Enoxaparin 40 Mg/0.4 Ml Syringe SUB-Q Not Given DAILY [facility] Famotidine 20 mg 08/12/25 09:31 08/20/25 13:19 Famotidine 20 Mg/2 Ml Vial IV PUSH Not Given Q12HR ARSLAN Furosemide 20 mg 08/19/25 17:00 08/20/25 08:21 Furosemide 20 Mg Tablet PO 08/20/25 17:01 20 mg BID ARSLAN Administration Hydralazine HCl 10 mg 08/17/25 04:35 08/19/25 05:22 Hydralazine Hcl 20 Mg/Ml Vial IV PUSH 10 mg Q4H PRN Administration Blood Pressure - High Hydromorphone HCl 0.5 mg 08/12/25 09:31 08/17/25 22:50 Hydromorphone Hcl Inj (*Crx) 1 Mg/Ml Syr IV PUSH 0.5 mg Q2H PRN Administration Pain Rated 7-10 Piperacillin Sod/Tazobactam 100 mls @ 200 mls/hr 08/19/25 17:00 08/20/25 13:19 Sod 4.5 gm/ Sodium Chloride IVPB Not Given Q6HR ARSLAN Ibuprofen 600 mg 08/19/25 12:49 Ibuprofen 600 Mg Tablet PO Q6H PRN Pain Rated 1-3 Metoprolol Tartrate 25 mg 08/17/25 09:00 08/20/25 08:21 Metoprolol Tartrate 25 Mg Tablet PO 25 mg Q12HR ARSLAN Administration Metoprolol Tartrate 5 mg 08/17/25 21:09 Metoprolol Tartrate Inj 5 Mg/5 Ml Vial IV PUSH ONCE PRN HR greater than 120 for >10min Naloxone HCl 0.1 mg 08/12/25 09:31 Naloxone Hcl 0.4 Mg/Ml Vial IV PUSH Q2M PRN Opiate Reversal Ondansetron HCl 4 mg 08/12/25 09:31 08/17/25 08:37 Ondansetron Inj 4 Mg/2 Ml Vial IV PUSH 4 mg Q4H PRN Administration Nausea And Vomiting Phenol 1 spray 08/13/25 21:01 Phenol/Sod Pheno [place] Mg (*Bkc) MUCOUS MEM PRN PRN Sore Throat Radiology Results: ITS Impressions Chest X-Ray 08/17/25 08:33 IMPRESSION: 1. Further worsening bibasilar atelectasis and/or airspace disease. Abdomen/Pelvis CT 08/17/25 13:26 IMPRESSION: 1. Small bowel obstruction due to enteritis. 2. Moderate scattered ascites, including fluid within rectouterine space. Peritonitis cannot be excluded. Abdomen X-Ray 08/17/25 17:06 Impression: 1. Nasogastric tube in appropriate location. Small bowel obstruction Labs Labs: Laboratory Results - last 24 hr 08/20/25 08/20/25 00:32 05:31 WBC 8.6 RBC 3.68 L Hgb 11.1 L Hct 35.1 L MCV 95.4 MCH 30.2 MCHC 31.6 L RDW 13.1 Plt Count 585 H MPV 9.0 Immature Gran % (Auto) 1.8 H Neut % (Auto) 68.6 Lymph % (Auto) 18.0 L [place] % (Auto) 8.4 Eos % (Auto) 2.6 Baso % (Auto) 0.6 Lymph # (Auto) 1.54 [place] # (Auto) 0.7 H Eos # (Auto) 0.2 Baso # (Auto) 0.1 Abs Immat Gran (auto) 0.15 H Absolute Neuts (auto) 5.9 Absolute Nucleated RBC 0.000 Nucleated RBC % 0.0 Sodium 134 L Potassium 3.8 Chloride 108 H Carbon Dioxide 21 L Anion Gap 5 BUN 10 D Creatinine 0.88 Estim Creat Clear Calc 52 Estimated GFR > 60 Glucose 114 H Calcium 8.4 Urine Color Yellow Urine Appearance Clear Urine pH 7.0 Ur Specific [place] 1.014 Urine Protein Negative Urine Glucose (UA) Negative Urine Ketones Negative Ur Blood (Man) Negative Urine Nitrate Negative Urine Bilirubin Negative Urine Urobilinogen 1.0 Leukocyte Esterase Rfl Negative
--- NOTE | 2025-08-20 15:18 | P.DS_ITS ---
DS: Admitting Diagnosis Discharge Date 08/20/25 Admitting Diagnosis Sepsis Diverticulitis of sigmoid colon with perforation DS: Discharge Diagnosis Discharge Diagnosis (1) Perforation of sigmoid colon due to diverticulitis: Code(s): K57.20 - Diverticulitis of large intestine with perforation and abscess without bleeding Status: Acute (2) Ileus: Code(s): K56.7 - Ileus, unspecified Status: Acute (3) Peritonitis: Code(s): K65.9 - Peritonitis, unspecified Status: Acute (4) Chest pain: Code(s): R07.9 - Chest pain, unspecified Status: Acute (5) Sepsis: Code(s): A41.9 - Sepsis, unspecified organism Status: Acute DS: Summary Hospital Course Reason for hospitalization: Sepsis Hospital Course: 60-year-old female, prior smoker, current vape addiction, presents with abdominal pain worse the day prior she was reportedly diagnosed with diverticulitis recently.Initial evaluation in the ER revealed WBC 18455, hemoglobin 14.5, Abdomen pelvis CT preliminary read demonstrating perforated sigmoid diverticulitis. Surgery was consulted. Status post exploratory laparotomy, resection of perforated sigmoid diverticulitis, creation of end colostomy on 08/12/2025. Continued on antibiotics. Was able to tolerate food eventually. Patient is being discharged home in stable condition with prescription for oral antibiotics to complete a total 2 week course. Patient will follow-up with surgery as an outpatient. Status at Discharge Functional status at discharge: independent ambulation Overall status at discharge: patient is progressing back to baseline Time Spent with Patient Time attestation: Total time spent providing and/or coordinating discharge services:32 mins Exam Narrative: Gen - NARD Chest - Clear bilaterally CV - RRR S1/S2. Telemetry showing no significant dysrhythmias Abd -soft. Colostomy left lower quadrant with light brown stool in bag. Ext - No pedal edema. Neuro - Alert and appropriate Psych -normal mood and affect Skin - Warm and dry DS: Data Data Completed and Pending Completed studies during hospitalization: Pending at discharge 08/12/25 07:21 Surgical [PTH] Routine Labs on day of discharge: Labs from last 24 hours 08/20/25 08/20/25 05:31 00:32 WBC 8.6 RBC 3.68 L Hgb 11.1 L Hct 35.1 L MCV 95.4 MCH 30.2 MCHC 31.6 L RDW 13.1 Plt Count 585 H MPV 9.0 Immature Gran % (Auto) 1.8 H Neut % (Auto) 68.6 Lymph % (Auto) 18.0 L [place] % (Auto) 8.4 Eos % (Auto) 2.6 Baso % (Auto) 0.6 Lymph # (Auto) 1.54 [place] # (Auto) 0.7 H Eos # (Auto) 0.2 Baso # (Auto) 0.1 Abs Immat Gran (auto) 0.15 H Absolute Neuts (auto) 5.9 Absolute Nucleated RBC 0.000 Nucleated RBC % 0.0 Sodium 134 L Potassium 3.8 Chloride 108 H Carbon Dioxide 21 L Anion Gap 5 BUN 10 D Creatinine 0.88 Estim Creat Clear Calc 52 Estimated GFR > 60 Glucose 114 H Calcium 8.4 Urine Color Yellow Urine Appearance Clear Urine pH 7.0 Ur Specific [place] 1.014 Urine Protein Negative Urine Glucose (UA) Negative Urine Ketones Negative Ur Blood (Man) Negative Urine Nitrate Negative Urine Bilirubin Negative Urine Urobilinogen 1.0 Leukocyte Esterase Rfl Negative Discharge Plan Discharge Attending physician on discharge: Edna Andrade Consulting providers: Maxine Wolfe Discharging Clinician: Edna Andrade Anticipated Discharge Date/Time: 08/20/25 15:14 Patient Disposition: Home Activity: may shower Diet: low fiber Discharge Instructions: OK to shower. No soaking in a tub, pool, chirinos, or any other body of water for 2 weeks or until otherwise instructed by surgeon. No heavy lifting greater than 10-15 pounds for at least 6 weeks until otherwise instructed by Dr. Wolfe. Continue low fiber diet for 2 weeks. Packet attached detailing this. No driving while taking narcotic pain medication. Antibiotics sent to pharmacy. Please pick these up and take full course of them as prescribed. Try to get out of bed/chair every day and walk. If you notice any nausea/vomiting, increased pain, or any increased drainage, bleeding, or redness around incision or from stoma, please call our office at or go to the emergency department. Call our office to schedule a follow up with Dr. Wolfe in 1 week. Kinde will likely be removed at this time. Patient Instructions: Antibiotic Form, How to Stop Smoking (DC), Low Fiber Diet (DC) Patient Language: Kos[place] Stand Alone Forms: General Discharge Information, General Discharge Information Follow-up/Referrals: Maxine Wolfe MD [Physician, General Surgery] - 1 Week Referral Note: Call to schedule. Discharge Medications: New amoxicillin-pot clavulanate 875-125 mg tablet 1 tablet PO Q12H Qty: 12 0RF metronidazole 500 mg tablet 500 mg PO Q8H Qty: 18 0RF hydrocodone-acetaminophen 5-325 mg Tablet 1 tablet PO Q4H PRN (Reason: Pain Rated 4-6) Qty: 10 0RF metoprolol tartrate 25 mg Tablet 25 mg PO Q12HR Qty: 60 0RF Continued ondansetron 4 mg tablet,disintegrating 4 mg PO Q8H PRN (Reason: nausea and vomiting) Qty: 14 0RF Discontinued hydrocodone-acetaminophen 5-325 mg tablet 1 tablet PO Q12H PRN (Reason: pain) Qty: 10 0RF amoxicillin-pot clavulanate 875-125 mg tablet 1 tablet PO Q12H 7 Days Qty: 14 0RF Date of admission: 08/12/25 05:46 Primary Care Provider: PHYSICIAN,SPECIALIST EM[employer]ATIONS Admitting Provider: Shanelle Fuller Attending physician on admission: Shanelle Fuller Condition: Improved
== END 2025-08-20 15:38 | disposition home or self-care (01) | DRG 853 ==
LOC: ANHED 23:59 → ANH3MED 08-12 05:59
PROVIDERS: Internal Medicine; Nurse Practitioner; Nurse Practitioner Family; Surgery; Admitting Provider General Practice; Emergency Provider Emergency Medicine; Visit Provider Internal Medicine
PROC: 0D1N0Z4 Bypass Sigmoid Colon to Cutaneous, Open Approach (ICD-10-PCS; CPT 49000; principal; 2025-08-12 07:00)
DX: A41.9 Sepsis, unspecified organism (principal); K65.9 Peritonitis, unspecified; K57.20 Diverticulitis of large intestine with perforation and abscess without bleeding; K56.7 Ileus, unspecified; E44.0 Moderate protein-calorie malnutrition; T81.31XA Disruption of external operation (surgical) wound, not elsewhere classified, initial encounter; K91.89 Other postprocedural complications and disorders of digestive system; F10.90 Alcohol use, unspecified, uncomplicated; N39.498 Other specified urinary incontinence; R82.90 Unspecified abnormal findings in urine; R07.9 Chest pain, unspecified; F17.290 Nicotine dependence, other tobacco product, uncomplicated; Z90.49 Acquired absence of other specified parts of digestive tract; Z79.891 Long term (current) use of opiate analgesic; Z79.2 Long term (current) use of antibiotics; Z68.34 Body mass index [BMI] 34.0-34.9, adult
CPT/HCPCS: 36415; 71045; 74019; 74177; 80048; 80053; 80061; 81001; 81003; 82948; 83605; 83690; 83735; 83880; 84100; 84145; 84466; 84484; 85025; 85027; 85610; 86850; 86900; 86901; 87040; 88307; 93005; 96361; 96365; 96375; 96376; 97110; 97162; 97165; 97530; 97535; 99285; A9270; C1765; C8929; J0360; J0616; J1100; J1171; J1200; J1650; J1741; J1938; J2003; J2405; J2543; J2704; J2765; J3010; J3480; J7120; Q9957; Q9967

== ENCOUNTER 2025-09-14 08:22 | Inpatient (IN) | payer OTHER, SELFPAY ==
--- NOTE | ~2025-09-14 | XR_ITS ---
EXAMINATION: XR enema water soluble DATE: 09/16/2025 10:04 INDICATION: Assess Kinney's pouch post prior partial colectomy. TECHNIQUE: 2 fixed income manager radiographs were obtained. A catheter was inserted into the patient's rectum. Water-soluble contrast was infused by gravity. Fluoroscopic spot images and postevacuation conventional radiographs were obtained. Total of 17 fluoroscopic images and 3 overhead radiographs were obtained. Fluoroscopy exposure time was 0.3 minutes. Total DAP was 12.5 Gycm^2. COMPARISON: CT dated 09/14/2025 FINDINGS: Window Clerk images demonstrate cholecystectomy clips in right upper quadrant, left lower quadrant and colostomy and subtle suture line at the proximal margin of the Kinney's pouch projecting over the central pelvis. Couple phleboliths in the pelvis. No dilated loops of gas-filled bowel to suggest obstruction. Contrast fills the Kinney's pouch which extends most likely distal sigmoid colon. No evident fistulous communication or extraluminal leak. Smooth mucosal contour with no filling defects or diverticula. IMPRESSION: 1. Changes consistent with prior partial colectomy with left lower quadrant end colostomy and normal Kinney's pouch. Reviewed, dictated and finalized at location A.
--- NOTE | ~2025-09-14 | CT_ITS ---
CT abdomen pelvis w con Clinical History: lower abdominal pain, s/p colostomy and tic perf . Comparison: 08/17/2025 Technique: Axial images lung bases to symphysis pubis IV contrast information not listed in PACS Coronal, sagittal reformats CT images acquired with automatic exposure control for dose reduction DLP: 322 mGy-cm Findings: Lung bases: Bibasilar atelectasis. Visualized heart and pericardium: Unremarkable. Liver: Unremarkable. Gallbladder: Removed. Spleen: Unremarkable. Pancreas: Unremarkable. Adrenal glands: Unremarkable. Kidneys: Right kidney- No hydronephrosis. No renal stones. Small cyst. Left kidney- No hydronephrosis. No renal stones. Tiny hypodense focus too small to characterize. Distal esophagus/stomach: Unremarkable. Small bowel loops: Normal caliber and wall thickness. Colon: Leslee pouch. Left lower quadrant end colostomy. Diverticula. Pericolonic inflammatory change and colonic wall thickening near stoma. Nodes: No enlarged nodes. Peritoneum: No ascites. No free air. Urinary bladder: Unremarkable. Uterus: Unremarkable. Adnexa: No masses. Bones: No acute bony abnormality. Soft tissues: Breast implants. Aorta: No aneurysm or dissection. IVC: Unremarkable. Main portal vein/SMV/splenic vein: Patent. IMPRESSION: 1. Left lower quadrant diverticulitis along colostomy. Reviewed, dictated and finalized at location R.
--- OUTSIDE RECORDS SUMMARY | 2025-09-14 08:25 | XMS_ITS | Clinical Summary ---
Author Organization [facility] Health Address [address] [place] [address] Care Team Providers Care Floorwalker Name Role Phone Unavailable Primary Care Provider [...] Comments Blood Pressure 151/96 01/27/2023 12:35 PM PROBATION SUPERVISOR Pulse 92 01/27/2023 12:35 PM PROBATION SUPERVISOR Temperature - - Respiratory Rate - - Oxygen Saturation - - Inhaled Oxygen Concentration - - Weight 68 kg (150 lb) 01/27/2023 12:35 PM PROBATION SUPERVISOR Height 154.9 cm (5' 1) 01/27/2023 12:35 PM PROBATION SUPERVISOR Body Mass Index 28.34 01/27/2023 12:35 PM PROBATION SUPERVISOR Plan of Treatment Health Maintenance Due Date Last Done Comments Dental Prophylaxis 1965 Dental Oral Exam 07/31/2023 01/27/2023 Dental X-Ray: Bitewings 07/31/2023 01/27/2023 Dental X-Ray: Full Mouth 01/28/2026 01/27/2023 Dental X-Ray: Panoramic 01/28/2026 01/27/2023 Procedures Procedure Name Priority Date/Time Associated Diagnosis Comments PANORAMIC RADIOGRAPHIC IMAGE Routine 01/27/2023 11:30 AM PROBATION SUPERVISOR INTRAORAL - COMPREHENSIVE SERIES OF RADIOGRAPHIC IMAGES Routine 01/27/2023 11:30 AM PROBATION SUPERVISOR COMPREHENSIVE ORAL EVALUATION - NEW OR ESTABLISHED PATIENT Routine 01/27/2023 11:30 AM PROBATION SUPERVISOR from Last 3 Months or Most Recently Relevant to Health Maintenance Insurance [facility] [place] [id number]
--- OUTSIDE RECORDS SUMMARY | 2025-09-14 08:25 | XMS_ITS | Encounter Summary ---
Author Organization [facility] Health Address [address] [place] [address] Care Team Providers Care Business Administration Professor Name Role Phone Unavailable Primary Care Provider Unavailabl e Prior Encounters Date Type Department Care Team Description 01/27/2023 11:30 AM COUNTRY SALES MANAGER Office Visit [facility] [address] [place] [id number] Bobo Noe DDS Last Filed Vital Signs Vital Sign Reading Time Taken Comments Blood Pressure 151/96 01/27/2023 12:35 PM COUNTRY SALES MANAGER Pulse 92 01/27/2023 12:35 PM COUNTRY SALES MANAGER Temperature - - Respiratory Rate - - Oxygen Saturation - - Inhaled Oxygen Concentration - - Weight 68 kg (150 lb) 01/27/2023 12:35 PM COUNTRY SALES MANAGER Height 154.9 cm (5' 1) 01/27/2023 12:35 PM COUNTRY SALES MANAGER Body Mass Index 28.34 01/27/2023 12:35 PM COUNTRY SALES MANAGER Plan of Treatment Not on file Procedures Procedure Name Priority Date/Time Associated Diagnosis Comments INTRAORAL PHOTO Routine 01/27/2023 11:30 AM COUNTRY SALES MANAGER INTRAORAL PHOTO Routine 01/27/2023 11:30 AM COUNTRY SALES MANAGER INTRAORAL PHOTO Routine 01/27/2023 11:30 AM COUNTRY SALES MANAGER INTRAORAL PHOTO Routine 01/27/2023 11:30 AM COUNTRY SALES MANAGER PANORAMIC RADIOGRAPHIC IMAGE Routine 01/27/2023 11:30 AM COUNTRY SALES MANAGER INTRAORAL - COMPREHENSIVE SERIES OF RADIOGRAPHIC IMAGES Routine 01/27/2023 11:30 AM COUNTRY SALES MANAGER COMPREHENSIVE ORAL EVALUATION - NEW OR ESTABLISHED PATIENT Routine 01/27/2023 11:30 AM COUNTRY SALES MANAGER 30 MODL COMPOSITE FILLING Routine 2022 12:00 AM COUNTRY SALES MANAGER 31 O [place] FILLING Routine 01/27/2023 12:00 AM COUNTRY SALES MANAGER 20 O AM[place] FILLING Routine 01/27/2023 12:00 AM COUNTRY SALES MANAGER 19 O AMAL[place] FILLING Routine 01/27/2023 12:00 AM COUNTRY SALES MANAGER 18 O AMAL[place]AM FILLING Routine 01/27/2023 12:00 AM COUNTRY SALES MANAGER 15 O AMAL[place]AM FILLING Routine 01/27/2023 12:00 AM COUNTRY SALES MANAGER 14 LO AMALGAM FILLING Routine 01/27/2023 12:00 AM COUNTRY SALES MANAGER 13 O COMPOSITE FILLING Routine 12:00 AM COUNTRY SALES MANAGER 10 L COMPOSITE FILLING Routine 12:00 AM COUNTRY SALES MANAGER 4 O [place] FILLING Routine 01/27/2023 1 2:00 AM COUNTRY SALES MANAGER 3 LO AMALGAM FILLING Routine 01/27/2023 12:00 AM COUNTRY SALES MANAGER 2 O AMAL[place]AM FILLING Routine 01/27/2023 1 2:00 AM COUNTRY SALES MANAGER Visit Diagnoses Not on file Insurance [facility]
[2025-09-14 08:27] VITALS: BP 174/106; PULSE 90; RESP 18; TEMP 36.5; O2SAT 98
[2025-09-14 08:43] LABS: Hematocrit 43.6 % (37.0-47.0); Hemoglobin 14.1 g/dL (12.0-15.0); Immature Granulocyte Percent A 0.3 % (0-0.5); Lymphocytes Absolute Auto 2.07 K/mm3 (0.9-3.2); Mean Corpuscular HGB Conc 32.3 g/dl (32-36); Mean Corpuscular Hemoglobin 30.3 pg (26-34); Mean Corpuscular Volume 93.8 fl (80-100); Nucleated Red Blood Cells Absolute Auto 0.000 K/mm3 (0.0-0.012); Nucleated Red Blood Cells Perc 0.0 % (0.0-0.2); Platelet Count Result 286 k/mm3 (150-375); Red Blood Count 4.65 M/mm3 (4.2-5.4); White Blood Count 11.0 K/mm3 (4.5-10.0)
[2025-09-14 09:00] VITALS: BP 153/96; PULSE 81; RESP 18; O2SAT 98
[2025-09-14] MEDS: MORPHINE SULFATE (*CRX) 4 MG/ML INJ IV PUSH ×2 (09:13→11:23)
[2025-09-14] MEDS: SODIUM CHLORIDE 0.9% IV 1,000 ML 999 ML IV CONT (09:13)
[2025-09-14] MEDS: ONDANSETRON INJ 4 MG/2 ML VIAL IV PUSH (09:13)
[2025-09-14 09:26] LABS: Alanine Aminotransferase 23 U/L (6-35); Albumin Level 3.9 g/dL (3.5-5.1); Alkaline Phosphatase 84 U/L (38-126); Anion Gap 7 mmol/L (4-12); Aspartate Amino Transferase 27 U/L (14-36); Bilirubin,Total 0.6 mg/dL (0.2-1.3); Blood Urea Nitrogen 15 mg/dL (7-17); Calcium 8.7 mg/dL (8.4-10.2); Carbon Dioxide 20 mmol/L (22-30); Chloride 108 mmol/L (98-107); Estimated CRCL calculation 54 ml/min; Estimated Glomerular Filt Rate > 60; Glucose 97 mg/dL (65-110); Lipase 252 U/L (23-300); Potassium 3.9 mmol/L (3.4-5.0); Sodium 135 mmol/L (137-145); Total Protein 7.0 g/dL (6.3-8.2)
[2025-09-14 09:47] LABS: Add Urine Microscopic? YES; Appearance Urine Clear (Clear); Glucose Urine UA Negative (Negative); Leukocyte Esterase Ur Trace LEU/UL (Negative); Nitrate Urine Negative (Negative); Non Pathogenic Casts 0-2; Specific Grav Ur 1.012 (1.001-1.035)
--- NOTE | 2025-09-14 11:09 | ED_ITS ---
HPI - Abdominal Pain General Chief Complaint: Abdominal Pain Stated Complaint: abd pain, 08/12 ostomy surgery Time Seen by Provider: 09/14/25 08:26 History of Present Illness HPI narrative: Patient is a 60-year-old female with history of colostomy secondary to perforated diverticulitis who presents ER with abdominal pain. Worsening over last few days. Feels similar diverticulitis. She has noticed decreased output from colostomy. No fevers or chills or sweats. No chest pain or chest pressure. No vomiting. Related Data Allergies Allergy/AdvReac Type Severity Reaction Status Date / Time No Known Allergies Allergy Verified 09/14/25 08:35 Review of Systems 2 Review of Systems: All systems reviewed & are unremarkable except as noted in HPI and below Constitutional: Constitutional: Reports no additional constitutional complaints ENT: Reports system reviewed and no additional complaints, except as documented Cardiovascular: Cardiovascular: Reports no additional cardiovascular complaints Gastrointestinal: Gastrointestinal: Reports no additional gastrointestinal complaints Genitourinary: Genitourinary: Reports no additional female genitourinary complaints PMFSH Past Medical History Medical History Perforation of sigmoid colon due to diverticulitis Sepsis Overweight Smoker ETOH abuse Surgical History Surgical History History of colostomy Hx of tonsillectomy H/O laparoscopy Social History Social History Smoking packs per day: 1 Smoking cigarettes per day: 20.0 Years smoked: 25 Smoking pack-years: 25.00 Smoking status: Current every day smoker Tobacco type: e-cigarettes/vaping Alcohol intake: current Drinks per week: 3 Alcohol use details: every day drinker Substance use: never Lack of Transportation: No Lack of Food: Never True Current Housing: I Have Housing Concerned About Future Housing: No Difficulty Paying Gas/Electric Bills: No Difficulty Paying for Meds: No Currently Unemployed: No Education: High School Diploma/GED Difficulty w/ Childcare or Family Care: No Spiritual care concerns: No Exam 2 Narrative: GENERAL: Well-appearing, well-nourished, and in no acute distress. HEAD: Normocephalic, atraumatic. ENT: Mucous membranes moist. CHEST: Clear to auscultation. No respiratory distress. HEART: Regular rate and rhythm.Normal peripheral pulses. ABDOMEN: Soft, moderately tender around left lower quadrant and stoma. nondistended. EXTREMITIES: Normal range of motion. No edema. SKIN: Warm, dry, no rash. NEURO: Alert and oriented x3. PSYCH: Normal mood and affect. Course Course Emergency Course: General surgery consulted, Dr. Oneal Olsen. Admit to hospitalist service and started on IV antibiotics. Clear liquid diet appropriate. Vital Signs Vital signs: Vital Signs Temperature 97.7 F 09/14/25 08:27 Pulse Rate 90 09/14/25 08:27 Respiratory Rate 18 09/14/25 08:27 Blood Pressure 174/106 H 09/14/25 08:27 Pulse Oximetry 98 09/14/25 08:27 Oxygen Delivery Room Air 09/14/25 08:27 Temperature 97.7 F 09/14/25 08:27 Pulse Rate 75 09/14/25 12:46 Respiratory Rate 14 09/14/25 12:46 Blood Pressure 126/87 09/14/25 12:46 Pulse Oximetry 95 09/14/25 12:46 Oxygen Delivery Room Air 09/14/25 08:27 MDM - Abdominal Pain Differential Diagnosis Differential diagnosis: Likely acute appendicitis, constipation, diverticulitis, gastroenteritis and other (Bowel obstruction) Lab Data 09/14/25 08:37 09/14/25 09:10 Labs: Lab Results 09/14/25 09/14/25 09/14/25 Range/Units 08:37 09:10 09:35 WBC 11.0 H (4.5-10.0) K/mm3 RBC 4.65 (4.2-5.4) M/mm3 Hgb 14.1 D (12.0-15.0) g/dL Hct 43.6 (37.0-47.0) % MCV 93.8 (80-100) fl MCH 30.3 (26-34) pg MCHC 32.3 (32-36) g/dl RDW 12.8 (11.5-14.5) % Plt Count 286 D (150-375) k/mm3 MPV 9.5 (7.4-10.4) fl Immature Gran % (Auto) 0.3 (0-0.5) % Neut % (Auto) 70.1 (45.5-73.1) % Lymph % (Auto) 18.9 (18.3-44.2) % Baxter % (Auto) 8.3 (2.6-8.5) % Eos % (Auto) 1.9 (0-4.4) % Baso % (Auto) 0.5 (0.2-1.2) % Lymph # (Auto) 2.07 (0.9-3.2) K/mm3 Baxter # (Auto) 0.9 H (0.1-0.6) K/mm3 Eos # (Auto) 0.2 (0-0.3) K/mm3 Baso # (Auto) 0.1 (0.0-0.1) K/mm3 Abs Immat Gran (auto) 0.03 (0.00-0.031) K/mm3 Absolute Neuts (auto) 7.7 H (1.3-6.7) K/mm3 Absolute Nucleated RBC 0.000 (0.0-0.012) K/mm3 Nucleated RBC % 0.0 (0.0-0.2) % Sodium 135 L (137-145) mmol/L Potassium 3.9 (3.4-5.0) mmol/L Chloride 108 H (98-107) mmol/L Carbon Dioxide 20 L (22-30) mmol/L Anion Gap 7 (4-12) mmol/L BUN 15 D (7-17) mg/dL Creatinine 0.81 (0.7-1.0) mg/dL Estim Creat Clear Calc 54 ml/min Estimated GFR > 60 (59 - ) Glucose 97 (65-110) mg/dL Calcium 8.7 (8.4-10.2) mg/dL Total Bilirubin 0.6 (0.2-1.3) mg/dL AST 27 (14-36) U/L ALT 23 (6-35) U/L Alkaline Phosphatase 84 (38-126) U/L Total Protein 7.0 (6.3-8.2) g/dL Albumin 3.9 (3.5-5.1) g/dL Lipase 252 (23-300) U/L Urine Color Yellow (Yellow) Urine Appearance Clear (Clear) Urine pH 5.0 (5.0-9.0) Ur Specific [place] 1.012 (1.001-1.035) Urine Protein Negative (Negative) mg/dL Urine Glucose (UA) Negative (Negative) mg/dL Urine Ketones Negative (Negative) mg/dL Ur Blood (Man) Trace (Negative) Urine Nitrate Negative (Negative) Urine Bilirubin Negative (Negative) Urine Urobilinogen 0.2 (<2.0) mg/dL Leukocyte Esterase Rfl Trace H (Negative) LESLIE/UL Urine RBC 3-5 H (0-2) /hpf Urine WBC 0-5 (0-3) /hpf Ur Squamous Epith Cells None seen (Few) /hpf Urine Bacteria None seen /hpf Urine Casts 0-2 Imaging Data Radiologist's impression: ITS Impressions Abdomen/Pelvis CT 09/14/25 10:13 IMPRESSION: 1. Left lower quadrant diverticulitis along colostomy. Discharge Plan Discharge Clinical Impression: Diverticulitis Patient Disposition: Still a Patient Condition: Stable Patient Language: Cymro Prescriptions: No Action metronidazole 500 mg tablet 500 mg PO Q8H Qty: 18 0RF hydrocodone-acetaminophen 5-325 mg Tablet 1 tablet PO Q4H PRN (Reason: Pain Rated 4-6) Qty: 10 0RF metoprolol tartrate 25 mg Tablet 25 mg PO Q12HR Qty: 60 0RF sulfamethoxazole-trimethoprim [Bactrim DS] 800-160 mg tablet 1 tablet PO Q12H Qty: 14 0RF ciprofloxacin HCl 500 mg tablet 500 mg PO BID Qty: 10 0RF Follow-up/Referrals: PHYSICIAN,BILINGUAL MEDICAL ASSISTANT [Primary Care Provider, Internal Medicine]
[2025-09-14 11:24] VITALS: BP 164/102; PULSE 85; RESP 16; O2SAT 99
[2025-09-14] MEDS: PIPERACILLIN/TAZOBACTAM SOD 3.375 GM in SODIUM CHLORIDE 0.9% IV 50 ML 100 ML IVPB ×2 (12:19→17:24)
[2025-09-14 12:46] VITALS: BP 126/87; PULSE 75; RESP 14; O2SAT 95
--- NOTE | 2025-09-14 13:05 | P.HP_ITS ---
H&P: HPI History of Present Illness Date/Time: 09/14/25 13:05 Chief Complaint: Abdominal Pain Narrative: 60 y/o F with PMH of recurrent diverticulitis, diverticulitis with perforation, colostomy, osteoporosis, anxiety, and current vape use presents here with abdominal pain. The patient reports acute onset of abdominal pain yesterday, 09/13. She describes the abdominal pain as left lower quadrant, achy, and similar to her previous episodes of diverticulitis. She reports associated nausea and vomiting, however has not had any nausea/vomiting today. She reports decreased stool output from her ostomy. She denies changes in stoma appearance. She denies diarrhea, constipation, fever, chills, body aches. Of note, the patient reports she was recently diagnosed with a UTI approximately 1 week ago and has been on Keflex. She reports she only has 1-2 doses left. She denies any current urinary symptoms. Initial VS at presentation: 97.7? F, HR 90, R 18, 174/106, and 98% on RA. ED workup showed: WBC 11.0, hemoglobin 14.1, sodium 135, creatinine 0.81 and GFR >60, and UA showed trace leuk esterase and 3-[address] of the abdomen/pelvis showed left lower quadrant diverticulitis along colostomy. Review of Systems Review of Systems: All systems reviewed & are unremarkable except as noted in HPI and below PMFSH Past Medical History Medical History Anxiety Irritable bowel Osteoporosis Perforation of sigmoid colon due to diverticulitis Sepsis Overweight Smoker ETOH abuse Surgical History Surgical History History of hysterectomy History of cholecystectomy History of colostomy Hx of tonsillectomy H/O laparoscopy Social History Social History Smoking packs per day: 1 Smoking cigarettes per day: 20.0 Years smoked: 25 Smoking pack-years: 25.00 Smoking status: Never smoker Tobacco type: e-cigarettes/vaping Alcohol intake: former Drinks per week: 3 Alcohol use details: every day drinker Substance use: never Lack of Transportation: No Lack of Food: Never True Current Housing: I Have Housing Concerned About Future Housing: No Difficulty Paying Gas/Electric Bills: No Difficulty Paying for Meds: No Currently Unemployed: No Education: High School Diploma/GED Difficulty w/ Childcare or Family Care: No Spiritual care concerns: No Meds Home Medications and Allergies Home Medications ?Medication ?Instructions ?Recorded ?Confirmed ?Type hydrocodone 5 mg-acetaminophen 325 1 tablet PO Q4H PRN Pain Rated 4-6 08/20/25 09/14/25 Rx mg tablet #10 tabs metoprolol tartrate 25 mg tablet 25 mg PO Q12HR #60 ta bs 08/20/25 09/14/25 Rx ciprofloxacin HCl 500 mg tablet 500 mg PO BID #10 tabs 09/11/25 09/14/25 Rx Allergies Allergy/AdvReac Type Severity Reaction Status Date / Time No Known Allergies Allergy Verified 09/14/25 14:40 Vital Signs Vital Signs - 24 hr 09/14/25 08:27 09/14/25 09:00 09/14/25 11:24 Temperature 97.7 F Pulse Rate 90 81 85 Respiratory Rate 18 18 16 Blood Pressure 174/106 H 153/96 H 164/102 H Pulse Oximetry 98 98 99 Oxygen Delivery Room Air 09/14/25 12:46 Temperature Pulse Rate 75 Respiratory Rate 14 Blood Pressure 126/87 Pulse Oximetry 95 Oxygen Delivery Exam Const: General: comfortable and no acute distress Other: , female, ill-appearing HENMT: Face/Nose/Sinus: Normal nares present Mouth: Yes dry mucous membranes Eyes: General: appearance normal, both eyes and all related structures Sclera: sclerae normal Pupils: Equal, round and reactive pupils present EOM: EOMs intact bilaterally Resp: Effort & Inspection: normal respiratory effort Auscultation: clear to auscultation bilaterally Cardio: Rate: regular rate Rhythm: regular rhythm Other: S1-S2 present without murmur, rub, ectopy GI: Other: Abdomen soft and nondistended. Colostomy present, stoma pink and moist. Output green/brown, soft paste like. Tenderness in the left lower quadrant. Normoactive bowel sounds in all quadrants Skin: General skin exam: normal color and no rashes or lesions noted Wounds: no wounds Neuro: Speech: normal speech Motor exam (neuro): 5/5 motor strength present throughout Sensory Exam: normal sensation Other: A&O x4 Extrem: General: normal to inspection Psych: Mental Status: mental status grossly normal Affect: normal affect Other: Good insight and judgment. H&P: Results Labs Labs: Short CBC 09/14/25 Range/Units 08:37 WBC 11.0 H (4.5-10.0) K/mm3 Hgb 14.1 D (12.0-15.0) g/dL Hct 43.6 (37.0-47.0) % Plt Count 286 D (150-375) k/mm3 BMP 09/14/25 09:10 Sodium 135 L Potassium 3.9 Chloride 108 H Carbon Dioxide 20 L BUN 15 D Creatinine 0.81 Glucose 97 Calcium 8.7 Liver Function 09/14/25 Range/Units 09:10 Total Bilirubin 0.6 (0.2-1.3) mg/dL AST 27 (14-36) U/L ALT 23 (6-35) U/L Alkaline Phosphatase 84 (38-126) U/L Albumin 3.9 (3.5-5.1) g/dL Urine 09/14/25 Range/Units 09:35 Urine Color Yellow (Yellow) Urine Appearance Clear (Clear) Urine pH 5.0 (5.0-9.0) Ur Specific [place] 1.012 (1.001-1.035) Urine Protein Negative (Negative) mg/dL Urine Glucose (UA) Negative (Negative) mg/dL Assessment and Plan Assessment and plan (1) Diverticulitis: Code(s): K57.92 - Diverticulitis of intestine, part unspecified, without perforation or abscess without bleeding Status: Acute Assessment and Plan: The patient has a history of diverticulitis. Most recent episode in July of 2025 and was admitted from 08/10/2025 to. Initial imaging showed acute uncomplicated diverticulitis. However, shortly after admission the patient was found to have perforated sigmoid diverticulitis that was confirmed on CT on 08/12. She underwent an exploratory laparotomy, resection of the perforated sigmoid diverticulitis, and creation of end ileostomy on 08/12. Patient later developed an ileus during her stay which was treated with NG tube decompression and bowel rest. Returning with abdominal pain, nausea, and vomiting with decreased output from her ostomy. - CT abd/pelvis: Left lower quadrant diverticulitis along colostomy. - general surgery consulted >> no current surgical concerns - started on Zosyn on 09/14 - IV fluids: 1L bolus, now on 100 mL/hr x1L - clear liquid diet - pain medication prn - daily clinical reassessment for improvement Plan Diet: Clear liquid GI Prophylaxis: Ppi IV DVT Prophylaxis: SCDs IV fluids: 1L bolus -> 100 mL/hr x1L Lines/Tubes: Peripheral IV Code Status: Full code Quality VTE Prophylaxis VTE prophylaxis: mechanical ordered Hospitalist MIPS Advance Care Plan I have confirmed that the patient's Advanced Care Plan is present, code status is documented, or surrogate decision maker is listed in patient medical record.: Yes Medication Reconciliation I have utilized all available resources to obtain, update and review the patients current medications (includes all prescriptions, OTC, herbals, cannabis, and nutritional supplements).: Yes
[2025-09-14 13:38] VITALS: BP 129/89; PULSE 81; RESP 16; O2SAT 97
--- NOTE | 2025-09-14 13:41 | P.CONGS_ITS ---
Assessment and Plan Assessment and plan (1) Diverticulitis: Code(s): K57.92 - Diverticulitis of intestine, part unspecified, without perforation or abscess without bleeding <Frandy RacheleJose Segovia, DO - Last Filed: 09/14/25 13:52> Status: Acute <Frandy JeffreyJose Segovia, DO - Last Filed: 09/14/25 13:52> Assessment and Plan: - I reviewed the CT scan and discussed the results with the patient. She does have acute uncomplicated diverticulitis just below the fascia at her stoma. There is no evidence of perforation, free fluid, or abscess development. The patient is focally tender around her ostomy. She is non peritoneal. Her vital signs are stable. She has a slight leukocytosis with a WBC of 11. Given these findings, no acute surgical intervention is indicated at this time. With her recent history, General surgery was consulted for evaluation. Plan - admitted to [facility] for [facility] - IV ABX - no acute surgical intervention - remainder cares per primary team - surgery will follow A&P discussed with Dr. Henry <Frandy Segovia, DO - Last Filed: 09/14/25 13:52> History of Present Illness Consult details Consult date: 09/14/25 <Frandy Segovia DO - Last Filed: 09/14/25 13:52> 09/14/25 <Marcio Henry, DO - Last Filed: 09/16/25 12:16> Reason for consult: other (diverticulitis) <Marcio Henry, DO - Last Filed: 09/16/25 12:16> Requesting physician: Nicolas Segovia MD <Marcio Henry, DO - Last Filed: 09/16/25 12:16> Narrative: Patient is a 60-year-old female who is well known to the General surgery Service after she underwent a Leslee's procedure on 08/12/2025 for a perforated diverticulitis. The patient was discharged home on 08/20 and was seen in clinic on 08/27. She had been doing well up until yesterday. The patient reports yesterday she began having left lower quadrant abdominal pain around her ostomy. She endorses nausea and vomiting. She states she had a UTI over the past week was on antibiotics for that, she endorses subjective fevers and chills that she attributed to her UTI. Given her abdominal pain, she did present to the emergency department. The patient had a CT abdomen and pelvis that showed a diverticulitis without evidence of perforation at the stoma. The patient has a small amount of stool in her ostomy, as well as air in her ostomy bag. Her ostomy is pink and well appearing. Her abdomen is focally tender to palpation on the cephalad portion of her ostomy and slightly laterally. the remainder of her abdomen is soft, nontender, nondistended, and non peritoneal. Her vital signs are stable. She is afebrile. She reports having intermittent constipation and using milk of magnesia for constipation episodes. <Frandy Segovia DO - Last Filed: 09/14/25 13:52> Review of Systems 2 Review of Systems: All systems reviewed & are unremarkable except as noted in HPI and below <Frandy Segovia DO - Last Filed: 09/14/25 13:52> Eyes: Eyes: Denies change in vision <Marcio Henry DO - Last Filed: 09/16/25 12:16> ENT: Denies hearing loss, Denies neck pain and Denies sore throat <Marcio Henry DO - Last Filed: 09/16/25 12:16> Cardiovascular: Cardiovascular: Denies chest pain and Denies dyspnea < Marico Henry DO - Last Filed: 09/16/25 12:16> Respiratory: Respiratory: Denies cough, Denies dyspnea and Denies wheezing <Marcio Henry DO - Last Filed: 09/16/25 12:16> Gastrointestinal: Gastrointestinal: Reports as per HPI <Marcio Henry DO - Last Filed: 09/16/25 12:16> Genitourinary: Genitourinary: Denies hematuria and Denies dysuria <Marcio Henry DO - Last Filed: 09/16/25 12:16> Musculoskeletal: Musculoskeletal: Denies arthralgias, Denies joint swelling and Denies neck pain <Marcio Henry DO - Last Filed: 09/16/25 12:16> Allergic/Immunologic: Allergic/Immunologic: Denies wheezing <Marcio Henry DO - Last Filed: 09/16/25 12:16> [facility] Past Medical History Medical History: Medical History Anxiety Irritable bowel Osteoporosis Perforation of sigmoid colon due to diverticulitis Sepsis Overweight Smoker ETOH abuse <Frandy Segovia, DO - Last Filed: 09/14/25 13:52> Surgical History Surgical History: Surgical History History of hysterectomy History of cholecystectomy History of colostomy Hx of tonsillectomy H/O laparoscopy <Frandy Segovia, DO - Last Filed: 09/14/25 13:52> Social History Social History: Social History Smoking packs per day: 1 Smoking cigarettes per day: 20.0 Years smoked: 25 Smoking pack-years: 25.00 Smoking status: Never smoker Tobacco type: e-cigarettes/vaping Alcohol intake: former Drinks per week: 3 Alcohol use details: every day drinker Substance use: never Lack of Transportation: No Lack of Food: Never True Current Housing: I Have Housing Concerned About Future Housing: No Difficulty Paying Gas/Electric Bills: No Difficulty Paying for Meds: No Currently Unemployed: No Education: High School Diploma/GED Difficulty w/ Childcare or Family Care: No Spiritual care concerns: No <Frandy Segovia, DO - Last Filed: 09/14/25 13:52> Meds Home Medications and Allergies Home medications: Home Medications ?Medication ?Instructions ?Recorded ?Confirmed ?Type hydrocodone 5 mg-acetaminophen 325 1 tablet PO Q4H PRN Pain Rated 4-6 08/20/25 09/14/25 Rx mg tablet #10 tabs metoprolol tartrate 25 mg tablet 25 mg PO Q12HR #60 ta bs 08/20/25 09/14/25 Rx ciprofloxacin HCl 500 mg tablet 500 mg PO BID #10 tabs 09/11/25 09/14/25 Rx <Frandy Segovia, DO - Last Filed: 09/14/25 13:52> Allergies/Adverse reactions: Allergies Allergy/AdvReac Type Severity Reaction Status Date / Time No Known Allergies Allergy Verified 09/14/25 14:40 <Frandy Segovia, DO - Last Filed: 09/14/25 13:52> Vital Signs Vital Signs - 24 hr 09/14/25 08:27 09/14/25 09:00 09/14/25 11:24 Temperature 97.7 F Pulse Rate 90 81 85 Respiratory Rate 18 18 16 Blood Pressure 174/106 H 153/96 H 164/102 H Pulse Oximetry 98 98 99 Oxygen Delivery Room Air 09/14/25 12:46 09/14/25 13:38 Temperature Pulse Rate 75 81 Respiratory Rate 14 16 Blood Pressure 126/87 129/89 Pulse Oximetry 95 97 Oxygen Delivery <Frandy Vy Segovia, DO - Last Filed: 09/14/25 13:52> Exam 2 Narrative: General: Awake, alert, no acute distress HEENT: NC/AT, mucous membranes pink and moist Neck: No masses or swelling, JVD Heart: Regular rate, HDS Lungs: Symmetric expansion, no IWOB, on RA Abdomen: soft, TTP around ostomy on cephalad and lateral portion, ND, non peritoneal, ostomy pink with small amount of stool output and air in ostomy bag Extremities: Moves all, normal inspection Psych: normal affect, normal mood, normal judgment <Frandy RacheleJose Luca, DO - Last Filed: 09/14/25 13:52> Results Labs Result diagrams: 09/16/25 04:26 09/16/25 04:26 <Frandy Vy Segovia, DO - Last Filed: 09/14/25 13:52> Labs: Abnormal lab results 09/14/25 09/14/25 09/14/25 Range/Units 08:37 09:10 09:35 WBC 11.0 H (4.5-10.0) K/mm3 [place] # (Auto) 0.9 H (0.1-0.6) K/mm3 Absolute Neuts (auto) 7.7 H (1.3-6.7) K/mm3 Sodium 135 L (137-145) mmol/L Chloride 108 H (98-107) mmol/L Carbon Dioxide 20 L (22-30) mmol/L Leukocyte Esterase Rfl Trace H (Negative) LESLIE/UL Urine RBC 3-5 H (0-2) /hpf Diabetes panel 09/14/25 Range/Units 09:10 Sodium 135 L (137-145) mmol/L Potassium 3.9 (3.4-5.0) mmol/L Chloride 108 H (98-107) mmol/L Carbon Dioxide 20 L (22-30) mmol/L BUN 15 D (7-17) mg/dL Creatinine 0.81 (0.7-1.0) mg/dL Glucose 97 (65-110) mg/dL Calcium 8.7 (8.4-10.2) mg/dL AST 27 (14-36) U/L ALT 23 (6-35) U/L Alkaline Phosphatase 84 (38-126) U/L Total Protein 7.0 (6.3-8.2) g/dL Albumin 3.9 (3.5-5.1) g/dL Calcium panel 09/14/25 Range/Units 09:10 Calcium 8.7 (8.4-10.2) mg/dL Albumin 3.9 (3.5-5.1) g/dL Pituitary panel 09/14/25 Range/Units 09:10 Sodium 135 L (137-145) mmol/L Potassium 3.9 (3.4-5.0) mmol/L Chloride 108 H (98-107) mmol/L Carbon Dioxide 20 L (22-30) mmol/L BUN 15 D (7-17) mg/dL Creatinine 0.81 (0.7-1.0) mg/dL Glucose 97 (65-110) mg/dL Calcium 8.7 (8.4-10.2) mg/dL Adrenal panel 09/14/25 Range/Units 09:10 Sodium 135 L (137-145) mmol/L Potassium 3.9 (3.4-5.0) mmol/L Chloride 108 H (98-107) mmol/L Carbon Dioxide 20 L (22-30) mmol/L BUN 15 D (7-17) mg/dL Creatinine 0.81 (0.7-1.0) mg/dL Glucose 97 (65-110) mg/dL Calcium 8.7 (8.4-10.2) mg/dL Total Bilirubin 0.6 (0.2-1.3) mg/dL AST 27 (14-36) U/L ALT 23 (6-35) U/L Alkaline Phosphatase 84 (38-126) U/L Total Protein 7.0 (6.3-8.2) g/dL Albumin 3.9 (3.5-5.1) g/dL All other labs normal. <Frandy Segovia, DO - Last Filed: 09/14/25 13:52> Imaging Additional studies: ITS Impressions Abdomen/Pelvis CT 09/14/25 10:13 IMPRESSION: 1. Left lower quadrant diverticulitis along colostomy. <Marcio Henry, DO - Last Filed: 09/16/25 12:16>
[2025-09-14 14:13] VITALS: BMI 28.9
[2025-09-14] MEDS: LACTATED RINGERS 1,000 ML 100 ML IV CONT (14:52)
--- NOTE | 2025-09-14 15:51 | ADMGEN ---
This patient, Nanci Linder, was admitted to Medical Room 250-01. Patient/family oriented to hospital policies and general routines including ID bracelet, bed and alarms, visiting hours, pain management, procedures, bathroom and other care routines, personal items, smoking policy, room service/diet, and visiting hours. Information on how to activate the Rapid Response Team has been discussed. Patient/Family are encouraged to report perceived risks to care and to ask questions if they do not understand what they are told or what they should do.
[2025-09-14 20:34] VITALS: BP 129/69; PULSE 71; RESP 18; TEMP 36.4; O2SAT 99
[2025-09-14] MEDS: MORPHINE SULFATE (*CRX) 4 MG/ML INJ 2 MG IV PUSH (22:18)
[2025-09-15] MEDS: PIPERACILLIN/TAZOBACTAM SOD 3.375 GM in SODIUM CHLORIDE 0.9% IV 50 ML 100 ML IVPB ×5 (00:35→23:47)
[2025-09-15 03:49] VITALS: BP 100/61; PULSE 73; RESP 20; TEMP 36.5; O2SAT 95
[2025-09-15 04:43] LABS: Hematocrit 35.6 % (37.0-47.0); Hemoglobin 11.3 g/dL (12.0-15.0); Immature Granulocyte Percent A 0.3 % (0-0.5); Lymphocytes Absolute Auto 1.35 K/mm3 (0.9-3.2); Mean Corpuscular HGB Conc 31.7 g/dl (32-36); Mean Corpuscular Hemoglobin 30.3 pg (26-34); Mean Corpuscular Volume 95.4 fl (80-100); Nucleated Red Blood Cells Absolute Auto 0.000 K/mm3 (0.0-0.012); Nucleated Red Blood Cells Perc 0.0 % (0.0-0.2); Platelet Count Result 236 k/mm3 (150-375); Red Blood Count 3.73 M/mm3 (4.2-5.4); White Blood Count 6.5 K/mm3 (4.5-10.0)
[2025-09-15 05:19] LABS: Alanine Aminotransferase 41 U/L (6-35); Albumin Level 3.3 g/dL (3.5-5.1); Alkaline Phosphatase 78 U/L (38-126); Anion Gap 5 mmol/L (4-12); Aspartate Amino Transferase 53 U/L (14-36); Bilirubin,Total 0.7 mg/dL (0.2-1.3); Blood Urea Nitrogen 7 mg/dL (7-17); Calcium 8.7 mg/dL (8.4-10.2); Carbon Dioxide 23 mmol/L (22-30); Chloride 107 mmol/L (98-107); Estimated CRCL calculation 49 ml/min; Estimated Glomerular Filt Rate > 60; Glucose 93 mg/dL (65-110); Magnesium 1.9 mg/dL (1.6-2.3); Potassium 4.0 mmol/L (3.4-5.0); Sodium 135 mmol/L (137-145); Total Protein 5.8 g/dL (6.3-8.2)
[2025-09-15] MEDS: PANTOPRAZOLE SODIUM IV 40 MG VIAL IV PUSH (08:49)
--- NOTE | 2025-09-15 09:21 | P.PNGS_ITS ---
Progress Note: A&P Assessment and Plan (1) Diverticulitis: Code(s): K57.92 - Diverticulitis of intestine, part unspecified, without perforation or abscess without bleeding Status: Acute Assessment and Plan: * Uncomplicated diverticulitis just below the fascia at her stoma without perforation or abscess. Improving with antibiotic treatment. * WBC count normalized. Pain and tenderness still localized around her ostomy. Starting to pas flatus through ostomy. * Continue IV Zosyn * Consider advancing to full liquids Plan I have discussed the patient's case and plan of care with Dr. Henry. Subjective Subjective Date/Time Seen: 09/15/25 09:21 Patient reports: no new complaints, still having pain, voiding w/o difficulty, flatus, no bowel movement and afebrile Interval history: Patient still having left-sided abdominal pain unchanged from yesterday. Pain is around her ostomy. She has not had any stool from her ostomy since Monday, 3 days ago, but finally noticed passing flatus through her ostomy last night. She has burped her bag this morning and already had more gas passing into the bag. WBC normal. She is concerned she is not drinking much and still has some nausea. No vomiting. She reports only drinking about 300 cc of water and sipping on the clear liquid diet. No other complaints at this time. Exam Const: General: comfortable and no acute distress GI: Inspection: non-distended and scar (midline scar) GI Palp: Yes Soft to palpation, Yes Tenderness to palpation present (GI) (mild diffuse tenderness with more focal tenderness around her colostomy), No Guarding due to palpation present (GI) and No Rebound tenderness present Auscultation: normal bowel sounds Other: Left-sided colostomy with small amount of soft stool in the bag and gas in the bag. Two-piece appliance with the top removed and the ostomy is pink and healthy. Objective Data Vital Signs Vital Signs: Vital Signs - 24 hr 09/14/25 11:24 09/14/25 12:46 09/14/25 13:38 Temperature Pulse Rate 85 75 81 Respiratory Rate 16 14 16 Blood Pressure 164/102 H 126/87 129/89 Pulse Oximetry 99 95 97 Oxygen Delivery 09/14/25 20:00 09/14/25 20:34 09/15/25 03:49 Temperature 97.6 F 97.7 F Pulse Rate 71 73 Respiratory Rate 18 20 Blood Pressure 129/69 100/61 Pulse Oximetry 99 95 Oxygen Delivery Room Air Intake/Output Intake/Output: Intake & Output 09/12/25 09/13/25 09/14/25 09/15/25 23:59 23:59 23:59 23:59 Intake Total 2680 490 Output Total 2 Balance 2680 488 Meds/Results Medications: Active Medications Generic Name Dose Route Start Last Admin Trade Name Freq PRN Reason Stop Dose Admin Acetaminophen 650 mg 09/14/25 12:34 Acetaminophen 325 Mg Tablet PO Q4H PRN Mild Pain (1-3) or Fever Hydrocodone Bitart/Acetaminophen 1 tab 09/14/25 12:34 Hydrocodone/Acetaminophen (*Crx) 5-325 Mg Tablet PO Q4H PRN Pain Rated 4-6 Piperacillin Sod/Tazobactam 50 mls @ 100 mls/hr 09/14/25 18:00 09/15/25 05:59 Sod 3.375 gm/ Sodium Chloride IVPB Infused Q6H ARSLAN Infusion Morphine Sulfate 2 mg 09/14/25 12:34 09/14/25 22:18 Morphine Sulfate (*Crx) 4 Mg/Ml Inj IV PUSH 2 mg Q2H PRN Administration Pain Rated 7-10 Ondansetron HCl 4 mg 09/14/25 12:34 Ondansetron Inj 4 Mg/2 Ml Vial IV PUSH Q4H PRN Nausea Pantoprazole Sodium 40 mg 09/15/25 09:00 09/15/25 08:49 Pantoprazole Sodium Iv 40 Mg Vial IV PUSH 40 mg QAM ARSLAN Administration Radiology Results: ITS Impressions Abdomen/Pelvis CT 09/14/25 10:13 IMPRESSION: 1. Left lower quadrant diverticulitis along colostomy. Labs Labs: Laboratory Results - last 24 hr 09/14/25 09/14/25 09/15/25 09:10 09:35 04:23 WBC 6.5 RBC 3.73 L Hgb 11.3 L Hct 35.6 L MCV 95.4 MCH 30.3 MCHC 31.7 L RDW 12.8 Plt Count 236 MPV 9.4 Immature Gran % (Auto) 0.3 Neut % (Auto) 65.3 Lymph % (Auto) 20.8 [place] % (Auto) 9.6 H Eos % (Auto) 3.4 Baso % (Auto) 0.6 Lymph # (Auto) 1.35 [place] # (Auto) 0.6 Eos # (Auto) 0.2 Baso # (Auto) 0.0 Abs Immat Gran (auto) 0.02 Absolute Neuts (auto) 4.2 Absolute Nucleated RBC 0.000 Nucleated RBC % 0.0 Sodium 135 L 135 L Potassium 3.9 4.0 Chloride 108 H 107 Carbon Dioxide 20 L 23 Anion Gap 7 5 BUN 15 D 7 D Creatinine 0.81 0.89 Estim Creat Clear Calc 54 49 Estimated GFR > 60 > 60 Glucose 97 93 Calcium 8.7 8.7 Magnesium 1.9 Total Bilirubin 0.6 0.7 AST 27 53 H ALT 23 41 H Alkaline Phosphatase 84 78 Total Protein 7.0 5.8 L Albumin 3.9 3.3 L Lipase 252 Urine Color Yellow Urine Appearance Clear Urine pH 5.0 Ur Specific [place] 1.012 Urine Protein Negative Urine Glucose (UA) Negative Urine Ketones Negative Ur Blood (Man) Trace Urine Nitrate Negative Urine Bilirubin Negative Urine Urobilinogen 0.2 Leukocyte Esterase Rfl Trace H Urine RBC 3-5 H Urine WBC 0-5 Ur Squamous Epith Cells None seen Urine Bacteria None seen Urine Casts 0-2
[2025-09-15] MEDS: MORPHINE SULFATE (*CRX) 4 MG/ML INJ 2 MG IV PUSH ×2 (09:30→21:39)
[2025-09-15] MEDS: SODIUM CHLORIDE 0.9% IV 1,000 ML 60 ML IV CONT (09:30)
[2025-09-15 13:26] VITALS: BP 117/72; PULSE 69; RESP 16; TEMP 37; O2SAT 98
--- NOTE | 2025-09-15 15:09 | PM.IMPN ---
Progress Note: A&P Assessment and Plan (1) Diverticulitis: Code(s): K57.92 - Diverticulitis of intestine, part unspecified, without perforation or abscess without bleeding Status: Acute Assessment and Plan: The patient has a history of diverticulitis. Most recent episode in July of 2025 and was admitted from 08/10/2025 to. Initial imaging showed acute uncomplicated diverticulitis. However, shortly after admission the patient was found to have perforated sigmoid diverticulitis that was confirmed on CT on 08/12. She underwent an exploratory laparotomy, resection of the perforated sigmoid diverticulitis, and creation of end ileostomy on 08/12. Patient later developed an ileus during her stay which was treated with NG tube decompression and bowel rest. Returning with abdominal pain, nausea, and vomiting with decreased output from her ostomy. - CT abd/pelvis: Left lower quadrant diverticulitis along colostomy. - general surgery consulted >> no current surgical concerns - started on Zosyn on 09/14 - IV fluids: 1L bolus, now on 100 mL/hr x1L - clear liquid diet - pain medication prn - daily clinical reassessment for improvement Plan patient with history of abdominal surgery and has ostomy, patient is found to have diverticulitis, seen by surgery service patient clinical symptoms are improving as patient is passing gas, and pain has improved, most likely will not need any surgical intervention, will monitor. Diet: Clear liquid GI Prophylaxis: Ppi IV DVT Prophylaxis: SCDs IV fluids: 1L bolus -> 100 mL/hr x1L Lines/Tubes: Peripheral IV Code Status: Full code Subjective Date/time seen: 09/15/25 15:09 Interval history: Abdominal Pain H&P-Narrative: 60 y/o F with PMH of recurrent diverticulitis, diverticulitis with perforation, colostomy, osteoporosis, anxiety, and current vape use presents here with abdominal pain. The patient reports acute onset of abdominal pain yesterday, 09/13. She describes the abdominal pain as left lower quadrant, achy, and similar to her previous episodes of diverticulitis. She reports associated nausea and vomiting, however has not had any nausea/vomiting today. She reports decreased stool output from her ostomy. She denies changes in stoma appearance. She denies diarrhea, constipation, fever, chills, body aches. Of note, the patient reports she was recently diagnosed with a UTI approximately 1 week ago and has been on Keflex. She reports she only has 1-2 doses left. She denies any current urinary symptoms. Initial VS at presentation: 97.7? F, HR 90, R 18, 174/106, and 98% on RA. ED workup showed: WBC 11.0, hemoglobin 14.1, sodium 135, creatinine 0.81 and GFR >60, and UA showed trace leuk esterase and 3-[address] of the abdomen/pelvis showed left lower quadrant diverticulitis along colostomy. patient with history of abdominal surgery and has ostomy, patient is found to have diverticulitis, seen by surgery service patient clinical symptoms are improving as patient is passing gas, and pain has improved, most likely will not need any surgical intervention, will monitor. Review of Systems Review of Systems: All systems reviewed & are unremarkable except as noted in HPI and below Exam Narrative: Patient is comfortable, NAD HEENT: eyes are clear and none icteric LUNGS:CTA HEART: RR S1S2 ABD: BS+, Soft and nontender Lower extremities: no edema SKIN: nonjaundiced Neuro: grossly intact. Objective Data Vital Signs Vital Signs: Vital Signs - 24 hr 09/14/25 20:00 09/14/25 20:34 09/15/25 03:49 Temperature 36.4 C 36.5 C Pulse Rate 71 73 Respiratory Rate 18 20 Blood Pressure 129/69 100/61 Pulse Oximetry 99 95 Oxygen Delivery Room Air 09/15/25 08:00 09/15/25 13:26 Temperature 37.0 C Pulse Rate 69 Respiratory Rate 16 Blood Pressure 117/72 Pulse Oximetry 98 Oxygen Delivery Room Air Intake/Output Intake/Output: Intake & Output 09/12/25 09/13/25 09/14/25 09/15/25 23:59 23:59 23:59 23:59 Intake Total 2680 1210 Output Total 2 Balance 2680 1208 Meds/Results Medications: Active Medications Generic Name Dose Route Start Last Admin Trade Name Freq PRN Reason Stop Dose Admin Acetaminophen 650 mg 09/14/25 12:34 Acetaminophen 325 Mg Tablet PO Q4H PRN Mild Pain (1-3) or Fever Hydrocodone Bitart/Acetaminophen 1 tab 09/14/25 12:34 Hydrocodone/Acetaminophen (*Crx) 5-325 Mg Tablet PO Q4H PRN Pain Rated 4-6 Piperacillin Sod/Tazobactam 50 mls @ 100 mls/hr 09/14/25 18:00 09/15/25 12:08 Sod 3.375 gm/ Sodium Chloride IVPB 100 mls/hr Q6H ARSLAN Administration Sodium Chloride 1,000 mls @ 60 mls/hr 09/15/25 09:25 09/15/25 09:30 Normal Saline Iv IV CONT 60 mls/hr .[id number] ARSLAN Administration Morphine Sulfate 2 mg 09/14/25 12:34 09/15/25 09:30 Morphine Sulfate (*Crx) 4 Mg/Ml Inj IV PUSH 2 mg Q2H PRN Administration Pain Rated 7-10 Ondansetron HCl 4 mg 09/14/25 12:34 Ondansetron Inj 4 Mg/2 Ml Vial IV PUSH Q4H PRN Nausea Pantoprazole Sodium 40 mg 09/15/25 09:00 09/15/25 08:49 Pantoprazole Sodium Iv 40 Mg Vial IV PUSH 40 mg QAM ARSLAN Administration Radiology Results: ITS Impressions Abdomen/Pelvis CT 09/14/25 10:13 IMPRESSION: 1. Left lower quadrant diverticulitis along colostomy. Labs Labs: Laboratory Results - last 24 hr 09/15/25 04:23 WBC 6.5 RBC 3.73 L Hgb 11.3 L Hct 35.6 L MCV 95.4 MCH 30.3 MCHC 31.7 L RDW 12.8 Plt Count 236 MPV 9.4 Immature Gran % (Auto) 0.3 Neut % (Auto) 65.3 Lymph % (Auto) 20.8 [place] % (Auto) 9.6 H Eos % (Auto) 3.4 Baso % (Auto) 0.6 Lymph # (Auto) 1.35 [place] # (Auto) 0.6 Eos # (Auto) 0.2 Baso # (Auto) 0.0 Abs Immat Gran (auto) 0.02 Absolute Neuts (auto) 4.2 Absolute Nucleated RBC 0.000 Nucleated RBC % 0.0 Sodium 135 L Potassium 4.0 Chloride 107 Carbon Dioxide 23 Anion Gap 5 BUN 7 D Creatinine 0.89 Estim Creat Clear Calc 49 Estimated GFR > 60 Glucose 93 Calcium 8.7 Magnesium 1.9 Total Bilirubin 0.7 AST 53 H ALT 41 H Alkaline Phosphatase 78 Total Protein 5.8 L Albumin 3.3 L Quality VTE Prophylaxis VTE prophylaxis: mechanical ordered
[2025-09-15 20:13] VITALS: BP 152/87; PULSE 85; RESP 20; TEMP 36.5; O2SAT 100
[2025-09-16] MEDS: SODIUM CHLORIDE 0.9% IV 1,000 ML 60 ML IV CONT ×2 (02:04→21:35)
[2025-09-16 04:02] VITALS: BP 122/77; PULSE 81; RESP 20; TEMP 36.3; O2SAT 95
[2025-09-16 04:47] LABS: Hematocrit 38.2 % (37.0-47.0); Hemoglobin 12.1 g/dL (12.0-15.0); Mean Corpuscular HGB Conc 31.7 g/dl (32-36); Mean Corpuscular Hemoglobin 30.2 pg (26-34); Mean Corpuscular Volume 95.3 fl (80-100); Platelet Count Result 273 k/mm3 (150-375); Red Blood Count 4.01 M/mm3 (4.2-5.4); White Blood Count 7.2 K/mm3 (4.5-10.0)
[2025-09-16] MEDS: MORPHINE SULFATE (*CRX) 4 MG/ML INJ 2 MG IV PUSH ×3 (05:13→20:46)
[2025-09-16] MEDS: PIPERACILLIN/TAZOBACTAM SOD 3.375 GM in SODIUM CHLORIDE 0.9% IV 50 ML 100 ML IVPB ×3 (05:21→17:11)
[2025-09-16 05:22] LABS: Anion Gap 6 mmol/L (4-12); Blood Urea Nitrogen 4 mg/dL (7-17); Calcium 9.2 mg/dL (8.4-10.2); Carbon Dioxide 26 mmol/L (22-30); Chloride 107 mmol/L (98-107); Estimated CRCL calculation 50 ml/min; Estimated Glomerular Filt Rate > 60; Glucose 96 mg/dL (65-110); Magnesium 2.1 mg/dL (1.6-2.3); Potassium 4.4 mmol/L (3.4-5.0); Sodium 139 mmol/L (137-145)
[2025-09-16] MEDS: PANTOPRAZOLE SODIUM IV 40 MG VIAL IV PUSH (08:24)
--- NOTE | 2025-09-16 09:37 | P.PNGS_ITS ---
Progress Note: A&P Assessment and Plan (1) Diverticulitis: Code(s): K57.92 - Diverticulitis of intestine, part unspecified, without perforation or abscess without bleeding Status: Acute Assessment and Plan: * Uncomplicated diverticulitis just below the fascia at her stoma without perforation or abscess. Improving with antibiotic treatment. * Ostomy functioning well and she is now passing gas and stool. * Continue IV Zosyn * Advance to low fiber diet * Hypaque enema ordered to assess her stump for eventual colostomy takedown that will likely be scheduled electively in a few weeks. (2) Thrush, oral: Code(s): B37.0 - Candidal stomatitis Status: Acute Assessment and Plan: * Will start nystatin swish and swallow Plan I have discussed the patient's case and plan of care with Dr. Henry. Subjective Subjective Date/Time Seen: 09/16/25 09:37 Patient reports: no new complaints, flatus, bowel movement and afebrile Interval history: Patient still having left-sided cramping abdominal pain. She states it feels better at times, but comes and goes. She still has some mild intermittent nausea. No vomiting. She is tolerating full liquids, but still isn't eating or drinking much. She typically does not drink much at home either. She also reports urinary stress incontinence, which has been ongoing for the past month. She was recently treated as an outpatient for a UTI, but still had another 1-2 days of oral antibiotics left when she came into the ER for this visit. She is no longer having dysuria or urgency. Denies any vaginal itching or discharge. UA on admission was unremarkable. She also reports having a white tongue, which she noticed recently. Exam Const: General: comfortable and no acute distress [address] ation/consciousness: patient oriented x3 HENMT: Other: tongue is coated with thick, white plaques over nearly the entire tongue c/w oral candidiasis GI: Inspection: non-distended GI Palp: Yes Soft to palpation, Yes Tenderness to palpation present (GI) (less diffuse tenderness, only tender on the left abdomen around the ostomy), No Guarding due to palpation present (GI) and No Rebound tenderness present Auscultation: normal bowel sounds Other: Left-sided colostomy with moderate amount of soft brown stool in the bag and gas in the bag. Objective Data Vital Signs Vital Signs: Vital Signs - 24 hr 09/15/25 13:26 09/15/25 20:00 09/15/25 20:13 Temperature 98.6 F 97.7 F Pulse Rate 69 85 Respiratory Rate 16 20 Blood Pressure 117/72 152/87 H Pulse Oximetry 98 100 Oxygen Delivery Room Air 09/16/25 04:02 Temperature 97.3 F L Pulse Rate 81 Respiratory Rate 20 Blood Pressure 122/77 Pulse Oximetry 95 Oxygen Delivery Intake/Output Intake/Output: Intake & Output 09/13/25 09/14/25 09/15/25 09/16/25 23:59 23:59 23:59 23:59 Intake Total 2680 2660 1674 Output Total 2 200 Balance 2680 2658 1474 Meds/Results Medications: Active Medications Generic Name Dose Route Start Last Admin Trade Name Freq PRN Reason Stop Dose Admin Acetaminophen 650 mg 09/14/25 12:34 Acetaminophen 325 Mg Tablet PO Q4H PRN Mild Pain (1-3) or Fever Hydrocodone Bitart/Acetaminophen 1 tab 09/14/25 12:34 Hydrocodone/Acetaminophen (*Crx) 5-325 Mg Tablet PO Q4H PRN Pain Rated 4-6 Piperacillin Sod/Tazobactam 50 mls @ 100 mls/hr 09/14/25 18:00 09/16/25 05:51 Sod 3.375 gm/ Sodium Chloride IVPB Infused Q6H ARSLAN Infusion Sodium Chloride 1,000 mls @ 60 mls/hr 09/15/25 09:25 09/16/25 02:04 Normal Saline Iv IV CONT 60 mls/hr .[id number] ARSLAN Administration Morphine Sulfate 2 mg 09/14/25 12:34 09/16/25 09:15 Morphine Sulfate (*Crx) 4 Mg/Ml Inj IV PUSH 2 mg Q2H PRN Administration Pain Rated 7-10 Ondansetron HCl 4 mg 09/14/25 12:34 Ondansetron Inj 4 Mg/2 Ml Vial IV PUSH Q4H PRN Nausea Pantoprazole Sodium 40 mg 09/15/25 09:00 09/16/25 08:24 Pantoprazole Sodium Iv 40 Mg Vial IV PUSH 40 mg QAM ARSLAN Administration Radiology Results: ITS Impressions Abdomen/Pelvis CT 09/14/25 10:13 IMPRESSION: 1. Left lower quadrant diverticulitis along colostomy. Labs Labs: Laboratory Results - last 24 hr 09/16/25 04:26 WBC 7.2 RBC 4.01 L Hgb 12.1 Hct 38.2 MCV 95.3 MCH 30.2 MCHC 31.7 L RDW 12.7 Plt Count 273 MPV 9.2 Sodium 139 Potassium 4.4 Chloride 107 Carbon Dioxide 26 Anion Gap 6 BUN 4 L Creatinine 0.87 Estim Creat Clear Calc 50 Estimated GFR > 60 Glucose 96 Calcium 9.2 Magnesium 2.1
[2025-09-16] MEDS: NYSTATIN 100,000 UNITS/ML SUSP 5 ML ORAL.SUSP PO ×3 (12:33→20:52)
--- NOTE | 2025-09-16 12:34 | P.PNIM_ITS ---
Progress Note: A&P Assessment and Plan (1) Diverticulitis: Code(s): K57.92 - Diverticulitis of intestine, part unspecified, without perforation or abscess without bleeding Status: Acute Assessment and Plan: The patient has a history of diverticulitis. Most recent episode in July of 2025 and was admitted from 08/10/2025 to. Initial imaging showed acute uncomplicated diverticulitis. However, shortly after admission the patient was found to have perforated sigmoid diverticulitis that was confirmed on CT on 08/12. She underwent an exploratory laparotomy, resection of the perforated sigmoid diverticulitis, and creation of end ileostomy on 08/12. Patient later developed an ileus during her stay which was treated with NG tube decompression and bowel rest. Returning with abdominal pain, nausea, and vomiting with decreased output from her ostomy. - CT abd/pelvis: Left lower quadrant diverticulitis along colostomy. - general surgery consulted >> no current surgical concerns - started on Zosyn on 09/14 - IV fluids: 1L bolus, now on 100 mL/hr x1L - clear liquid diet - pain medication prn - daily clinical reassessment for improvement Plan patient with history of abdominal surgery and has ostomy, patient is found to have diverticulitis, seen by surgery service patient clinical symptoms are improving as patient is passing gas, and pain has improved, most likely will not need any surgical intervention, will monitor. today patient stats feels much better, had a BM, and abdominal pain has improved, white counts are trending down, being treated with Zosyn, patient is currently eating her lunch, will monitor today, if remains clinically stable, will discharge home tomorrow, patient will be seen by surgery service and further recommendation to follow. Diet: Clear liquid GI Prophylaxis: Ppi IV DVT Prophylaxis: SCDs IV fluids: 1L bolus -> 100 mL/hr x1L Lines/Tubes: Peripheral IV Code Status: Full code Subjective Date/time seen: 09/16/25 12:34 Interval history: Abdominal Pain H&P-Narrative: 60 y/o F with PMH of recurrent diverticulitis, diverticulitis with perforation, colostomy, osteoporosis, anxiety, and current vape use presents here with abdominal pain. The patient reports acute onset of abdominal pain yesterday, 09/13. She describes the abdominal pain as left lower quadrant, achy, and similar to her previous episodes of diverticulitis. She reports associated nausea and vomiting, however has not had any nausea/vomiting today. She reports decreased stool output from her ostomy. She denies changes in stoma appearance. She denies diarrhea, constipation, fever, chills, body aches. Of note, the patient reports she was recently diagnosed with a UTI approximately 1 week ago and has been on Keflex. She reports she only has 1-2 doses left. She denies any curre nt urinary symptoms. Initial VS at presentation: 97.7? F, HR 90, R 18, 174/106, and 98% on RA. ED workup showed: WBC 11.0, hemoglobin 14.1, sodium 135, creatinine 0.81 and GFR >60, and UA showed trace leuk esterase and 3-[address] of the abdomen/pelvis showed left lower quadrant diverticulitis along colostomy. patient with history of abdominal surgery and has ostomy, patient is found to have diverticulitis, seen by surgery service patient clinical symptoms are improving as patient is passing gas, and pain has improved, most likely will not need any surgical intervention, will monitor. today patient stats feels much better, had a BM, and abdominal pain has improved, white counts are trending down, being treated with Zosyn, patient is currently eating her lunch, will monitor today, if remains clinically stable, will discharge home tomorrow, patient will be seen by surgery service and further recommendation to follow. Review of Systems Review of Systems: All systems reviewed & are unremarkable except as noted in HPI and below Exam Narrative: Patient is comfortable, NAD HEENT: eyes are clear and none icteric LUNGS:CTA HEART: RR S1S2 ABD: BS+, Soft and nontender Lower extremities: no edema SKIN: nonjaundiced Neuro: grossly intact. Objective Data Vital Signs Vital Signs: Vital Signs - 24 hr 09/15/25 13:26 09/15/25 20:00 09/15/25 20:13 Temperature 37.0 C 36.5 C Pulse Rate 69 85 Respiratory Rate 16 20 Blood Pressure 117/72 152/87 H Pulse Oximetry 98 100 Oxygen Delivery Room Air 09/16/25 04:02 09/16/25 08:00 Temperature 36.3 C L Pulse Rate 81 Respiratory Rate 20 Blood Pressure 122/77 Pulse Oximetry 95 Oxygen Delivery Room Air Intake/Output Intake/Output: Intake & Output 09/13/25 09/14/25 09/15/25 09/16/25 23:59 23:59 23:59 23:59 Intake Total 2680 2660 1674 Output Total 2 200 Balance 2680 2653 1474 Meds/Results Medications: Active Medications Generic Name Dose Route Start Last Admin Trade Name Freq PRN Reason Stop Dose Admin Acetaminophen 650 mg 09/14/25 12:34 Acetaminophen 325 Mg Tablet PO Q4H PRN Mild Pain (1-3) or Fever Hydrocodone Bitart/Acetaminophen 1 tab 09/14/25 12:34 Hydrocodone/Acetaminophen (*Crx) 5-325 Mg Tablet PO Q4H PRN Pain Rated 4-6 Piperacillin Sod/Tazobactam 50 mls @ 100 mls/hr 09/14/25 18:00 09/16/25 12:33 Sod 3.375 gm/ Sodium Chloride IVPB 100 mls/hr Q6H ARSLAN Administration Sodium Chloride 1,000 mls @ 60 mls/hr 09/15/25 09:25 09/16/25 02:04 Normal Saline Iv IV CONT 60 mls/hr .[id number] ARSLAN Administration Morphine Sulfate 2 mg 09/14/25 12:34 09/16/25 09:15 Morphine Sulfate (*Crx) 4 Mg/Ml Inj IV PUSH 2 mg Q2H PRN Administration Pain Rated 7-10 Nystatin 5 ml 09/16/25 13:00 09/16/25 12:33 Nystatin 100,000 Units/Ml Susp 5 Ml Oral.Susp PO 09/26/25 12:59 5 ml QID ARSLAN Administration Ondansetron HCl 4 mg 09/14/25 12:34 Ondansetron Inj 4 Mg/2 Ml Vial IV PUSH Q4H PRN Nausea Pantoprazole Sodium 40 mg 09/15/25 09:00 09/16/25 08:24 Pantoprazole Sodium Iv 40 Mg Vial IV PUSH 40 mg QAM ARSLAN Administration Radiology Results: ITS Impressions Abdomen/Pelvis CT 09/14/25 10:13 IMPRESSION: 1. Left lower quadrant diverticulitis along colostomy. Enema w/Water Soluble 09/16/25 10:12 IMPRESSION: 1. Changes consistent with prior partial colectomy with left lower quadrant end colostomy and normal Kinney's pouch. Labs Labs: Laboratory Results - last 24 hr 09/16/25 04:26 WBC 7.2 RBC 4.01 L Hgb 12.1 Hct 38.2 MCV 95.3 MCH 30.2 MCHC 31.7 L RDW 12.7 Plt Count 273 MPV 9.2 Sodium 139 Potassium 4.4 Chloride 107 Carbon Dioxide 26 Anion Gap 6 BUN 4 L Creatinine 0.87 Estim Creat Clear Calc 50 Estimated GFR > 60 Glucose 96 Calcium 9.2 Magnesium 2.1 Quality VTE Prophylaxis VTE prophylaxis: mechanical ordered
[2025-09-16 13:08] VITALS: BP 144/90; PULSE 74; RESP 16; TEMP 36.3; O2SAT 94
[2025-09-16 20:28] VITALS: BP 154/86; PULSE 91; RESP 20; TEMP 36.4; O2SAT 96
[2025-09-17] MEDS: PIPERACILLIN/TAZOBACTAM SOD 3.375 GM in SODIUM CHLORIDE 0.9% IV 50 ML 100 ML IVPB ×5 (00:32→23:53)
[2025-09-17 03:50] VITALS: BP 149/91; PULSE 87; RESP 20; TEMP 36.6; O2SAT 98
[2025-09-17] MEDS: MORPHINE SULFATE (*CRX) 4 MG/ML INJ 2 MG IV PUSH ×2 (04:05→21:49)
[2025-09-17 05:05] LABS: Hematocrit 38.1 % (37.0-47.0); Hemoglobin 12.5 g/dL (12.0-15.0); Mean Corpuscular HGB Conc 32.8 g/dl (32-36); Mean Corpuscular Hemoglobin 30.2 pg (26-34); Mean Corpuscular Volume 92.0 fl (80-100); Platelet Count Result 298 k/mm3 (150-375); Red Blood Count 4.14 M/mm3 (4.2-5.4); White Blood Count 7.2 K/mm3 (4.5-10.0)
[2025-09-17 05:29] LABS: Anion Gap 7 mmol/L (4-12); Blood Urea Nitrogen 7 mg/dL (7-17); Calcium 9.0 mg/dL (8.4-10.2); Carbon Dioxide 23 mmol/L (22-30); Chloride 107 mmol/L (98-107); Estimated CRCL calculation 49 ml/min; Estimated Glomerular Filt Rate > 60; Glucose 117 mg/dL (65-110); Magnesium 2.1 mg/dL (1.6-2.3); Potassium 3.5 mmol/L (3.4-5.0); Sodium 137 mmol/L (137-145)
[2025-09-17] MEDS: PANTOPRAZOLE SODIUM IV 40 MG VIAL IV PUSH (08:32)
[2025-09-17] MEDS: NYSTATIN 100,000 UNITS/ML SUSP 5 ML ORAL.SUSP PO ×4 (08:32→21:35)
--- NOTE | 2025-09-17 09:23 | P.PNGS_ITS ---
Progress Note: A&P Assessment and Plan (1) Diverticulitis: Code(s): K57.92 - Diverticulitis of intestine, part unspecified, without perforation or abscess without bleeding Status: Acute Assessment and Plan: * Uncomplicated diverticulitis just below the fascia at her stoma without perforation or abscess. Improving with antibiotic treatment. Hypaque enema yesterday demonstrated changes consistent with prior partial colectomy with left lower quadrant end colostomy and normal Leslee's pouch. No fistulous communication or extraluminal leak noted. Colostomy takedown will likely be scheduled electively in a few weeks. * Ostomy functioning well. Passing stool. Patient does however complain of looser stools this morning. States she had increased left-sided abdominal pain last night. She was last given IV Morphine around 4:00 a.m. Will monitor overnight with plans for hopeful discharge tomorrow. * Continue IV Zosyn. * Continue low fiber diet. (2) Thrush, oral: Code(s): B37.0 - Candidal stomatitis Status: Acute Assessment and Plan: Continue nystatin swish and swallow. Plan Discussed patient's case and plan of care with Dr. Berry. Subjective Subjective Date/Time Seen: 09/17/25 09:23 Patient reports: still having pain, tolerating a regular diet and bowel movement Interval history: Patient states that she had increased pain last night after eating dinner. States it feels like a log in her belly medial and superior to her stoma. Also noting some sharp pain directly inferior to her stoma. She noted some nausea, but no vomiting. She only ate a half of a banana this morning for breakfast. Vital signs remained stable. WBC 7.2. She notes loose stool from her ostomy early this morning. She said it had been more formed yessterday. Exam HENMT: Other: tongue still appears coated with thick, white plaques over nearly the entire tongue c/w oral candidiasis GI: Inspection: non-distended and scar (midline scar) Auscultation: normal bowel sounds Other: Left-sided colostomy with small amount of liquid brown stool in the bag. Stoma pink and viable. Objective Data Vital Signs Vital Signs: Vital Signs - 24 hr 09/16/25 13:08 09/16/25 20:28 09/16/25 20:45 Temperature 97.4 F L 97.6 F Pulse Rate 74 91 Respiratory Rate 16 20 Blood Pressure 144/90 H 154/86 H Pulse Oximetry 94 96 Oxygen Delivery Room Air 09/17/25 03:50 Temperature 97.8 F Pulse Rate 87 Respiratory Rate 20 Blood Pressure 149/91 H Pulse Oximetry 98 Oxygen Delivery Intake/Output Intake/Output: Intake & Output 09/14/25 09/15/25 09/16/25 09/17/25 23:59 23:59 23:59 23:59 Intake Total 2680 2660 3584 730 Output Total 2 200 125 Balance 2680 2658 3384 605 Meds/Results Medications: Active Medications Generic Name Dose Route Start Last Admin Trade Name Freq PRN Reason Stop Dose Admin Acetaminophen 650 mg 09/14/25 12:34 Acetaminophen 325 Mg Tablet PO Q4H PRN Mild Pain (1-3) or Fever Hydrocodone Bitart/Acetaminophen 1 tab 09/14/25 12:34 Hydrocodone/Acetaminophen (*Crx) 5-325 Mg Tablet PO Q4H PRN Pain Rated 4-6 Piperacillin Sod/Tazobactam 50 mls @ 100 mls/hr 09/14/25 18:00 09/17/25 05:35 Sod 3.375 gm/ Sodium Chloride IVPB Infused Q6H ARSLAN Infusion Sodium Chloride 1,000 mls @ 60 mls/hr 09/15/25 09:25 09/16/25 21:35 Normal Saline Iv IV CONT 60 mls/hr .[id number] ARSLAN Administration Morphine Sulfate 2 mg 09/14/25 12:34 09/17/25 04:05 Morphine Sulfate (*Crx) 4 Mg/Ml Inj IV PUSH 2 mg Q2H PRN Administration Pain Rated 7-10 Nystatin 5 ml 09/16/25 13:00 09/17/25 08:32 Nystatin 100,000 Units/Ml Susp 5 Ml Oral.Susp PO 09/26/25 12:59 5 ml QID ARSLAN Administration Ondansetron HCl 4 mg 09/14/25 12:34 Ondansetron Inj 4 Mg/2 Ml Vial IV PUSH Q4H PRN Nausea Pantoprazole Sodium 40 mg 09/15/25 09:00 09/17/25 08:32 Pantoprazole Sodium Iv 40 Mg Vial IV PUSH 40 mg QAM ARSLAN Administration Radiology Results: ITS Impressions Abdomen/Pelvis CT 09/14/25 10:13 IMPRESSION: 1. Left lower quadrant diverticulitis along colostomy. Enema w/Water Soluble 09/16/25 10:12 IMPRESSION: 1. Changes consistent with prior partial colectomy with left lower quadrant end colostomy and normal Kinney's pouch. Labs Labs: Laboratory Results - last 24 hr 09/17/25 04:34 WBC 7.2 RBC 4.14 L Hgb 12.5 Hct 38.1 MCV 92.0 MCH 30.2 MCHC 32.8 RDW 12.6 Plt Count 298 MPV 9.4 Sodium 137 Potassium 3.5 Chloride 107 Carbon Dioxide 23 Anion Gap 7 BUN 7 Creatinine 0.89 Estim Creat Clear Calc 49 Estimated GFR > 60 Glucose 117 H Calcium 9.0 Magnesium 2.1
--- NOTE | 2025-09-17 11:50 | P.PNIM_ITS ---
Progress Note: A&P Assessment and Plan (1) Diverticulitis: Code(s): K57.92 - Diverticulitis of intestine, part unspecified, without perforation or abscess without bleeding Status: Acute Assessment and Plan: The patient has a history of diverticulitis. Most recent episode in July of 2025 and was admitted from 08/10/2025 to. Initial imaging showed acute uncomplicated diverticulitis. However, shortly after admission the patient was found to have perforated sigmoid diverticulitis that was confirmed on CT on 08/12. She underwent an exploratory laparotomy, resection of the perforated sigmoid diverticulitis, and creation of end ileostomy on 08/12. Patient later developed an ileus during her stay which was treated with NG tube decompression and bowel rest. Returning with abdominal pain, nausea, and vomiting with decreased output from her ostomy. - CT abd/pelvis: Left lower quadrant diverticulitis along colostomy. - general surgery consulted >> no current surgical concerns - started on Zosyn on 09/14 - IV fluids: 1L bolus, now on 100 mL/hr x1L - clear liquid diet - pain medication prn - daily clinical reassessment for improvement Plan patient with history of abdominal surgery and has ostomy, patient is found to have diverticulitis, seen by surgery service patient clinical symptoms are improving as patient is passing gas, and pain has improved, most likely will not need any surgical intervention, will monitor. today patient stats does not fee better, had a loose BM, and had abdominal pain last night and was given morphine, whoever white counts are trending down, being treated with Zosyn, plan was discharge patient today, will monitor today, if remains clinically stable, will discharge home possibly tomorrow, patient is se en by surgery service and further recommendation to follow. Diet: Clear liquid GI Prophylaxis: Ppi IV DVT Prophylaxis: SCDs IV fluids: 1L bolus -> 100 mL/hr x1L Lines/Tubes: Peripheral IV Code Status: Full code Subjective Date/time seen: 09/17/25 11:50 Interval history: Abdominal Pain H&P-Narrative: 60 y/o F with PMH of recurrent diverticulitis, diverticulitis with perforation, colostomy, osteoporosis, anxiety, and current vape use presents here with abdominal pain. The patient reports acute onset of abdominal pain yesterday, 09/13. She describes the abdominal pain as left lower quadrant, achy, and similar to her previous episodes of diverticulitis. She reports associated nausea and vomiting, however has not had any nausea/vomiting today. She reports decreased stool output from her ostomy. She denies changes in stoma appearance. She denies diarrhea, constipation, fever, chills, body aches. Of note, the patient reports she was recently diagnosed with a UTI approximately 1 week ago and has been on Keflex. She reports she only has 1-2 doses left. She denies any current urinary symptoms. Initial VS at presentation: 97.7? F, HR 90, R 18, 174/106, and 98% on RA. ED workup showed: WBC 11.0, hemoglobin 14.1, sodium 135, creatinine 0.81 and GFR >60, and UA showed trace leuk esterase and 3-[address] of the abdomen/pelvis showed left lower quadrant diverticulitis along colostomy. patient with history of abdominal surgery and has ostomy, patient is found to have diverticulitis, seen by surgery service patient clinical symptoms are improving as patient is passing gas, and pain has improved, most likely will not need any surgical intervention, will monitor. today patient stats does not fee better, had a loose BM, and had abdominal pain last night and was given morphine, whoever white counts are trending down, being treated with Zosyn, plan was discharge patient today, will monitor today, if remains clinically stable, will discharge home possibly tomorrow, patient is seen by surgery service and further recommendation to follow. Review of Systems Review of Systems: All systems reviewed & are unremarkable except as noted in HPI and below Exam Narrative: Patient is comfortable, NAD HEENT: eyes are clear and none icteric LUNGS:CTA HEART: RR S1S2 ABD: BS+, Soft and nontender Lower extremities: no edema SKIN: nonjaundiced Neuro: grossly intact. Objective Data Vital Signs Vital Signs: Vital Signs - 24 hr 09/16/25 13:08 09/16/25 20:28 09/16/25 20:45 Temperature 36.3 C L 36.4 C Pulse Rate 74 91 Respiratory Rate 16 20 Blood Pressure 144/90 H 154/86 H Pulse Oximetry 94 96 Oxygen Delivery Room Air 09/17/25 03:50 09/17/25 08:00 Temperature 36.6 C Pulse Rate 87 Respiratory Rate 20 Blood Pressure 149/91 H Pulse Oximetry 98 Oxygen Delivery Room Air Intake/Output Intake/Output: Intake & Output 09/14/25 09/15/25 09/16/25 09/17/25 23:59 23:59 23:59 23:59 Intake Total 2680 2660 3584 820 Output Total 2 200 125 Balance 2680 2658 0085 695 Meds/Results Medications: Active Medications Generic Name Dose Route Start Last Admin Trade Name Freq PRN Reason Stop Dose Admin Acetaminophen 650 mg 09/14/25 12:34 Acetaminophen 325 Mg Tablet PO Q4H PRN Mild Pain (1-3) or Fever Hydrocodone Bitart/Acetaminophen 1 tab 09/14/25 12:34 Hydrocodone/Acetaminophen (*Crx) 5-325 Mg Tablet PO Q4H PRN Pain Rated 4-6 Piperacillin Sod/Tazobactam 50 mls @ 100 mls/hr 09/14/25 18:00 09/17/25 05:35 Sod 3.375 gm/ Sodium Chloride IVPB Infused Q6H ARSLAN Infusion Sodium Chloride 1,000 mls @ 60 mls/hr 09/15/25 09:25 09/16/25 21:35 Normal Saline Iv IV CONT 60 mls/hr .[id number] ARSLAN Administration Morphine Sulfate 2 mg 09/14/25 12:34 09/17/25 04:05 Morphine Sulfate (*Crx) 4 Mg/Ml Inj IV PUSH 2 mg Q2H PRN Administration Pain Rated 7-10 Nystatin 5 ml 09/16/25 13:00 09/17/25 08:32 Nystatin 100,000 Units/Ml Susp 5 Ml Oral.Susp PO 09/26/25 12:59 5 ml QID ARSLAN Administration Ondansetron HCl 4 mg 09/14/25 12:34 Ondansetron Inj 4 Mg/2 Ml Vial IV PUSH Q4H PRN Nausea Pantoprazole Sodium 40 mg 09/15/25 09:00 09/17/25 08:32 Pantoprazole Sodium Iv 40 Mg Vial IV PUSH 40 mg QAM ARSLAN Administration Radiology Results: ITS Impressions Abdomen/Pelvis CT 09/14/25 10:13 IMPRESSION: 1. Left lower quadrant diverticulitis along colostomy. Enema w/Water Soluble 09/16/25 10:12 IMPRESSION: 1. Changes consistent with prior partial colectomy with left lower quadrant end colostomy and normal Kinney's pouch. Labs Labs: Laboratory Results - last 24 hr 09/17/25 04:34 WBC 7.2 RBC 4.14 L Hgb 12.5 Hct 38.1 MCV 92.0 MCH 30.2 MCHC 32.8 RDW 12.6 Plt Count 298 MPV 9.4 Sodium 137 Potassium 3.5 Chloride 107 Carbon Dioxide 23 Anion Gap 7 BUN 7 Creatinine 0.89 Estim Creat Clear Calc 49 Estimated GFR > 60 Glucose 117 H Calcium 9.0 Magnesium 2.1 Quality VTE Prophylaxis VTE prophylaxis: mechanical ordered
[2025-09-17 13:16] VITALS: BP 142/83; RESP 16; TEMP 36.8; O2SAT 99
[2025-09-17 22:00] VITALS: BP 147/95; PULSE 93; RESP 18; TEMP 36.3; O2SAT 100
[2025-09-18 04:52] LABS: Hematocrit 39.9 % (37.0-47.0); Hemoglobin 13.1 g/dL (12.0-15.0); Mean Corpuscular HGB Conc 32.8 g/dl (32-36); Mean Corpuscular Hemoglobin 30.4 pg (26-34); Mean Corpuscular Volume 92.6 fl (80-100); Platelet Count Result 304 k/mm3 (150-375); Red Blood Count 4.31 M/mm3 (4.2-5.4); White Blood Count 7.9 K/mm3 (4.5-10.0)
[2025-09-18 05:14] LABS: Anion Gap 8 mmol/L (4-12); Blood Urea Nitrogen 6 mg/dL (7-17); Calcium 9.3 mg/dL (8.4-10.2); Carbon Dioxide 21 mmol/L (22-30); Chloride 108 mmol/L (98-107); Estimated CRCL calculation 52 ml/min; Estimated Glomerular Filt Rate > 60; Glucose 96 mg/dL (65-110); Magnesium 2.1 mg/dL (1.6-2.3); Potassium 3.6 mmol/L (3.4-5.0); Sodium 137 mmol/L (137-145)
[2025-09-18] MEDS: ACETAMINOPHEN 325 MG TABLET 650 MG PO (05:34)
[2025-09-18] MEDS: PIPERACILLIN/TAZOBACTAM SOD 3.375 GM in SODIUM CHLORIDE 0.9% IV 50 ML 100 ML IVPB ×2 (05:35→12:27)
[2025-09-18 06:00] VITALS: BP 138/91; PULSE 75; RESP 18; TEMP 36.4; O2SAT 93
--- NOTE | 2025-09-18 10:10 | P.PNGS_ITS ---
Progress Note: A&P Assessment and Plan (1) Diverticulitis: Code(s): K57.92 - Diverticulitis of intestine, part unspecified, without perforation or abscess without bleeding Status: Acute Assessment and Plan: * Improving with IV antibiotics. Tolerating a low fiber diet and ostomy is functioning well. Abdominal pain and exam much better today. WBC count remains normal. * Okay to d/c from a surgical standpoint on oral antibiotics (total of 14 days). F/u with Dr. Wolfe in our office in 2 weeks. We will schedule the appointment. Continue low fiber diet x 2 weeks. We will plan her eventual colostomy takedown as an outpatient in the next few weeks. (2) Thrush, oral: Code(s): B37.0 - Candidal stomatitis Status: Acute Assessment and Plan: * Continue nystatin swish and swallow. She will need to continue treatment for up to a total of 14 days. Subjective Subjective Date/Time Seen: 09/18/25 10:10 Patient reports: no new complaints, tolerating a regular diet, voiding w/o difficulty, flatus, bowel movement (ostomy functioning well) and afebrile Interval history: Patient eating and drinking better. Her abdominal pain is much better. No pain medication since last night. She has no nausea or vomiting. Exam Const: General: comfortable and no acute distress Orientation/consciousness: patient oriented x3 HENMT: Other: tongue still appears coated with thick, white plaques over nearly the entire tongue c/w oral candidiasis GI: Inspection: non-distended GI Palp: Yes Soft to palpation, No Tenderness to palpation present (GI), No Guarding due to palpation present (GI) and No Rebound tenderness present Auscultation: normal bowel sounds Other: Left-sided colostomy with small amount of liquid brown stool in the bag. Stoma pink and viable. Objective Data Vital Signs Vital Signs: Vital Signs - 24 hr 09/17/25 13:16 09/17/25 21:25 09/17/25 22:00 Temperature 98.2 F 97.4 F L Pulse Rate 93 Respiratory Rate 16 18 Blood Pressure 142/83 H 147/95 H Pulse Oximetry 99 100 Oxygen Delivery Room Air 09/18/25 06:00 Temperature 97.6 F Pulse Rate 75 Respiratory Rate 18 Blood Pressure 138/91 H Pulse Oximetry 93 Oxygen Delivery Intake/Output Intake/Output: Intake & Output 10/27/25 10/28/25 10/29/25 10/30/25 23:59 23:59 23:59 23:59 Intake Total 2660 3584 1340 650 Output Total 2 200 225 Balance 2658 3384 1115 650 Meds/Results Medications: Active Medications Generic Name Dose Route Start Last Admin Trade Name Freq PRN Reason Stop Dose Admin Acetaminophen 650 mg 09/14/25 12:34 09/18/25 05:34 Acetaminophen 325 Mg Tablet PO 650 mg Q4H PRN Administration Mild Pain (1-3) or Fever Hydrocodone Bitart/Acetaminophen 1 tab 09/14/25 12:34 Hydrocodone/Acetaminophen (*Crx) 5-325 Mg Tablet PO Q4H PRN Pain Rated 4-6 Hydrocodone Bitart/Acetaminophen 1 tab 09/17/25 12:12 Hydrocodone/Acetaminophen (*Crx) 10-325 Mg Tablet PO Q6H PRN Pain Rated 7-10 Piperacillin Sod/Tazobactam 50 mls @ 100 mls/hr 09/14/25 18:00 09/18/25 06:05 Sod 3.375 gm/ Sodium Chloride IVPB Infused Q6H ARSLAN Infusion Morphine Sulfate 2 mg 09/14/25 12:34 09/17/25 21:49 Morphine Sulfate (*Crx) 4 Mg/Ml Inj IV PUSH 2 mg Q2H PRN Administration If NPO or breakthrough pain Nystatin 5 ml 09/16/25 13:00 09/17/25 21:35 Nystatin 100,000 Units/Ml Susp 5 Ml Oral.Susp PO 09/26/25 12:59 5 ml QID ARSLAN Administration Ondansetron HCl 4 mg 09/14/25 12:34 Ondansetron Inj 4 Mg/2 Ml Vial IV PUSH Q4H PRN Nausea Pantoprazole Sodium 40 mg 09/15/25 09:00 09/17/25 08:32 Pantoprazole Sodium Iv 40 Mg Vial IV PUSH 40 mg QAM ARSLAN Administration Radiology Results: ITS Impressions Abdomen/Pelvis CT 09/14/25 10:13 IMPRESSION: 1. Left lower quadrant diverticulitis along colostomy. Enema w/Water Soluble 09/16/25 10:12 IMPRESSION: 1. Changes consistent with prior partial colectomy with left lower quadrant end colostomy and normal Kinney's pouch. Labs Labs: Laboratory Results - last 24 hr 09/18/25 04:30 WBC 7.9 RBC 4.31 Hgb 13.1 Hct 39.9 MCV 92.6 MCH 30.4 MCHC 32.8 RDW 12.3 Plt Count 304 MPV 9.1 Sodium 137 Potassium 3.6 Chloride 108 H Carbon Dioxide 21 L Anion Gap 8 BUN 6 L Creatinine 0.84 Estim Creat Clear Calc 52 Estimated GFR > 60 Glucose 96 Calcium 9.3 Magnesium 2.1
[2025-09-18] MEDS: PANTOPRAZOLE SODIUM IV 40 MG VIAL IV PUSH (10:25)
[2025-09-18] MEDS: NYSTATIN 100,000 UNITS/ML SUSP 5 ML ORAL.SUSP PO ×2 (10:25→12:27)
--- NOTE | 2025-09-18 11:07 | P.DS_ITS ---
DS: Admitting Diagnosis Discharge Date 09/18/25 Admitting Diagnosis Abdominal Pain DS: Discharge Diagnosis Discharge Diagnosis (1) Diverticulitis: Code(s): K57.92 - Diverticulitis of intestine, part unspecified, without perforation or abscess without bleeding Status: Acute Assessment and Plan: The patient has a history of diverticulitis. Most recent episode in July of 2025 and was admitted from 08/10/2025 to. Initial imaging showed acute uncomplicated diverticulitis. However, shortly after admission the patient was found to have perforated sigmoid diverticulitis that was confirmed on CT on 08/12. She underwent an exploratory laparotomy, resection of the perforated sig moid diverticulitis, and creation of end ileostomy on 08/12. Patient later developed an ileus during her stay which was treated with NG tube decompression and bowel rest. Returning with abdominal pain, nausea, and vomiting with decreased output from her ostomy. - CT abd/pelvis: Left lower quadrant diverticulitis along colostomy. - general surgery consulted >> no current surgical concerns - started on Zosyn on 09/14 - IV fluids: 1L bolus, now on 100 mL/hr x1L - clear liquid diet - pain medication prn - daily clinical reassessment for improvement Plan patient with history of abdominal surgery and has ostomy, patient is found to have diverticulitis, seen by surgery service patient clinical symptoms are improving as patient is passing gas, and pain has improved, most likely will not need any surgical intervention, will monitor. today patient stats does not fee better, had a loose BM, and had abdominal pain last night and was given morphine, whoever white counts are trending down, being treated with Zosyn, plan was discharge patient today, will monitor today, if remains clinically stable, will discharge home possibly tomorrow, patient is seen by surgery service and further recommendation to follow. Diet: Clear liquid GI Prophylaxis: Ppi IV DVT Prophylaxis: SCDs IV fluids: 1L bolus -> 100 mL/hr x1L Lines/Tubes: Peripheral IV Code Status: Full code DS: Summary Hospital Course Hospital Course: patient with history of abdominal surgery and has ostomy, patient is found to have diverticulitis, seen by surgery service patient clinical symptoms are improving as patient is passing gas, and pain has improved, most likely will not need any surgical intervention, will monitor. on 09/17 patient stats does not fee better, had a loose BM, and had abdominal pain last night and was given morphine, however white counts were trending down, being treated with Zosyn, plan was discharge patient today, will monitor, if remains clinically stable, will discharge home possibly tomorrow, patient is seen by surgery service and further recommendation to follow. Today patient abdominal pain is better able to tolerate her diet, seen by surgery service and its okay discharge the patient on Augmentin, and pain medications, patient will follow up in the clinic Time Spent with Patient Time attestation: Total time spent providing and/or coordinating discharge services: Exam Narrative: Patient is comfortable, NAD HEENT: eyes are clear and none icteric LUNGS:CTA HEART: RR S1S2 ABD: BS+, Soft and nontender Lower extremities: no edema SKIN: nonjaundiced Neuro: grossly intact. DS: Data Data Completed and Pending Labs on day of discharge: Labs from last 24 hours 09/18/25 04:30 WBC 7.9 RBC 4.31 Hgb 13.1 Hct 39.9 MCV 92.6 MCH 30.4 MCHC 32.8 RDW 12.3 Plt Count 304 MPV 9.1 Sodium 137 Potassium 3.6 Chloride 108 H Carbon Dioxide 21 L Anion Gap 8 BUN 6 L Creatinine 0.84 Estim Creat Clear Calc 52 Estimated GFR > 60 Glucose 96 Calcium 9.3 Magnesium 2.1 Discharge Plan Discharge Attending physician on discharge: Hany Germain Consulting providers: Corby Paez; Marcio Henry Discharging Clinician: Avelina Choi Patient Disposition: Home Activity: may shower and as tolerated Diet: low fiber Discharge Instructions: Surgery discharge instructions (Dr. Wolfe) * Follow-up with Dr. Wolfe in 2 weeks. We will schedule the appointment and call you with time/date. If you have any questions sooner, please call. [phone] * Continue a low fiber diet x 2 weeks * If you develop worsening abdominal pain, vomiting, or fevers, call the surgeon or return to the ED. * group exercise instructor your antibiotics and take them as prescribed. You were also diagnosed with oral candidiasis (thrush) while in the hospital. You should continue taking the nystatin, which will be sent electronically to the pharmacy. If symptoms have completely resolved, then you can stop taking this medication on 09/25/25. Otherwise, take all that is prescribed and finish this medication on 09/29/25. Patient to follow discharge care instruction from her surgeon and follow up as scheduled, patient to follow up with primary care as soon as possible, patient is instructed if any symptoms worsen to go to nearest ER. Patient Instructions: Antibiotic Form, Low Fiber Diet (DC) Patient Language: Luxembourgish Stand Alone Forms: General Discharge Information Follow-up/Referrals: Maxine Wolfe MD [Physician, General Surgery] - 2 Weeks Discharge Medications: New nystatin 100,000 unit/mL Suspension 5 ml PO QID 11 Days Qty: 220 0RF amoxicillin-pot clavulanate 875-125 mg tablet 1 tablet PO Q12H 11 Days Qty: 22 0RF pantoprazole [Protonix] 40 mg tablet,delayed release (DR/EC) 40 mg PO QAM Qty: 30 0RF Continued hydrocodone-acetaminophen 5-325 mg Tablet 1 tablet PO Q4H PRN (Reason: Pain Rated 4-6) Qty: 10 0RF metoprolol tartrate 25 mg Tablet 25 mg PO Q12HR Qty: 60 0RF Discontinued ciprofloxacin HCl 500 mg tablet 500 mg PO BID Qty: 10 0RF Date of admission: 09/17/25 11:40 Primary Care Provider: PHYSICIAN,ROCK WOOL INSULATOR Admitting Provider: Hany Germain Attending physician on admission: Hany Germain Condition: Stable
== END 2025-09-18 13:16 | disposition home or self-care (01) | DRG 392 ==
LOC: ANHED 13:19 → ANH2MED 13:32
PROVIDERS: Nurse Practitioner Family; Student in an Organized Health Care Education/Training Program; Admitting Provider Internal Medicine; Emergency Provider Emergency Medicine; Visit Provider Family Medicine
DX: K57.92 Diverticulitis of intestine, part unspecified, without perforation or abscess without bleeding (principal); B37.0 Candidal stomatitis; N39.0 Urinary tract infection, site not specified; Z93.3 Colostomy status; Z90.49 Acquired absence of other specified parts of digestive tract; F41.9 Anxiety disorder, unspecified; F17.290 Nicotine dependence, other tobacco product, uncomplicated; F10.10 Alcohol abuse, uncomplicated; M81.0 Age-related osteoporosis without current pathological fracture
CPT/HCPCS: 36415; 74177; 74270; 80048; 80053; 81001; 83690; 83735; 85025; 85027; 96361; 96365; 96375; 99285; A9270; G0378; J2270; J2405; J2470; J2543; J7030; J7120; Q9967

== ENCOUNTER 2025-10-13 10:37 | Outpatient (CLI) | payer OTHER, SELFPAY ==
--- OUTSIDE RECORDS SUMMARY | 2025-10-13 12:33 | XMS_ITS | Clinical Summary ---
Author Organization [facility] rofessional Office [facility] Address [address] [place] [address] Care Team Providers Care Hospice Clinical Supervisor Name Role Phone Scott Wood MD Primary Care Provider Medications dextroamphetamin e-amphetamine (ADDERALL) 20 mg tablet [...] on file Legal Sex Female 3:06 PM FOOTWEAR SALES REPRESENTATIVE Gender Identity Not on file Sexual Orientation Not on file Last Filed Vital Signs Vital Sign Reading Time Taken Comments Blood Pressure 151/83 01/17/2019 3:20 PM FOOTWEAR SALES REPRESENTATIVE Pulse 116 01/17/2019 3:20 PM FOOTWEAR SALES REPRESENTATIVE Temperature 36.7 C (98.1 F) 01/17/2019 3:20 PM FOOTWEAR SALES REPRESENTATIVE Respiratory Rate 18 01/17/2019 3:20 PM FOOTWEAR SALES REPRESENTATIVE Oxygen Saturation 98% 01/17/2019 3:20 PM FOOTWEAR SALES REPRESENTATIVE Inhaled Oxygen Concentration - - Weight 65.8 kg (145 lb) 01/17/2019 3:20 PM FOOTWEAR SALES REPRESENTATIVE Height 154.9 cm (5' 1) 01/17/2019 3:20 PM FOOTWEAR SALES REPRESENTATIVE Body Mass Index 27.4 01/17/2019 3:20 PM FOOTWEAR SALES REPRESENTATIVE Plan of Treatment Health Maintenance Due Date [...] 2038 Insurance [employer] Care Teams Hospice Clinical Supervisor Relationship Specialty [place] [id number] [facility] [address] [place] [address] PCP - General Internal Medicine 01/17/19
--- OUTSIDE RECORDS SUMMARY | 2025-10-13 12:33 | XMS_ITS | Encounter Summary ---
Author Organization [facility] Health Address [address] [place] [address] Care Team Providers Care Health Type Technician Name Role Phone Unavailable Primary Care Provider Unavailabl e Prior Encounters Date Type Department Care Team Description 01/27/2023 11:30 AM QUALITY ASSURANCE DIRECTOR Office Visit [facility] [address] [place] [address] Bobo Noe DDS Last Filed Vital Signs Vital Sign Reading Time Taken Comments Blood Pressure 151/96 01/27/2023 12:35 PM QUALITY ASSURANCE DIRECTOR Pulse 92 01/27/2023 12:35 PM QUALITY ASSURANCE DIRECTOR Temperature - - Respiratory Rate - - Oxygen Saturation - - Inhaled Oxygen Concentration - - Weight 68 kg (150 lb) 01/27/2023 12:35 PM QUALITY ASSURANCE DIRECTOR Height 154.9 cm (5' 1) 01/27/2023 12:35 PM QUALITY ASSURANCE DIRECTOR Body Mass Index 28.34 01/27/2023 12:35 PM QUALITY ASSURANCE DIRECTOR Plan of Treatment Not on file Procedures Procedure Name Priority Date/Time Associated Diagnosis Comments INTRAORAL PHOTO Routine 01/27/2023 11:30 AM QUALITY ASSURANCE DIRECTOR INTRAORAL PHOTO Routine 01/27/2023 11:30 AM QUALITY ASSURANCE DIRECTOR INTRAORAL PHOTO Routine 01/27/2023 11:30 AM QUALITY ASSURANCE DIRECTOR INTRAORAL PHOTO Routine 01/27/2023 11:30 AM QUALITY ASSURANCE DIRECTOR PANORAMIC RADIOGRAPHIC IMAGE Routine 01/27/2023 11:30 AM QUALITY ASSURANCE DIRECTOR INTRAORAL - COMPREHENSIVE SERIES OF RADIOGRAPHIC IMAGES Routine 01/27/2023 11:30 AM QUALITY ASSURANCE DIRECTOR COMPREHENSIVE ORAL EVALUATION - NEW OR ESTABLISHED PATIENT Routine 01/27/2023 11:30 AM QUALITY ASSURANCE DIRECTOR 30 MODL COMPOSITE FILLING Routine 2022 12:00 AM QUALITY ASSURANCE DIRECTOR 31 O AMALGAM FILLING Routine 01/27/2023 12:00 AM QUALITY ASSURANCE DIRECTOR 20 O AMALGAM FILLING Routine 01/27/2023 12:00 AM QUALITY ASSURANCE DIRECTOR 19 O AMALGAM FILLING Routine 01/27/2023 12:00 AM QUALITY ASSURANCE DIRECTOR 18 O AMALGAM FILLING Routine 01/27/2023 12:00 AM QUALITY ASSURANCE DIRECTOR 15 O AMALGAM FILLING Routine 01/27/2023 12:00 AM QUALITY ASSURANCE DIRECTOR 14 LO AMALGAM FILLING Routine 01/27/2023 12:00 AM QUALITY ASSURANCE DIRECTOR 13 O COMPOSITE FILLING Routine 12:00 AM QUALITY ASSURANCE DIRECTOR 10 L COMPOSITE FILLING Routine 12:00 AM QUALITY ASSURANCE DIRECTOR 4 O AMALGAM FILLING Routine 01/27/2023 1 2:00 AM QUALITY ASSURANCE DIRECTOR 3 LO AMALGAM FILLING Routine 01/27/2023 12:00 AM QUALITY ASSURANCE DIRECTOR 2 O AMALGAM FILLING Routine 01/27/2023 1 2:00 AM QUALITY ASSURANCE DIRECTOR Visit Diagnoses Not on file Insurance [facility]
--- OUTSIDE RECORDS SUMMARY | 2025-10-13 12:33 | XMS_ITS | Clinical Summary ---
Author Organization [facility] Health Address [address] [place] [address] Care Team Providers Care Bar Tacker Name Role Phone Unavailable Primary Care Provider [...] Comments Blood Pressure 151/96 01/27/2023 12:35 PM UNCLAIMED PROPERTY OFFICER Pulse 92 01/27/2023 12:35 PM UNCLAIMED PROPERTY OFFICER Temperature - - Respiratory Rate - - Oxygen Saturation - - Inhaled Oxygen Concentration - - Weight 68 kg (150 lb) 01/27/2023 12:35 PM UNCLAIMED PROPERTY OFFICER Height 154.9 cm (5' 1) 01/27/2023 12:35 PM UNCLAIMED PROPERTY OFFICER Body Mass Index 28.34 01/27/2023 12:35 PM UNCLAIMED PROPERTY OFFICER Plan of Treatment Health Maintenance Due Date Last Done Comments Dental Prophylaxis 1965 Dental Oral Exam 07/31/2023 01/27/2023 Dental X-Ray: Bitewings 07/31/2023 01/27/2023 Dental X-Ray: Full Mouth 01/28/2026 01/27/2023 Dental X-Ray: Panoramic 01/28/2026 01/27/2023 Procedures Procedure Name Priority Date/Time Associated Diagnosis Comments PANORAMIC RADIOGRAPHIC IMAGE Routine 01/27/2023 11:30 AM UNCLAIMED PROPERTY OFFICER INTRAORAL - COMPREHENSIVE SERIES OF RADIOGRAPHIC IMAGES Routine 01/27/2023 11:30 AM UNCLAIMED PROPERTY OFFICER COMPREHENSIVE ORAL EVALUATION - NEW OR ESTABLISHED PATIENT Routine 01/27/2023 11:30 AM UNCLAIMED PROPERTY OFFICER from Last 3 Months or Most Recently Relevant to Health Maintenance [facility] [place] [id number]
== END 2025-10-13 10:38 | disposition home or self-care (01) ==
PROVIDERS: PCP Internal Medicine; Visit Provider Surgery
DX: K57.92 Diverticulitis of intestine, part unspecified, without perforation or abscess without bleeding (principal)
CPT/HCPCS: 36415; 86850; 86900; 86901

== ENCOUNTER 2025-10-23 10:46 | Inpatient (IN) | payer OTHER, SELFPAY ==
--- NOTE | 2025-10-13 10:46 | PC.NURSE ---
Addendum entered by Ginger Narayan RN 10/13/25 11:50: TAKE METOPROLOL MORNING OF SURGERY Original Note: [facility] has started construction of its new state of the art ER which will open Spring 2026. With this, we anticipate parking may be a challenge for some our surgical patients and families. Parking spaces are limited but are available for all Surgical, obstetrics, and ER patients sharing this lot. If you arrive and find you are having a hard time finding a parking space, please note that we understand the challenges, please drive around the hospital and park near Hospital Entrance 1. When you enter this entrance, you can ask a volunteer to direct or take you back to the surgical waiting area to check in. We appreciate everyone?s understanding of these expected challenges while we build for your future. Report to the Outpatient Waiting Room, entrance under the green pavilion located off [facility], at time __6 AM on date _10/23/25 . Planned Procedure Time: __7:30 AM .? Time changes happen often and if your time is changed the preop area will call you the afternoon before. - You and your visitor will be asked to self-screen and do not enter if you have any COVID symptoms. Please call surgeon if you need to reschedule. - A mask is optional within the hospital at this time. Patients may have clear liquids (water, carbonated beverages, clear teas, apple juice) until 3 hours prior to surgery( 4:30 AM) with a maximum of 20 ounces. - No food from midnight until time of surgery and no smoking, or chewing tobacco (or any form of nicotine). No chewing gum, candy or mints. - Take only the following medications with a SIP of water on the morning of surgery: ____NONE DO NOT STOP ANY OF YOUR OTHER PRESCRIPTION MEDICATIONS PRIOR TO SURGERY EXCEPT THE FOLLOWING Hold all vitamins and supplements for 3 days per anesthesiologist.LAST DOSE Medications to discontinue per physician ____NONE Date to take last dose BOWEL PREP PER DR ARAYA ENSURE BUNDLE PACK PER DR AARYA CHLORHEXIDINE CLEANSER DAY BEFORE SURGERY AND MORNING OF SURGERY Please no make-up, nail bermudian, hairspray, perfume, deodorant, or body powder the day of surgery.? No jewelry (including any body piercings) or valuables the day of surgery, leave them at home.? Please take a shower or bath the night before, or the morning of, surgery with an antibacterial soap.? Wear comfortable, loose fitting clothing.? Children are encouraged to wear pajamas. - Jewelry must be removed prior to entering the operating room.? Rings and piercings that are not removed may be cut off. - The hospital will not accept responsibility for valuables.? - Please leave all valuables, including medications, at home the day of surgery. If you are going home after surgery, a licensed meals on wheels driver must drive you home.? - NO public transportation without another adult if you receive anesthesia. - We recommend that an adult stay with you for 24 hours following discharge. - We also recommend that you do not drive, make important decision, drink alcoholic beverages, or take any drugs that were not prescribed by your health care provider for at least 24 hours after your discharge time. For Pediatric surgeries, we recommend two adults accompany the child home. Follow any additional instructions given to you from your surgeon. VERBAL AND WRITTEN instructions given to _PATIENT_AND SPOUSE and asked if any additional questions and then verbalized understanding. Patient advised to call surgeon office or pre surgery nurse liaison [phone] if any additional questions.
[2025-10-13 10:49] VITALS: BMI 28.0
[2025-10-13 11:37] VITALS: BP 151/108; PULSE 79; RESP 18; TEMP 37; O2SAT 97
--- NOTE | 2025-10-22 12:49 | WPDANESEPPF ---
Anes - Initial Pre Proc Eval Procedure: Operation Date: 10/23/25 07:30 Proposed Procedures p Hand Assisted Laparoscopic Leslee Reversal - Maxine Wolfe MD Date/Time: 10/22/25 12:49 Surgeon: Maxine Wolfe MD Pre Op Diagnosis: perforated diverticulitis Patient Data Age: 60 Gender: F Height: 1.55 m Weight: 67.3 kg Last Vital Signs Temp 98.6 F 10/13/25 11:37 Pulse 79 10/13/25 11:37 Resp 18 10/13/25 11:37 BP 151/108 H 10/13/25 11:37 Pulse Ox 97 10/13/25 11:37 O2 Del Method Room Air 10/13/25 11:37 Allergies Allergy/AdvReac Type Severity Reaction Status Date / Time No Known Allergies Allergy Verified 10/23/25 07:19 Home Medications ?Medication ?Instructions ?Recorded ?Confirmed ?Type metronidazole 500 mg tablet 500 mg PO Q8H #20 tabs 09/19/25 10/13/25 Rx ondansetron HCl 4 mg tablet 4 mg PO Q6H PRN nausea and 09/19/25 10/13/25 Rx vomiting #10 tabs ciprofloxacin HCl 500 mg tablet 500 mg PO .COMPLEX #1 tablet 10/01/25 10/13/25 Rx metronidazole 500 mg tablet 500 mg PO .COMPLEX #3 tabs 10/01/25 10/13/25 Rx cholecalciferol (vitamin D3) 50 50 mcg PO DAILY 10/13/25 10/13/25 History mcg (2,000 unit) capsule metoprolol tartrate 25 mg tablet 25 mg PO BID 10/13/25 10/23/25 History Patient hx anesthesia problems: none Family hx anesthesia problems: none Results Review: All pre-operative results and documents have been reviewed as part of the pre-operative evaluation. [facility] Past Medical History Medical History GERD (gastroesophageal reflux disease) Hypertension Anxiety Irritable bowel Osteoporosis Perforation of sigmoid colon due to diverticulitis Sepsis Overweight Smoker ETOH abuse Surgical History Surgical History H/O abdominal surgery Hx of exploratory laparotomy exploratory laparotomy, resection of perforated sigmoid diverticulitis, creation of end colostomy 08/12 Dr. Wolfe History of hysterectomy History of cholecystectomy History of colostomy Hx of tonsillectomy H/O laparoscopy Social History Social History Smoking packs per day: 1 Smoking cigarettes per day: 20.0 Years smoked: 25 Smoking pack-years: 25.00 Smoking status: Never smoker Tobacco type: cigarettes and e-cigarettes/vaping Additional smoking assessment comments: CURRENTLY VAPES AT TIMES Alcohol intake: current Drinks per week: 1 Alcohol use details: every day drinker Substance use: never Lack of Transportation: No Lack of Food: Never True Current Housing: I Have Housing Concerned About Future Housing: No Difficulty Paying Gas/Electric Bills: No Difficulty Paying for Meds: No Currently Unemployed: No Education: High School Diploma/GED Difficulty w/ Childcare or Family Care: No Living arrangements: with family Spiritual care concerns: No Comments ekg 08/14 ST, echo ef 50-55% grade 1 DD Anes - Eval Final PreProcedure Day of Procedure 10/22/25 12:49 Patient weight: overweight Heart: regular rate and rhythm Lungs: clear to auscultation Airway: Mallampati scale class III Neurological: alert and oriented Last oral intake: >/= 8 hours ASA classification: III Emergent: no Anesthetic plan: proceed Anesthesia type and monitoring: general Results Review: All pre-operative results and documents have been reviewed as part of the pre-operative evaluation. Informed Consent: The patient's anesthetic plan and its attendant risks and benefits were discussed with the patient/family/POA. Questions were solicited and answers provided to the satisfaction of the patient/family/POA.
[2025-10-23] VITALS (17 sets, daily range): BP systolic 91–128; BP diastolic 60–81; PULSE 55–72; RESP 14–21; TEMP 36.1–36.5; O2SAT 91–100
[2025-10-23] MEDS: LACTATED RINGERS 1,000 ML 30 ML IV CONT ×2 (06:30→10:45)
[2025-10-23] MEDS: KETOROLAC 15 MG/ML VIAL (*BKC) IV PUSH (06:45)
[2025-10-23] MEDS: ACETAMINOPHEN 500 MG TABLET 1000 MG PO (06:45)
--- NOTE | 2025-10-23 07:21 | WPDHPUPDATE1 ---
History and Physical Update Update Date/Time: 10/23/25 07:21 History and Physical has been reviewed, including an updated exam of the patient. There are NO changes in the patient's condition. Risks, benefits, and alternatives have been discussed and questions answered. Patient agrees to proceed with procedure.
[2025-10-23] MEDS: BUPIVACAINE/EPINEPHRINE 0.5% 30 ML VIAL INFILTRATE (07:32)
[2025-10-23] MEDS: ceFAZolin 2 GM in SODIUM CHLORIDE 0.9% IV 50 ML 100 ML IVPB ×3 (07:32→22:39)
[2025-10-23] MEDS: metroNIDAZOLE 500 MG/ISO 100ML 500 MG/100 ML BAG 100 MG IVPB (07:42)
--- NOTE | 2025-10-23 09:48 | S_PTH ---
PATIENT: Nanci Linder LOC: [id number] U#:[id number] AGE/SX: 60/F ROOM: 326 RE10/23/[address]: Daniela Ha PA-C : 1965 BED: 01 DIS: 10/27/2025 SPEC #: [id number] RECD: 10/23/25 11:35 STATUS: MARLIN ASH #: [id number] TONY: 10/23/25 09:[address]: Maxine Wolfe DEPT: [facility] Surgical RECD BY: Karla Sharp ENTERED: 10/23/25 11:38 SP TYPE: Surgical OTHR DR: Scott Wood, Tissues: A - Colon Segment NonTumor Procedures: Hematoxylin and Eosin Stain Gross and Microscopic Level 5
--- NOTE | 2025-10-23 10:57 | W.PM.PROC2 ---
Procedure Note - Detailed Date of Procedure 10/23/25 Pre-op Diagnosis perforated diverticulitis Post-op Diagnosis Same Procedure Performed laparoscopic Leslee's reversal, extensive lysis of adhesions Surgeon Maxine Wolfe MD Research Chief Engineer MD Bernardo Anesthesia General and Local Indications 60-year-old female initially presented with perforated diverticulitis necessitating emergent Leslee's procedure. Patient has done well and is now set up for interval Leslee's reversal. Patient had a Hypaque enema showing the pouch was largely unremarkable. Findings dense midline adhesions from previous midline incision, adhesions in the pelvis of small bowel, adhesions around the sigmoid colon colostomy site, some large diverticula around previous colostomy site but no evidence of active diverticulitis Description of Procedure The patient was taken to the operating room and placed in the modified lithotomy position. After adequate induction of general anesthesia, the patient was prepped and draped in the normal sterile fashion. A time-out was then done to verify the patient's identity, as well as the procedure being performed. A 5 mm incision was made in the right lower quadrant. A Veress needle was then placed into the peritoneal cavity. CO2 gas was then insufflated. After adequate pneumoperitoneum was achieved, the Veress needle was removed and a 5 mm Optiview trocar was placed under direct visualization. Once confirmed in position, the obturator was removed leaving the trocar in the abdominal. I then placed the endoscope through the trocar and examined the abdomen. There was noted to be dense adhesions to the anterior midline and pelvis. There was also noted to be adhesions around the left lower quadrant colostomy site. I then placed a 2nd 5 mm port under direct visualization in the right mid abdomen. Using the LigaSure device, I slowly took down the midline adhesions first, including the falciform. I then careful took down the adhesions around the left lower quadrant colostomy site, freeing up the intra-abdominal portion of the proximal sigmoid colon. I then examined the descending colon and freed up the lateral attachments. I then was able to take down the adhesions in the pelvis, this included loops of small intestine that were adhesed to the pelvic. I was then able to identify the rectal stump. The rectal stump was noted to have good length and did not have any active inflammation. Dr. Chang placed a sizer into the rectum and measured approximately 15 cm from the anal verge. At this point, the colostomy was closed and taken down from the abdominal wall. Once completely freed, we examined the previous colostomy site. There was noted to be some large diverticula near the previous colostomy site, however, there was no active diverticulitis. At this point, we transected the colostomy site approximately 5 cm from the end to include these large diverticulum. A manual pursestring suture was used and a 28 cm anvil was placed in the proximal sigmoid colon. This was then dropped back into the abdominal cavity. I then closed the fascia of the previous colostomy site with a running 1 PDS suture. We then completed the end to end anastomosis between the proximal sigmoid colon and rectal pouch using a 28 EEA stapler. This was done under direct visualization and was noted to be tension-free. The proximal colon was checked and no twisting or tension was noted. Air leak test was then performed with the anoscope and no leak was noted. The staple line was also examined under direct visualization and noted to be intact. I then copiously irrigated the abdomen and no other pathology was seen. The abdomen was then desufflated and the ports were removed. All skin sites were closed with shannon, including loosely approximating the previous colostomy site. Endoform jacky were placed between the shannon in the previous colostomy site. The patient tolerated procedure well and was extubated postoperatively. She will be transferred to in stable condition. Please note Dr. Chang was present for the entirety procedure and was instrumental in the completion and efficiency of this case. He performed all rectal portions of the case, while I was doing the intra-abdominal portions. He also helped me with the anastomosis and placement of the proximal anvil. Estimated Blood Loss 50 Pathology Yes Complications No immediate complications Condition Stable Disposition PACU [facility] Billing Surgery - Charge Forward: Surgery Billing
[2025-10-23] MEDS: fentaNYL CITRATE INJ (*CRX) 100 MCG/2 ML VIAL 25 MCG IV PUSH ×6 (11:23→11:47)
[2025-10-23] MEDS: HYDROmorphone HCL INJ (*CRX) 1 MG/ML SYR 0.5 MG IV PUSH (11:54)
[2025-10-23] MEDS: HYDROmorphone HCL INJ (*CRX) 1 MG/ML SYR IV PUSH ×3 (13:02→20:38)
[2025-10-23] MEDS: LACTATED RINGERS 1,000 ML 100 ML IV CONT (15:38)
[2025-10-23] MEDS: FAMOTIDINE 20 MG/2 ML VIAL IV PUSH (20:26)
[2025-10-24] VITALS (7 sets, daily range): BP systolic 104–130; BP diastolic 61–76; PULSE 79–97; RESP 14–18; TEMP 36.3–37; O2SAT 92–99
[2025-10-24] MEDS: HYDROmorphone HCL INJ (*CRX) 1 MG/ML SYR IV PUSH ×2 (01:44→04:57)
[2025-10-24] MEDS: LACTATED RINGERS 1,000 ML 100 ML IV CONT ×2 (02:24→14:03)
[2025-10-24 07:24] LABS: Hematocrit 35.7 % (37.0-47.0); Hemoglobin 11.3 g/dL (12.0-15.0); Mean Corpuscular HGB Conc 31.7 g/dl (32-36); Mean Corpuscular Hemoglobin 29.9 pg (26-34); Mean Corpuscular Volume 94.4 fl (80-100); Platelet Count Result 284 k/mm3 (150-375); Red Blood Count 3.78 M/mm3 (4.2-5.4); White Blood Count 12.5 K/mm3 (4.5-10.0)
[2025-10-24 07:52] LABS: Anion Gap 3 mmol/L (4-12); Blood Urea Nitrogen 7 mg/dL (7-17); Calcium 8.3 mg/dL (8.4-10.2); Carbon Dioxide 22 mmol/L (22-30); Chloride 108 mmol/L (98-107); Estimated CRCL calculation 59 ml/min; Estimated Glomerular Filt Rate > 60; Glucose 97 mg/dL (65-110); Potassium 3.7 mmol/L (3.4-5.0); Sodium 133 mmol/L (137-145)
[2025-10-24] MEDS: FAMOTIDINE 20 MG/2 ML VIAL IV PUSH ×2 (08:05→20:10)
[2025-10-24] MEDS: IBUPROFEN IV 800 MG/200 ML 800 MG/200 ML BAG 200 MG IVPB (11:10)
[2025-10-24] MEDS: HYDROcodone/acetaminophen (*CRX) 5-325 MG TABLET 1 TAB PO ×2 (14:53→21:08)
--- NOTE | 2025-10-24 14:58 | PM.PNGS ---
Progress Note: A&P Assessment and Plan (1) Diverticulitis: Code(s): K57.92 - Diverticulitis of intestine, part unspecified, without perforation or abscess without bleeding Status: Acute Assessment and Plan: Pod 1 status post laparoscopic Leslee's reversal, extensive lysis of adhesions. Patient complaining of significant abdominal pain. However, she does not want to take oral narcotics, as she believes that they cause her to be constipated. Patient is unable to get out of bed due to pain. She did have a small bowel movement this morning. Good bowel sounds on exam. Incisions healing as expected. Encouraged patient to take narcotics as needed for pain and emphasized the importance of ambulation after surgery. Patient tolerated clear liquid diet without any nausea or vomiting. Advanced to full liquid diet today. Plan Discussed patient's case and plan of care with Dr. Wolfe. Subjective Subjective Date/Time Seen: 10/24/25 14:58 Post Op day: 1 (Laparoscopic Leslee's reversal, extensive lysis of adhesions) Patient reports: still having pain, flatus, bowel movement and afebrile Interval history: Patient complaining of abdominal pain today. She has not yet gotten out of bed. She has had a bowel movement and passed flatus. Exam Const: General: uncomfortable GI: Inspection: non-distended GI Palp: Yes Soft to palpation, Yes Tenderness to palpation present (GI) (diffusely) and No Guarding due to palpation present (GI) Auscultation: normal bowel sounds Other: Bandages saturated and replaced today. Left side incision repacked today. Healing appropriately. Objective Data Vital Signs Vital Signs: Vital Signs - 24 hr 10/23/25 18:03 10/23/25 20:00 10/23/25 20:26 Temperature 97.5 F L 97.6 F Pulse Rate 72 62 Respiratory Rate 16 18 Blood Pressure 100/70 113/65 Pulse Oximetry 95 97 98 Oxygen Delivery Nasal Cannula Oxygen Flow Rate 2 10/24/25 00:30 10/24/25 04:31 10/24/25 08:05 Temperature 98.1 F 98.3 F Pulse Rate 79 85 89 Respiratory Rate 18 18 14 Blood Pressure 112/61 104/72 Pulse Oximetry 98 99 99 Oxygen Delivery Nasal Cannula Oxygen Flow Rate 2 10/24/25 08:14 10/24/25 10:15 10/24/25 12:28 Temperature 97.4 F L 97.8 F Pulse Rate 89 97 Respiratory Rate 14 16 Blood Pressure 130/76 118/67 Pulse Oximetry 96 92 96 Oxygen Delivery Nasal Cannula Oxygen Flow Rate 2 Intake/Output Intake/Output: Intake & Output 10/21/25 10/22/25 10/23/25 10/24/25 23:59 23:59 23:59 23:59 Intake Total 1750 3156 Output Total 225 400 Balance 1525 2756 Meds/Results Medications: Active Medications Generic Name Dose Route Start Last Admin Trade Name Freq PRN Reason Stop Dose Admin Hydrocodone Bitart/Acetaminophen 1 tab 10/23/25 10:51 10/24/25 14:53 Hydrocodone/Acetaminophen (*Crx) 5-325 Mg Tablet PO 1 tab Q4H PRN Administration Pain Rated 4-6 Enoxaparin Sodium 40 mg 10/24/25 09:00 10/24/25 08:20 Enoxaparin 40 Mg/0.4 Ml Syringe SUB-Q Not Given DAILY ARSLAN Famotidine 20 mg 10/23/25 21:00 10/24/25 08:05 Famotidine 20 Mg/2 Ml Vial IV PUSH 20 mg Q12HR ARSLAN Administration Hydromorphone HCl 1 mg 10/23/25 10:45 10/24/25 04:57 Hydromorphone Hcl Inj (*Crx) 1 Mg/Ml Syr IV PUSH 1 mg Q2H PRN Administration Pain Rated 7-10 Hydromorphone HCl 0.5 mg 10/23/25 10:45 Hydromorphone Hcl Inj (*Crx) 1 Mg/Ml Syr IV PUSH Q2H PRN Pain Rated 4-6 Lactated Ringer's 1,000 mls @ 100 mls/hr 10/23/25 10:45 10/24/25 14:03 Lr - Lactated Ringers Iv IV CONT 100 mls/hr .Q10H ARSLAN Administration Ibuprofen 800 mg in 200 mls @ 400 mls/hr 10/23/25 10:45 10/24/25 12:10 Caldolor 800 Mg/200 Ml IVPB Infused Q6H PRN Infusion Breakthrough Pain Rated 1-3 or NPO Naloxone HCl 0.1 mg 10/23/25 10:45 Naloxone Hcl 0.4 Mg/Ml Vial IV PUSH Q2M PRN Opiate Reversal Ondansetron HCl 4 mg 10/23/25 10:45 Ondansetron Inj 4 Mg/2 Ml Vial IV PUSH Q4H PRN Nausea And Vomiting Labs Labs: Laboratory Results - last 24 hr 10/24/25 06:29 WBC 12.5 H RBC 3.78 L Hgb 11.3 L Hct 35.7 L MCV 94.4 MCH 29.9 MCHC 31.7 L RDW 13.1 Plt Count 284 MPV 9.9 Sodium 133 L Potassium 3.7 Chloride 108 H Carbon Dioxide 22 Anion Gap 3 L BUN 7 Creatinine 0.73 Estim Creat Clear Calc 59 Estimated GFR > 60 Glucose 97 Calcium 8.3 L
[2025-10-25] MEDS: LACTATED RINGERS 1,000 ML 100 ML IV CONT ×2 (00:10→13:29)
[2025-10-25] MEDS: HYDROmorphone HCL INJ (*CRX) 1 MG/ML SYR IV PUSH ×4 (00:30→17:24)
[2025-10-25] MEDS: HYDROcodone/acetaminophen (*CRX) 5-325 MG TABLET 1 TAB PO (05:06)
[2025-10-25 06:26] VITALS: BP 126/76; PULSE 104; RESP 18; TEMP 36.6; O2SAT 91
[2025-10-25] MEDS: FAMOTIDINE 20 MG/2 ML VIAL IV PUSH (08:02)
[2025-10-25] MEDS: ENOXAPARIN 40 MG/0.4 ML SYRINGE SUB-Q (08:02)
[2025-10-25] MEDS: HYDROmorphone HCL INJ (*CRX) 1 MG/ML SYR 0.5 MG IV PUSH ×2 (10:02→18:36)
[2025-10-25 14:00] VITALS: BP 131/89; PULSE 115; RESP 14; TEMP 37.5; O2SAT 90
--- NOTE | 2025-10-25 18:06 | PM.PNGS ---
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 She is tolerating full liquids adequately. Her she has not getting adequate pain relief with oral analgesics. I spoke with her nurse and recommended using the intravenous analgesics today as her pain control is not good otherwise. Wounds are healing well. Advance to soft diet and continue ambulation. Continue to monitor but doing well Subjective Subjective Date/Time Seen: 10/25/25 18:06 Post Op day: 2 Patient reports: no new complaints, still having pain (Pain pills are not effective, IV pain medication providing much better relief), tolerating liquids well, voiding w/o difficulty, flatus, no bowel movement and afebrile Exam Const: General: comfortable and no acute distress Orientation/consciousness: patient oriented x3 GI: Inspection: no abdominal wall ecchymosis, non-distended and incision (Trocar sites and stoma site looks good. Telfa jacky in place, serous drain) GI Palp: Yes Soft to palpation, Yes Tenderness to palpation present (GI) (More tender than expected. Very painful to remove dressings), No Guarding due to palpation present (GI) and No Rebound tenderness present Auscultation: normal bowel sounds Neuro: General: patient oriented x3 and no focal motor deficits Extrem: General: no calf tenderness and no edema Psych: Affect: normal affect Insight: Good insight present (Psych) Judgement: Good judgement present (Psych) Objective Data Vital Signs Vital Signs: Vital Signs - 24 hr 10/24/25 19:42 10/24/25 20:10 10/25/25 06:26 Temperature 37.0 C 36.6 C Pulse Rate 89 104 H Respiratory Rate 17 18 Blood Pressure 127/72 126/76 Pulse Oximetry 97 91 Oxygen Delivery Room Air 10/25/25 08:00 10/25/25 14:00 Temperature 37.5 C Pulse Rate 115 H Respiratory Rate 14 Blood Pressure 131/89 Pulse Oximetry 90 Oxygen Delivery Room Air Intake/Output Intake/Output: Intake & Output 10/22/25 10/23/25 10/24/25 10/25/25 23:59 23:59 23:59 23:59 Intake Total 1750 3274 2120 Output Total 225 400 Balance 1525 2874 2120 Meds/Results Medications: Active Medications Generic Name Dose Route Start Last Admin Trade Name Freq PRN Reason Stop Dose Admin Hydrocodone Bitart/Acetaminophen 1 tab 10/23/25 10:51 10/25/25 05:06 Hydrocodone/Acetaminophen (*Crx) 5-325 Mg Tablet PO 1 tab Q4H PRN Administration Pain Rated 4-6 Enoxaparin Sodium 40 mg 10/24/25 09:00 10/25/25 08:02 Enoxaparin 40 Mg/0.4 Ml Syringe SUB-Q 40 mg DAILY ARSLAN Administration Hydromorphone HCl 1 mg 10/23/25 10:45 10/25/25 17:24 Hydromorphone Hcl Inj (*Crx) 1 Mg/Ml Syr IV PUSH 1 mg Q2H PRN Administration Pain Rated 7-10 Hydromorphone HCl 0.5 mg 10/23/25 10:45 10/25/25 10:02 Hydromorphone Hcl Inj (*Crx) 1 Mg/Ml Syr IV PUSH 0.5 mg Q2H PRN Administration Pain Rated 4-6 Ibuprofen 800 mg in 200 mls @ 400 mls/hr 10/23/25 10:45 10/24/25 12:10 Caldolor 800 Mg/200 Ml IVPB Infused Q6H PRN Infusion Breakthrough Pain Rated 1-3 or NPO Metoprolol Tartrate 25 mg 10/26/25 09:00 Metoprolol Tartrate 25 Mg Tablet PO BID ARSLAN Naloxone HCl 0.1 mg 10/23/25 10:45 Naloxone Hcl 0.4 Mg/Ml Vial IV PUSH Q2M PRN Opiate Reversal Ondansetron HCl 4 mg 10/23/25 10:45 Ondansetron Inj 4 Mg/2 Ml Vial IV PUSH Q4H PRN Nausea And Vomiting
[2025-10-25 19:58] VITALS: BP 143/89; PULSE 109; RESP 17; TEMP 37; O2SAT 96
[2025-10-25] MEDS: METOPROLOL TARTRATE 25 MG TABLET PO (20:12)
[2025-10-26] MEDS: HYDROmorphone HCL INJ (*CRX) 1 MG/ML SYR IV PUSH ×5 (00:39→20:40)
[2025-10-26 05:38] VITALS: BP 146/97; PULSE 88; RESP 18; TEMP 36.8; O2SAT 93
[2025-10-26 06:01] LABS: Hematocrit 35.8 % (37.0-47.0); Hemoglobin 11.4 g/dL (12.0-15.0); Immature Granulocyte Percent A 0.4 % (0-0.5); Lymphocytes Absolute Auto 1.69 K/mm3 (0.9-3.2); Mean Corpuscular HGB Conc 31.8 g/dl (32-36); Mean Corpuscular Hemoglobin 29.8 pg (26-34); Mean Corpuscular Volume 93.7 fl (80-100); Nucleated Red Blood Cells Absolute Auto 0.000 K/mm3 (0.0-0.012); Nucleated Red Blood Cells Perc 0.0 % (0.0-0.2); Platelet Count Result 260 k/mm3 (150-375); Red Blood Count 3.82 M/mm3 (4.2-5.4); White Blood Count 11.0 K/mm3 (4.5-10.0)
[2025-10-26 06:28] LABS: Anion Gap 1 mmol/L (4-12); Blood Urea Nitrogen 4 mg/dL (7-17); Calcium 8.6 mg/dL (8.4-10.2); Carbon Dioxide 28 mmol/L (22-30); Chloride 104 mmol/L (98-107); Estimated CRCL calculation 57 ml/min; Estimated Glomerular Filt Rate > 60; Glucose 104 mg/dL (65-110); Potassium 3.7 mmol/L (3.4-5.0); Sodium 133 mmol/L (137-145)
[2025-10-26 06:43] LABS: CRP 20.8 mg/dL (<1.0)
[2025-10-26 08:36] VITALS: PULSE 88
[2025-10-26] MEDS: METOPROLOL TARTRATE 25 MG TABLET PO ×2 (08:36→20:40)
[2025-10-26 14:00] VITALS: BP 134/89; PULSE 84; RESP 16; TEMP 36.7; O2SAT 93
--- NOTE | 2025-10-26 15:16 | PM.PNGS ---
Progress Note: A&P Assessment and Plan (1) H/O abdominal surgery: Code(s): Z98.890 - Other specified postprocedural states Status: Acute Assessment and Plan: doing well but still having more postoperative pain than I would expect. All else seems to be going just as expected. White blood cell count is decreasing. She is tolerating low-fiber diet fairly well. Has active normal bowel sounds. Advised increased ambulation. Repeat labs and exam again tomorrow. Subjective Subjective Date/Time Seen: 10/26/25 15:16 Post Op day: 3 Patient reports: still having pain, tolerating a regular diet, voiding w/o difficulty and afebrile Exam Const: General: comfortable and awake Orientation/consciousness: patient oriented x3 GI: Inspection: non-distended, incision ( DRY, HEALING, DRESSING OVER STOMA SITE) and scaphoid GI Palp: Yes Soft to palpation and Yes Tenderness to palpation present (GI) Auscultation: normal bowel sounds Objective Data Vital Signs Vital Signs: Vital Signs - 24 hr 10/25/25 19:58 10/25/25 20:20 10/26/25 05:38 Temperature 37.0 C 36.8 C Pulse Rate 109 H 88 Respiratory Rate 17 18 Blood Pressure 143/89 H 146/97 H Pulse Oximetry 96 93 Oxygen Delivery Room Air 10/26/25 08:00 10/26/25 08:36 Temperature Pulse Rate 88 Respiratory Rate Blood Pressure Pulse Oximetry Oxygen Delivery Room Air Intake/Output Intake/Output: Intake & Output 10/23/25 10/24/25 10/25/25 10/26/25 23:59 23:59 23:59 23:59 Intake Total 1750 3274 2120 240 Output Total 225 400 Balance 1525 2874 2120 240 Meds/Results Medications: Active Medications Generic Name Dose Route Start Last Admin Trade Name Freq PRN Reason Stop Dose Admin Hydrocodone Bitart/Acetaminophen 1 tab 10/23/25 10:51 10/25/25 05:06 Hydrocodone/Acetaminophen (*Crx) 5-325 Mg Tablet PO 1 tab Q4H PRN Administration Pain Rated 4-6 Enoxaparin Sodium 40 mg 10/24/25 09:00 10/26/25 08:37 Enoxaparin 40 Mg/0.4 Ml Syringe SUB-Q Not Given DAILY ARSLAN Hydromorphone HCl 1 mg 10/23/25 10:45 10/26/25 13:52 Hydromorphone Hcl Inj (*Crx) 1 Mg/Ml Syr IV PUSH 1 mg Q2H PRN Administration Pain Rated 7-10 Hydromorphone HCl 0.5 mg 10/23/25 10:45 10/25/25 18:36 Hydromorphone Hcl Inj (*Crx) 1 Mg/Ml Syr IV PUSH 0.5 mg Q2H PRN Administration Pain Rated 4-6 Ibuprofen 800 mg in 200 mls @ 400 mls/hr 10/23/25 10:45 10/24/25 12:10 Caldolor 800 Mg/200 Ml IVPB Infused Q6H PRN Infusion Breakthrough Pain Rated 1-3 or NPO Metoprolol Tartrate 25 mg 10/25/25 21:00 10/26/25 08:36 Metoprolol Tartrate 25 Mg Tablet PO 25 mg Q12HR ARSLAN Administration Naloxone HCl 0.1 mg 10/23/25 10:45 Naloxone Hcl 0.4 Mg/Ml Vial IV PUSH Q2M PRN Opiate Reversal Ondansetron HCl 4 mg 10/23/25 10:45 Ondansetron Inj 4 Mg/2 Ml Vial IV PUSH Q4H PRN Nausea And Vomiting Labs Labs: Laboratory Results - last 24 hr 10/26/25 05:45 WBC 11.0 H RBC 3.82 L Hgb 11.4 L Hct 35.8 L MCV 93.7 MCH 29.8 MCHC 31.8 L RDW 13.2 Plt Count 260 MPV 9.2 Immature Gran % (Auto) 0.4 Neut % (Auto) 73.7 H Lymph % (Auto) 15.4 L [place] % (Auto) 8.7 H Eos % (Auto) 1.5 Baso % (Auto) 0.3 Lymph # (Auto) 1.69 [place] # (Auto) 1.0 H Eos # (Auto) 0.2 Baso # (Auto) 0.0 Abs Immat Gran (auto) 0.04 H Absolute Neuts (auto) 8.1 H Absolute Nucleated RBC 0.000 Nucleated RBC % 0.0 Sodium 133 L Potassium 3.7 Chloride 104 Carbon Dioxide 28 Anion Gap 1 L BUN 4 L Creatinine 0.66 L Estim Creat Clear Calc 57 Estimated GFR > 60 Glucose 104 Calcium 8.6 C-Reactive Protein 20.8 H
[2025-10-26 20:00] VITALS: PULSE 88; RESP 16; O2SAT 93
[2025-10-26 20:40] VITALS: PULSE 88
[2025-10-26] MEDS: FAMOTIDINE 20 MG TABLET PO (20:40)
[2025-10-27] MEDS: HYDROmorphone HCL INJ (*CRX) 1 MG/ML SYR 0.5 MG IV PUSH (02:03)
[2025-10-27] MEDS: HYDROmorphone HCL INJ (*CRX) 1 MG/ML SYR IV PUSH ×2 (04:52→08:12)
[2025-10-27 06:00] VITALS: BP 143/80; PULSE 75; RESP 16; TEMP 36.3; O2SAT 96
[2025-10-27 07:15] LABS: CRP 8.1 mg/dL (<1.0)
[2025-10-27 08:12] VITALS: PULSE 75
[2025-10-27] MEDS: FAMOTIDINE 20 MG TABLET PO (08:12)
[2025-10-27] MEDS: METOPROLOL TARTRATE 25 MG TABLET PO (08:12)
[2025-10-27] MEDS: HYDROcodone/acetaminophen (*CRX) 5-325 MG TABLET 1 TAB PO (12:40)
[2025-10-27 14:00] VITALS: BP 128/75; PULSE 69; RESP 19; TEMP 36; O2SAT 97
--- NOTE | 2025-10-27 14:48 | P.PNGS_ITS ---
Progress Note: A&P Assessment and Plan (1) H/O abdominal surgery: Code(s): Z98.890 - Other specified postprocedural states Status: Acute Assessment and Plan: Patient is doing well, but still requiring Dilaudid for pain. Patient stated that she did not feel [place] was touching the pain. Switched this to Percocet and encouraged patient to try oral pain medication over IV pain meds. Encouraged increased ambulation. Will repeat labs and exam tomorrow. Hopefully home tomorrow. Plan Discussed patient's case and plan of care with Dr. Wolfe. Subjective Subjective Date/Time Seen: 10/27/25 14:48 Patient reports: no new complaints and still having pain Interval history: Patient doing well this morning. She was able to get up and walk around the room over the weekend. However, patient has still been taking Dilaudid for pain. Patient states that the packing has not been removed from her left abdominal wound since Monday. Exam Const: General: comfortable and no acute distress GI: Inspection: non-distended GI Palp: Yes Soft to palpation and Yes Tenderness to palpation present (GI) (left sided abdominal pain) Auscultation: normal bowel sounds Skin: General skin exam: normal color and no rashes or lesions noted Extrem: General: normal to inspection Objective Data Vital Signs Vital Signs: Vital Signs - 24 hr 10/26/25 20:00 10/26/25 20:40 10/27/25 06:00 Temperature 97.3 F L Pulse Rate 88 88 75 Respiratory Rate 16 16 Blood Pressure 143/80 H Pulse Oximetry 93 96 Oxygen Delivery Room Air 10/27/25 08:00 10/27/25 08:12 Temperature Pulse Rate 75 Respiratory Rate Blood Pressure Pulse Oximetry Oxygen Delivery Room Air Intake/Output Intake/Output: Intake & Output 10/24/25 10/25/25 10/26/25 10/27/25 23:59 23:59 23:59 23:59 Intake Total 3274 2120 360 Output Total 400 Balance 2874 2120 360 Meds/Results Medications: Active Medications Generic Name Dose Route Start Last Admin Trade Name Freq PRN Reason Stop Dose Admin Enoxaparin Sodium 40 mg 10/24/25 09:00 10/27/25 08:13 Enoxaparin 40 Mg/0.4 Ml Syringe SUB-Q Not Given DAILY ARSLAN Famotidine 20 mg 10/26/25 21:00 10/27/25 08:12 Famotidine 20 Mg Tablet PO 20 mg Q12HR ARSLAN Administration Hydromorphone HCl 1 mg 10/23/25 10:45 10/27/25 08:12 Hydromorphone Hcl Inj (*Crx) 1 Mg/Ml Syr IV PUSH 1 mg Q2H PRN Administration Pain Rated 7-10 Hydromorphone HCl 0.5 mg 10/23/25 10:45 10/27/25 02:03 Hydromorphone Hcl Inj (*Crx) 1 Mg/Ml Syr IV PUSH 0.5 mg Q2H PRN Administration Pain Rated 4-6 Ibuprofen 800 mg in 200 mls @ 400 mls/hr 10/23/25 10:45 10/24/25 12:10 Caldolor 800 Mg/200 Ml IVPB Infused Q6H PRN Infusion Breakthrough Pain Rated 1-3 or NPO Metoprolol Tartrate 25 mg 10/25/25 21:00 10/27/25 08:12 Metoprolol Tartrate 25 Mg Tablet PO 25 mg Q12HR ARSLAN Administration Naloxone HCl 0.1 mg 10/23/25 10:45 Naloxone Hcl 0.4 Mg/Ml Vial IV PUSH Q2M PRN Opiate Reversal Ondansetron HCl 4 mg 10/23/25 10:45 Ondansetron Inj 4 Mg/2 Ml Vial IV PUSH Q4H PRN Nausea And Vomiting Oxycodone/Acetaminophen 1 tablet 10/27/25 13:16 Oxycodone/Acetaminophen (*Crx) 5-325 Mg Tablet PO Q4H PRN Pain Rated 4-10 Labs Labs: Laboratory Results - last 24 hr 10/27/25 05:11 C-Reactive Protein 8.1 H
--- NOTE | 2025-10-27 15:57 | PM.DS ---
DS: Admitting Diagnosis Discharge Date 10/27/2025 Admitting Diagnosis perforated diverticulitis DS: Discharge Diagnosis Discharge Diagnosis (1) Perforation of sigmoid colon due to diverticulitis: Code(s): K57.20 - Diverticulitis of large intestine with perforation and abscess without bleeding Status: Acute DS: Summary Hospital Course Reason for hospitalization: Patient underwent exploratory laparotomy, resection of perforated sigmoid diverticulitis creation of end colostomy on 08/12/2025. She was discharged with instructions to continue low-fiber diet and follow up with Dr. Noyola in 2 weeks. she was seen on 10/01/2025 in office to discuss further surgical intervention to take down ostomy. Scheduled for procedure on 10/23/2025. Hospital Course: Patient underwent laparoscopic Leslee's reversal, extensive lysis of adhesions on 10/23/25. Tolerated the procedure without any immediate complications. She was sent to the medical surgical floor in stable condition. The following day, patient was complaining of significant abominal pain. She was hesistant to take oral narcotics, but was unable to move or get out of bed due to pain. Encouraged her to take pain meds as needed and ambulate as tolerated. She was tolerating her clear liquid diet so she was advanced. Patient stayed over the weekend for pain control. By Monday, patient was able to ambulate with less pain. She did have packing in her left sided abdominal wound that was removed. Wounds healing appropriately. Surgically stable for discharge with oral narcotics and follow up in one week. Status at Discharge Functional status at discharge: independent ambulation Time Spent with Patient Time attestation: Total time spent providing and/or coordinating discharge services: Time spent: Greater than 30 minutes Exam Const: General: comfortable and no acute distress Eyes: General: appearance normal, both eyes and all related structures Resp: Effort & Inspection: normal respiratory effort Cardio: Rate: regular rate GI: Inspection: non-distended Auscultation: normal bowel sounds Skin: General skin exam: normal color and no rashes or lesions noted Neuro: General: patient oriented x3 and no focal motor deficits Extrem: General: normal to inspection Psych: Affect: normal affect DS: Data Data Completed and Pending Completed studies during hospitalization: Pending at discharge 10/23/25 09:48 Surgical [PTH] Routine Labs on day of discharge: Labs from last 24 hours 10/27/25 05:11 C-Reactive Protein 8.1 H Procedures/Treatments: Procedures Operation Date: 10/23/25 07:30 Actual Procedure Side Surgeon p Hand Assisted Laparoscopic Leslee Reversal Not Applicable Maxine Wolfe MD Discharge Plan Discharge Attending physician on discharge: Maxine Wolfe Consulting providers: Corby Berry; Jcarlos Tejada Jr. Discharging Clinician: Daniela Ha Patient Disposition: Home Activity: may shower and no straining Diet: as tolerated Wound Care Instructions: incision open to air and other - see discharge instructions Discharge Instructions: OK to shower over incisions with soap and water. Cover left abdominal incision site with gauze and secure with tape. No heavy lifting >10-15 pounds for the next two weeks until otherwise instructed by Dr. oWlfe. Up and walking 10-30 minutes 3 times a day. Resume previous home medications. Prescription medications sent to your pharmacy. Take Tylenol 500mg every 6 hours and Ibuprofen 600mg every 6 hours for the first 2 days, then as needed. You may apply ice to the surgical site as needed (30 min on, 30 min off). No driving for 3 days after surgery or while taking narcotic pain medication. Continue a low fiber diet for a few more days before transitioning to your regular diet. Call the office at to schedule a follow up appointment in one week for wound check. Call the office or go to the Emergency Department for: - Bleeding or increased drainage from wounds - Severe pain - Vomiting - Fever greater than 101 degrees Patient Instructions: Antibiotic Form Patient Language: Portuguese Stand Alone Forms: General Discharge Information Follow-up/Referrals: Maxine Wolfe MD [Physician, General Surgery] - Call for Appointment Referral Note: 1 week Discharge Medications: New docusate sodium [Colace] 100 mg capsule 100 mg PO BID Qty: 30 0RF oxycodone-acetaminophen 5-325 mg Tablet 1 tablet PO Q4H PRN (Reason: Pain Rated 4-10) Qty: 12 0RF Continued ciprofloxacin HCl 500 mg tablet 500 mg PO .COMPLEX Qty: 1 0RF Rx Instructions: 500 mg orally 1 tablet by mouth at 2pm; cholecalciferol (vitamin D3) 50 mcg (2,000 unit) capsule 50 mcg PO DAILY metoprolol tartrate 25 mg tablet 25 mg PO BID Patient Comments: FIRST DOSE 10/13/25 metronidazole 500 mg tablet 500 mg PO Q8H Qty: 20 0RF Date of admission: 10/23/25 10:46 Primary Care Provider: [place],Scott Maciel Admitting Provider: Maxine Wolfe Attending physician on admission: Daniela Ha Condition: Improved
== END 2025-10-27 16:20 | disposition home or self-care (01) | DRG 337 ==
LOC: ANH3MEDSUR 12:36
PROVIDERS: Surgery; Admitting Provider Surgery; PCP Internal Medicine
PROC: 0D1E4Z4 Bypass Large Intestine to Cutaneous, Percutaneous Endoscopic Approach (ICD-10-PCS; principal; 2025-10-23 07:30)
DX: Z43.3 Encounter for attention to colostomy (principal); K66.0 Peritoneal adhesions (postprocedural) (postinfection); F41.9 Anxiety disorder, unspecified; M81.0 Age-related osteoporosis without current pathological fracture; F17.290 Nicotine dependence, other tobacco product, uncomplicated; F10.10 Alcohol abuse, uncomplicated; I10 Essential (primary) hypertension; Z90.49 Acquired absence of other specified parts of digestive tract; Z87.19 Personal history of other diseases of the digestive system
CPT/HCPCS: 36415; 80048; 85025; 85027; 86140; 88307; J0690; A9270; C1729; J1100; J1171; J1650; J1741; J1836; J1885; J2003; J2405; J2704; J3010; J7030; J7120